=== PATIENT | male | born 1965 | race Caucasian/White ===

== ENCOUNTER → 2016-08-15 | Outpatient (CLI) | payer BC ==
--- NOTE | 2016-08-15 09:18 | NM ---
EXAMINATION TYPE: NM hepatobiliary w EF DATE OF EXAM: 08/15/2016 9:13 AM COMPARISON: NONE HISTORY: Right upper quadrant pain TECHNIQUE: After the intravenous administration of 5.44 mCi Tc 99m Mebrofenin hepatobiliary scintigra phy is performed. Immediate images post injection. FINDINGS: There is satisfactory initial accumulation of tracer by the liver. The gallbladder is visualized wit hin 6 minutes. The small bowel was not visualized until after the ingestion of ensure. At one hour 8 ounces of oral ensure plus is given to mimic CCK and gallbladder ejection fraction is calculated at 45 %, in the normal range. Therefore there is no scintigraphic evidence of cystic or common bile robin t obstruction to suggest acute cholecystitis or gallbladder dyskinesia. IMPRESSION: AMBIGUOUS EXAMINATION. I COULD NOT EXCLUDE A PARTIAL DISTAL COMMON DUCT OBSTRUCTION. ERCP VERSUS MRCP WOULD BE SUGGESTED.
== END | disposition home or self-care (01) ==
LOC: RADNMMAIN 06:58
PROVIDERS: ATTEND Surgery
DX: R10.84 Generalized abdominal pain (principal)
CPT/HCPCS: 78226; A9537

== ENCOUNTER 2018-11-03 01:58 | Emergency (ER) | payer BC ==
[2018-11-03 02:08] VITALS: RESP 18; TEMP 98.3
[2018-11-03] MEDS ORDERED: SODIUM CHLORIDE 0.9% 1,000 ML IV STA (02:21)
[2018-11-03] MEDS ORDERED: ONDANSETRON 4 MG/2 ML VIAL IVP STA (02:21)
[2018-11-03] MEDS ORDERED: DICYCLOMINE 10 MG/ML 2 ML AMP IM STA (02:22)
[2018-11-03] MEDS ORDERED: FAMOTIDINE 20 MG/2 ML VIAL IV STA (02:22)
--- NOTE | 2018-11-03 02:24 | ED ---
Nausea/Vomiting/Diarrhea HPI - General Source: patient Mode of arrival: ambulatory Limitations: no limitations <Radha Palomino - Last Filed: 11/03/18 04:10> <Imelda Clemens - Last Filed: 11/03/18 06:04> - General Chief complaint: Nausea/Vomiting/Diarrhea Stated complaint: Nausea Time Seen by Provider: 11/03/18 02:10 - History of Present Illness Initial comments: 53-year-old male patient presents to the emergency department today for evaluation of vomiting and diarrhea. Patient states symptoms started late last night have been persistent throughout the day today. Patient states he has had an amount of diarrhea and vomiting. Denies any hematemesis, hematochezia, or melena. Patient is concerned he may be some "bad eggs "at work last evening. Patient states he has had low-grade temperature around 100.4 throughout the night. States he is having generalized abdominal cramping. Denies any focal tenderness or pain. Patient does admit to cholecystectomy in the past but denies any other medical history or surgeries. Patient denies any recent rash, shortness breath, chest pain, back pain, numbness, tingling, dizziness, weakness, hematuria, dysuria, urinary urgency, urinary frequency, headache, visual changes, or any other complaints. (Radha Palomino) - Related Data Previous Rx's Medication Instructions Recorded Dicyclomine [Bentyl] 20 mg PO QID #12 tablet 11/03/18 Ondansetron [Zofran ODT] 4 mg PO Q8HR PRN #10 tab 11/03/18 Allergies Allergy/AdvReac Type Severity Reaction Status Date / Time Penicillins Allergy Unknown Verified 11/03/18 02:08 Childhood prednisone Allergy Rash/Hives Verified 11/03/18 02:08 Review of Systems ROS Other: All systems not noted in ROS Statement are negative. <Radha Palomino - Last Filed: 11/03/18 04:10> ROS Other: All systems not noted in ROS Statement are negative. <Imelda Clemens - Last Filed: 11/03/18 06:04> ROS Statement: Those systems with pertinent positive or pertinent negative responses have been documented in the HPI. Past Medical History Additional Past Medical History / Comment(s): GALLSTONES 2 YEARS AGO WHICH MADE HIM VERY SICK - HAD SOME LIVER PROBLEMS A RESULT History of Any Multi-Drug Resistant Organisms: None Reported Past Surgical History: Cholecystectomy Past Psychological History: No Psychological Hx Reported Smoking Status: Former smoker Past Alcohol Use History: None Reported Past Drug Use History: None Reported <Radha Palomino - Last Filed: 11/03/18 04:10> General Exam Limitations: no limitations General appearance: alert, in no apparent distress, other (Physical well-developed, well-nourished adult male patient in no acute distress. Vital signs upon presentation are temperature 98.3F, pulse 114, respirations 18, blood pressure 129/81, pulse ox 94% on room air.) Eye exam: Present: normal appearance, PERRL, EOMI. Absent: scleral icterus, conjunctival injection, periorbital swelling ENT exam: Present: normal exam, normal oropharynx, mucous membranes moist Respiratory exam: Present: normal lung sounds bilaterally. Absent: respiratory distress, wheezes, rales, rhonchi, stridor Cardiovascular Exam: Present: regular rate, normal rhythm, normal heart sounds. Absent: systolic murmur, diastolic murmur, rubs, gallop, clicks GI/Abdominal exam: Present: soft, normal bowel sounds. Absent: distended, tenderness, guarding, rebound, rigid Neurological exam: Present: alert, oriented X3, CN II-XII intact Psychiatric exam: Present: normal affect, normal mood Skin exam: Present: warm, dry, intact, normal color. Absent: rash <Radha Palomino M - Last Filed: 11/03/18 04:10> Course Vital Signs 11/03/18 11/03/18 02:04 03:55 Temperature 98.3 F Pulse Rate 114 H 90 Respiratory 18 18 Rate Blood Pressure 129/81 116/63 O2 Sat by Pulse 94 L 96 Oximetry Medical Decision Making - Lab Data Result diagrams: 11/03/18 02:45 11/03/18 02:45 - Radiology Data Radiology results: report reviewed, image reviewed <Radha Palomino - Last Filed: 11/03/18 04:10> - Lab Data Result diagrams: 11/03/18 02:45 11/03/18 02:45 <Imelda Clemens - Last Filed: 11/03/18 06:04> - Medical Decision Making 53-year-old male patient presents to the emergency department today for evaluation of vomiting and diarrhea. Physical examination reveals soft nontender abdomen. Labs reviewed and did reveal elevated white blood cell count at 11.5. Remainder of labs are unremarkable. I did discuss findings and results with the patient. Patient symptoms and physical exam findings are consistent with gastroenteritis. Patient did have complete improvement of sympt oms with administration of IV medications. Abdomen is soft and nontender at this time. He'll be discharged home with prescription for Zofran and Bentyl. He is instructed to follow-up with his primary care physician for recheck in 1-2 days. Return parameters discussed in detail. He verbalizes understanding and agrees with this plan. (Radha Palomino) I was available for consultation in the emergency department. The history and physical exam were done by the midlevel provider. I was consulted for this patient's care. I reviewed the case with the midlevel provider and based on their presentation of the patient, I agree with the assessment, medical decision making and plan of care as documented. Chart was dictated using [employer] dictation software. Attempts were made to correct any dictation errors however some typographical errors may persist. (Imelda Clemens) - Lab Data Lab Results 11/03/18 11/03/18 11/03/18 Range/Units 02:45 02:45 03:20 WBC 11.5 H (3.8-10.6) k/uL RBC 4.61 (4.30-5.90) m/uL Hgb 14.1 (13.0-17.5) gm/dL Hct 40.7 (39.0-53.0) % MCV 88.3 (80.0-100.0) fL MCH 30.5 (25.0-35.0) pg MCHC 34.6 (31.0-37.0) g/dL RDW 13.9 (11.5-15.5) % Plt Count 187 (150-450) k/uL Neutrophils % 54 % Lymphocytes % 38 % Monocytes % 2 % Eosinophils % 1 % Basophils % 0 % Neutrophils # 6.2 (1.3-7.7) k/uL Lymphocytes # 4.4 (1.0-4.8) k/uL Monocytes # 0.3 (0-1.0) k/uL Eosinophils # 0.1 (0-0.7) k/uL Basophils # 0.0 (0-0.2) k/uL Manual Slide Review Performed Sodium 138 (137-145) mmol/L Potassium 4.7 (3.5-5.1) mmol/L Chloride 104 (98-107) mmol/L Carbon Dioxide 24 (22-30) mmol/L Anion Gap 10 mmol/L BUN 20 (9-20) mg/dL Creatinine 0.95 (0.66-1.25) mg/dL Est GFR (CKD-EPI)AfAm >90 (>60 ml/min/1.73 sqM) Est GFR (CKD-EPI)NonAf >90 (>60 ml/min/1.73 sqM) Glucose 139 H (74-99) mg/dL Calcium 9.2 (8.4-10.2) mg/dL Total Bilirubin 1.0 (0.2-1.3) mg/dL AST 22 (17-59) U/L ALT 33 (21-72) U/L Alkaline Phosphatase 56 (38-126) U/L Total Protein 6.8 (6.3-8.2) g/dL Albumin 4.6 (3.5-5.0) g/dL Amylase 32 (30-110) U/L Lipase 16 L (23-300) U/L Urine Color Yellow Urine Appearance Clear (Clear) Urine pH 6.5 (5.0-8.0) Ur Specific [place] 1.032 (1.001-1.035) Urine Protein 1+ H (Negative) Urine Glucose (UA) Negative (Negative) Urine Ketones Trace H (Negative) Urine Blood Trace H (Negative) Urine Nitrite Negative (Negative) Urine Bilirubin Negative (Negative) Urine Urobilinogen 3.0 (<2.0) mg/dL Ur Leukocyte Esterase Negative (Negative) Urine RBC 4 (0-5) /hpf Urine WBC 1 (0-5) /hpf Urine Mucus Many H (None) /hpf - Radiology Data 2 views of the abdomen are obtained. Report was reviewed in its entirety. Impression by Dr. Edouard shows nonspecific, nonobstructive bowel gas pattern (Radha Palomino) Disposition Is patient prescribed a controlled substance at d/c from ED?: No Time of Disposition: 04:08 <Radha Palomino - Last Filed: 11/03/18 04:10> <Imelda Clemens P - Last Filed: 11/03/18 06:04> Clinical Impression: Gastroenteritis Disposition: HOME SELF-CARE Condition: Good Instructions (If sedation given, give patient instructions): Acute Nausea and Vomiting (ED), Acute Diarrhea (ED) Additional Instructions: Start with clear liquid diet and advance as tolerated. Take medications as directed. Return to the emergency department immediately for any new, worsening, or concerning symptoms. Prescriptions: Dicyclomine [Bentyl] 20 mg PO QID #12 tablet Ondansetron [Zofran ODT] 4 mg PO Q8HR PRN #10 tab PRN Reason: Nausea Referrals: Waqas Espinal DO [Primary Care Provider] - 1-2 days
[2018-11-03 03:21] LABS: Basophils % (A) 0 %; Eosinophils # (A) 0.1 k/uL (0-0.7); Eosinophils % (A) 1 %; HCT 40.7 % (39.0-53.0); HGB 14.1 gm/dL (13.0-17.5); Lymphocytes # (A) 4.4 k/uL (1.0-4.8); Lymphocytes % (A) 38 %; MCH 30.5 pg (25.0-35.0); MCHC 34.6 g/dL (31.0-37.0); MCV 88.3 fL (80.0-100.0); Mean Platelet Volume 7.7; Monocytes # (A) 0.3 k/uL (0-1.0); Monocytes % (A) 2 %; Neutrophils # (A) 6.2 k/uL (1.3-7.7); Neutrophils % (A) 54 %; Platelet Count 187 k/uL (150-450); RBC 4.61 m/uL (4.30-5.90); RDW 13.9 % (11.5-15.5); WBC 11.5 k/uL (3.8-10.6)
[2018-11-03 03:24] LABS: Albumin 4.6 g/dL (3.5-5.0); Amylase 32 U/L (30-110); Anion Gap 10 mmol/L; Blood Urea Nitrogen 20 mg/dL (9-20); Calcium 9.2 mg/dL (8.4-10.2); Carbon Dioxide 24 mmol/L (22-30); Chloride 104 mmol/L (98-107); Glucose 139 mg/dL (74-99); Lipase 16 U/L (23-300); Sodium 138 mmol/L (137-145); Total Protein 6.8 g/dL (6.3-8.2)
[2018-11-03 03:34] LABS: ALT 33 U/L (21-72); AST 22 U/L (17-59); Alkaline Phosphatase 56 U/L (38-126); Potassium 4.7 mmol/L (3.5-5.1)
--- NOTE | 2018-11-03 03:44 | XR ---
INDICATION: Abdominal pain COMPARISON: None FINDINGS: 2 upright AP views of the abdomen are provided. There are cholecystectomy clips in the right upper quadrant. The bowel gas pattern is nonspecific and nonobstructive. There is no evidence of free air. No abnormal abdominal calcifications are noted. Regional skeleton appears intact. Frontal view of the abdomen demonstrates a normal bowel gas pattern. No evidence of organomegaly, abnormal calcifications or obvious soft tissue masses. The osseous structures are intact. IMPRESSION: Nonspecific, nonobstructive bowel gas pattern.
[2018-11-03 03:57] VITALS: BP 116/63; PULSE 90
[2018-11-03 04:04] LABS: Appearance,Urine Clear (Clear); Bilirubin,Urine Negative (Negative); Blood,Urine Trace (Negative); Color,Urine Yellow; Glucose,Urine (UA) Negative (Negative); Ketones,Urine Trace (Negative); Leukocyte Esterase,Urine Negative (Negative); Mucus,Urine Many /hpf; Nitrite,Urine Negative (Negative); PH, Urine 6.5 (5.0-8.0); Protein,Urine 1+ (Negative); RBC,Urine 4 /hpf (0-5); Specific Gravity,Urine 1.032 (1.001-1.035); WBC,Urine 1 /hpf (0-5)
[2018-11-03] MEDS ORDERED: ONDANSETRON 4 MG ODT STARTER PACK 2 TAB BTL PO STA (04:06)
== END 2018-11-03 04:36 | disposition home or self-care (01) ==
LOC: EC 01:58
DX: K52.9 Noninfective gastroenteritis and colitis, unspecified (principal); Z88.0 Allergy status to penicillin; Z88.8 Allergy status to other drugs, medicaments and biological substances; Z90.49 Acquired absence of other specified parts of digestive tract; Z87.891 Personal history of nicotine dependence
CPT/HCPCS: 36415; 80053; 82150; 83690; 85025; 81001; 74018; 99284; 96374; 96375; 96361; 96372; J0500; J2405; S0119

== ENCOUNTER 2019-02-28 14:45 | Emergency (ER) | payer BC ==
[2019-02-28 15:17] VITALS: BP 127/86; PULSE 83; RESP 18; TEMP 98
[2019-02-28] MEDS ORDERED: LIDOCAINE 1% INJ 10MG/ML (20 ML MDV) SQ ONE (15:23)
--- NOTE | 2019-02-28 15:26 | ED ---
Wound/Laceration HPI - General Chief Complaint: Wound/Laceration Stated Complaint: Thumb laceration Time Seen by Provider: 02/28/19 15:20 Source: patient, RN notes reviewed Mode of arrival: ambulatory Limitations: no limitations - History of Present Illness Initial Comments: 53-year-old male presents emergency Department chief complaint of laceration. Patient states that she was cutting watermelon states that he cut his right thumb. He is [id number]. Patient states that there is a large amount of bleeding but has subsided. Patient states he is up-to-date on his tetanus. Denies any paresthesias no decreased range of motion. - Related Data Previous Rx's Medication Instructions Recorded Dicyclomine [Bentyl] 20 mg PO QID #12 tablet 11/03/18 Ondansetron [Zofran ODT] 4 mg PO Q8HR PRN #10 tab 11/03/18 Allergies Allergy/AdvReac Type Severity Reaction Status Date / Time Penicillins Allergy Unknown Verified 02/28/19 15:15 Childhood prednisone Allergy Rash/Hives Verified 02/28/19 15:15 Review of Systems ROS Statement: Those systems with pertinent positive or pertinent negative responses have been documented in the HPI. ROS Other: All systems not noted in ROS Statement are negative. Past Medical History Additional Past Medical History / Comment(s): GALLSTONES 2 YEARS AGO WHICH MADE HIM VERY SICK - HAD SOME LIVER PROBLEMS A RESULT History of Any Multi-Drug Resistant Organisms: None Reported Past Surgical History: Cholecystectomy Past Psychological History: No Psychological Hx Reported Smoking Status: Former smoker Past Alcohol Use History: None Reported Past Drug Use History: None Reported General Exam Limitations: no limitations General appearance: alert, in no apparent distress Respiratory exam: Present: normal lung sounds bilaterally. Absent: respiratory distress, wheezes, rales, rhonchi, stridor Cardiovascular Exam: Present: regular rate, normal rhythm, normal heart sounds. Absent: systolic murmur, diastolic murmur, rubs, gallop, clicks Extremities exam: Present: other (Right thumb there is a 1 cm flap laceration with no active bleeding full range of motion neurovascular intact full strength) Course Vital Signs 02/28/19 15:14 Temperature 98.0 F Pulse Rate 83 Respiratory 18 Rate Blood Pressure 127/86 O2 Sat by Pulse 97 Oximetry Procedures - Laceration Laceration #1 Consent Obtained: verbal consent Site: hand Size (cm): 1 Description: flap Anesthetic Used: lidocaine 1%, without epi Anesthesia Technique: local infiltration Amount (mls): 3 Pre-repair: wound explored, irrigated extensively, deep structures intact Type of Sutures: nylon Size of Sutures: 5-0 Number of Sutures: 4 Technique: simple, interrupted Patient Tolerated Procedure: well, no complications Medical Decision Making - Medical Decision Making 53-year-old male presented for thumb laceration. This was sutured in the emergency room no complaints. Patient was discharged wound care instructions provided. Return parameters provided Disposition Clinical Impression: Laceration of right thumb Disposition: HOME SELF-CARE Condition: Stable Instructions (If sedation given, give patient instructions): Care For Your Stitches (ED), Laceration (ED) Additional Instructions: Please return to the Emergency Department if symptoms worsen or any other concerns. Have sutures removed in 10 days. Is patient prescribed a controlled substance at d/c from ED?: No Referrals: Waqas Espinal DO [Primary Care Provider] - 1-2 days Time of Disposition: 15:26
== END 2019-02-28 16:28 | disposition home or self-care (01) ==
LOC: EC 14:45
DX: S61.011A Laceration without foreign body of right thumb without damage to nail, initial encounter (principal); Z87.891 Personal history of nicotine dependence; Z88.0 Allergy status to penicillin; Z88.8 Allergy status to other drugs, medicaments and biological substances; W26.9XXA Contact with unspecified sharp object(s), initial encounter; Y93.89 Activity, other specified
CPT/HCPCS: 99282; 12001; J2001

== ENCOUNTER → 2019-03-12 | Outpatient (CLI) | payer BC ==
--- NOTE | 2019-03-12 16:41 | US ---
EXAMINATION TYPE: US venous doppler duplex LE RT DATE OF EXAM: 03/12/2019 4:16 PM COMPARISON: NONE CLINICAL HISTORY: R25.2 Cramp and spasm. Right lateral leg pain and calf pain noted x several weeks a fter moving household goods; patient stated initially had swelling with symptoms SIDE PERFORMED: Right TECHNIQUE: The lower extremity deep venous system is examined utilizing real time linear array sonog yoel with graded compression, doppler sonography and color-flow sonography. VESSELS IMAGED: Common Femoral Vein Deep Femoral Vein Greater Saphenous Vein * Femoral Vein Popliteal Vein Small Saphenous Vein * Proximal Calf Veins (* superficial vessels) FINDINGS: Grayscale, color doppler, spectral Doppler imaging performed of the deep veins of the lower extremities. There is normal flow, compressibility, vascular waveforms. IMPRESSION: NEGATIVE FOR DVT, RIGHT LOWER EXTREMITY.
[2019-03-12 17:06] LABS: HCT 22.2 % (39.0-53.0); HGB 7.7 gm/dL (13.0-17.5); MCH 31.6 pg (25.0-35.0); MCHC 34.7 g/dL (31.0-37.0); MCV 91.2 fL (80.0-100.0); Mean Platelet Volume 8.3; Platelet Count 264 k/uL (150-450); RBC 2.43 m/uL (4.30-5.90)
[2019-03-12 17:21] LABS: ALT 25 U/L (21-72); AST 17 U/L (17-59); African American GFR (CKD) >90 (>60 ml/min/1.73 sqM); Alkaline Phosphatase 60 U/L (38-126); Anion Gap 8 mmol/L; Blood Urea Nitrogen 18 mg/dL (9-20); Calcium 9.4 mg/dL (8.4-10.2); Carbon Dioxide 28 mmol/L (22-30); Chloride 102 mmol/L (98-107); Glucose 104 mg/dL (74-99); Potassium 3.8 mmol/L (3.5-5.1); Sodium 138 mmol/L (137-145); Total Bilirubin 0.5 mg/dL (0.2-1.3)
[2019-03-12 17:27] LABS: Lymphocytes # (M) 4.83 k/uL (1.0-4.8); Monocytes # (M) 0.07 k/uL (0-1.0); Neutrophils % (M) 30 %; Nucleated Red Blood Cells 0 /100 WBC (0-0); Ovalocytes Present; Total Cells Counted 100
== END | disposition home or self-care (01) ==
LOC: RADUSWWP 15:44
PROVIDERS: ATTEND Family Medicine
DX: R25.2 Cramp and spasm (principal); R53.83 Other fatigue
CPT/HCPCS: 80053; 82306; 84443; 85025

== ENCOUNTER 2019-03-14 11:16 | Inpatient (IN) | payer BC ==
[2019-03-14] MEDS ORDERED: SODIUM CHLORIDE 0.9% 500 ML 500 ML IV STA (11:59)
[2019-03-14] MEDS ORDERED: NITROGLYCERIN OINT 1 INCH/GM PACKET TOPICAL STA (11:59)
[2019-03-14] MEDS ORDERED: ASPIRIN 81 MG PO STA (11:59)
--- NOTE | 2019-03-14 12:11 | ED ---
General Adult HPI - General Chief complaint: Chest Pain Stated complaint: Chest pain, SOB Time Seen by Provider: 03/14/19 11:20 Source: patient, RN notes reviewed Mode of arrival: ambulatory - History of Present Illness Initial comments: This is a 53-year-old male who presents emergency Department with family history of heart disease. Patient denies any history of diabetes high blood pressure high cholesterol. Patient denies any smoking history. Patient states for about a week he's had this tightness across his chest and right sided arm pain and sometimes right-sided leg pain. Patient states stable to have full range of motion of the arm has normal sensation of the arm and leg. Patient denies any headache. Patient denies any abdominal pain patient denies nausea vomiting diarrhea. Patient denies any recent injury or trauma. Patient denies any injury. Patient states exertion does appear to make the pain worse as well as shortness of breath worse. Patient denies any swelling to the legs or calf tenderness. - Related Data Home Medications Medication Instructions Recorded Confirmed Ibuprofen [Motrin Ib] 400 mg PO Q6H PRN 03/14/19 03/14/19 Allergies Allergy/AdvReac Type Severity Reaction Status Date / Time Penicillins Allergy Unknown Verified 03/14/19 11:34 Childhood prednisone Allergy Rash/Hives Verified 03/14/19 11:34 Review of Systems ROS Statement: Those systems with pertinent positive or pertinent negative responses have been documented in the HPI. ROS Other: All systems not noted in ROS Statement are negative. Past Medical History Additional Past Medical History / Comment(s): GALLSTONES 2 YEARS AGO WHICH MADE HIM VERY SICK - HAD SOME LIVER PROBLEMS A RESULT History of Any Multi-Drug Resistant Organisms: None Reported Past Surgical History: Cholecystectomy Past Psychological History: No Psychological Hx Reported Smoking Status: Former smoker Past Alcohol Use History: None Reported Past Drug Use History: None Reported General Exam - General Exam Comments Initial Comments: GENERAL: Patient is well-developed and well-nourished. Patient is nontoxic and well- hydrated and is in mild distress. ENT: Neck is soft and supple. No significant lymphadenopathy is noted. Oropharynx is clear. Moist mucous membranes. Neck has full range of motion without eliciting any pain. EYES: The sclera were anicteric and conjunctiva were pink and moist. Extraocular movements were intact and pupils were equal round and reactive to light. Eyelids were unremarkable. PULMONARY: Unlabored respirations. Good breath sounds bilaterally. No audible rales rhonchi or wheezing was noted. CARDIOVASCULAR: There is a regular rate and rhythm without any murmurs gallops or rubs. ABDOMEN: Soft and nontender with normal bowel sounds. No palpable organomegaly was noted. There is no palpable pulsatile mass. SKIN: Skin is clear with no lesions or rashes and otherwise unremarkable. NEUROLOGIC: Patient is alert and oriented x3. Cranial nerves II through XII are grossly intact. Motor and sensory are also intact. Normal speech, volume and content. Symmetrical smile. MUSCULOSKELETAL: Normal extremities with adequate strength and full range of motion. No lower extremity swelling or edema. No calf tenderness. LYMPHATICS: No significant lymphadenopathy is noted PSYCHIATRIC: Normal psychiatric evaluation. Course Vital Signs 03/14/19 03/14/19 11:19 12:34 Temperature 98.1 F Pulse Rate 108 H 102 H Respiratory 20 18 Rate Blood Pressure 146/86 105/72 O2 Sat by Pulse 99 98 Oximetry Medical Decision Making - Medical Decision Making EKG shows sinus tachycardia at 104 bpm GA interval 162 QRS is 82 QT interval 344 QTC is 452. Patient's EKG shows no ST segment elevation or depression or T wave abnormalities are noted. Patient's hemoglobin came back 7.1 in October it was 14.1. I did a rectal exam and sent it for occult blood. Patient denies any black or bloody stools. Patient states had a colonoscopy about a year ago. I ordered a type and screen. I spoke with Dr. Perez he agreed to admit the patient admitted the patient and wrote admitting orders. - Lab Data Result diagrams: 03/14/19 12:29 03/14/19 12:29 Lab Results 03/14/19 03/14/19 03/14/19 Range/Units 12:29 12:29 12:29 WBC 8.1 (3.8-10.6) k/uL RBC 2.23 L (4.30-5.90) m/uL Hgb 7.1 L (13.0-17.5) gm/dL Hct 20.1 L (39.0-53.0) % MCV 90.2 (80.0-100.0) fL MCH 31.7 (25.0-35.0) pg MCHC 35.1 (31.0-37.0) g/dL RDW 15.6 H (11.5-15.5) % Plt Count 240 (150-450) k/uL Neutrophils % (Manual) 42 % Lymphocytes % (Manual) 53 % Monocytes % (Manual) 5 % Neutrophils # (Manual) 3.40 (1.3-7.7) k/uL Lymphocytes # (Manual) 4.29 (1.0-4.8) k/uL Monocytes # (Manual) 0.41 (0-1.0) k/uL Nucleated RBCs 0 (0-0) /100 WBC Manual Slide Review Performed RBC Morphology Normal PT 10.5 (9.0-12.0) sec INR 1.0 (<1.2) APTT 23.5 (22.0-30.0) sec D-Dimer 0.26 (<0.60) mg/L FEU Sodium 138 (137-145) mmol/L Potassium 4.2 (3.5-5.1) mmol/L Chloride 105 (98-107) mmol/L Carbon Dioxide 27 (22-30) mmol/L Anion Gap 6 mmol/L BUN 23 H (9-20) mg/dL Creatinine 0.97 (0.66-1.25) mg/dL Est GFR (CKD-EPI)AfAm >90 (>60 ml/min/1.73 sqM) Est GFR (CKD-EPI)NonAf >90 (>60 ml/min/1.73 sqM) Glucose 94 (74-99) mg/dL Calcium 9.2 (8.4-10.2) mg/dL Magnesium 2.1 (1.6-2.3) mg/dL Total Bilirubin 0.5 (0.2-1.3) mg/dL AST 17 (17-59) U/L ALT 28 (21-72) U/L Alkaline Phosphatase 55 (38-126) U/L Troponin I (0.000-0.034) ng/mL Total Protein 5.7 L (6.3-8.2) g/dL Albumin 3.7 (3.5-5.0) g/dL 03/14/19 Range/Units 12:29 WBC (3.8-10.6) k/uL RBC (4.30-5.90) m/uL Hgb (13.0-17.5) gm/dL Hct (39.0-53.0) % MCV (80.0-100.0) fL MCH (25.0-35.0) pg MCHC (31.0-37.0) g/dL RDW (11.5-15.5) % Plt Count (150-450) k/uL Neutrophils % (Manual) % Lymphocytes % (Manual) % Monocytes % (Manual) % Neutrophils # (Manual) (1.3-7.7) k/uL Lymphocytes # (Manual) (1.0-4.8) k/uL Monocytes # (Manual) (0-1.0) k/uL Nucleated RBCs (0-0) /100 WBC Manual Slide Review RBC Morphology PT (9.0-12.0) sec INR (<1.2) APTT (22.0-30.0) sec D-Dimer (<0.60) mg/L FEU Sodium (137-145) mmol/L Potassium (3.5-5.1) mmol/L Chloride (98-107) mmol/L Carbon Dioxide (22-30) mmol/L Anion Gap mmol/L BUN (9-20) mg/dL Creatinine (0.66-1.25) mg/dL Est GFR (CKD-EPI)AfAm (>60 ml/min/1.73 sqM) Est GFR (CKD-EPI)NonAf (>60 ml/min/1.73 sqM) Glucose (74-99) mg/dL Calcium (8.4-10.2) mg/dL Magnesium (1.6-2.3) mg/dL Total Bilirubin (0.2-1.3) mg/dL AST (17-59) U/L ALT (21-72) U/L Alkaline Phosphatase (38-126) U/L Troponin I <0.012 (0.000-0.034) ng/mL Total Protein (6.3-8.2) g/dL Albumin (3.5-5.0) g/dL Critical Care Time Critical Care Time: Yes Total Critical Care Time: 35 Disposition Clinical Impression: Anemia, Dyspnea, Chest pain Disposition: ADMITTED IP TO THIS HOSP Referrals: Waqas Espinal DO [Primary Care Provider] - 1-2 days Time of Disposition: 14:02
[2019-03-14 12:59] LABS: ALT 28 U/L (21-72); AST 17 U/L (17-59); African American GFR (CKD) >90 (>60 ml/min/1.73 sqM); Albumin 3.7 g/dL (3.5-5.0); Alkaline Phosphatase 55 U/L (38-126); Anion Gap 6 mmol/L; Blood Urea Nitrogen 23 mg/dL (9-20); Calcium 9.2 mg/dL (8.4-10.2); Carbon Dioxide 27 mmol/L (22-30); Chloride 105 mmol/L (98-107); Glucose 94 mg/dL (74-99); Magnesium 2.1 mg/dL (1.6-2.3); Potassium 4.2 mmol/L (3.5-5.1); Sodium 138 mmol/L (137-145); Total Bilirubin 0.5 mg/dL (0.2-1.3); Total Protein 5.7 g/dL (6.3-8.2)
[2019-03-14 13:00] LABS: HCT 20.1 % (39.0-53.0); HGB 7.1 gm/dL (13.0-17.5); MCH 31.7 pg (25.0-35.0); MCHC 35.1 g/dL (31.0-37.0); MCV 90.2 fL (80.0-100.0); Platelet Count 240 k/uL (150-450); RBC 2.23 m/uL (4.30-5.90); RDW 15.6 % (11.5-15.5); WBC 8.1 k/uL (3.8-10.6)
--- NOTE | 2019-03-14 13:01 | XR ---
EXAMINATION TYPE: XR chest 2V DATE OF EXAM: 03/14/2019 COMPARISON: Chest x-ray April 25, 2012 HISTORY: Chest pain. TECHNIQUE: Frontal and lateral views of the chest are obtained. FINDINGS: Overlying EKG leads are seen. There is no focal air space opacity, pleural effusion, or pn eumothorax seen. The cardiac silhouette size is within normal limits. The osseous structures are i ntact. IMPRESSION: No acute process. No significant change from prior.
[2019-03-14 13:09] LABS: D-Dimer 0.26 mg/L FEU (<0.60); Partial Thromboplastin Time 23.5 sec (22.0-30.0); Prothrombin Time 10.5 sec (9.0-12.0)
[2019-03-14 13:45] LABS: Lymphocytes # (M) 4.29 k/uL (1.0-4.8); Monocytes # (M) 0.41 k/uL (0-1.0); Neutrophils % (M) 42 %; Nucleated Red Blood Cells 0 /100 WBC (0-0); Total Cells Counted 100
[2019-03-14] MEDS ORDERED: NITROGLYCERIN SL TABS 0.4 MG TAB SUBLINGUAL PRN (14:02)
[2019-03-14] MEDS ORDERED: PANTOPRAZOLE 40 MG/10 ML VIAL IVP STA (14:05)
[2019-03-14 14:46] VITALS: BMI 32.1
[2019-03-14] MEDS ORDERED: ACETAMINOPHEN TAB 500 MG TAB PO PRN (21:43)
--- NOTE | 2019-03-14 21:51 | P.HPIM ---
History of Present Illness H&P Date: 03/14/19 Chief Complaint: Tired History of presenting complaint: This is a pleasant 53-year-old patient of Dr. Espinal. Chronic stable medical conditions include GERD, arthralgias, diverticulosis. Patient for quite a few weeks progressively has been feeling weak and tired more so in the last 2 weeks. Patient is noticed to become dizzy lightheaded. Gets short of breath with exertion and chest tightness. Patient has aches and pains and joint for many years. Takes anywhere from 200-600 mg of Motrin intermittently. Has been using that more frequently recently. Patient just take his stools but denies any black stools. Denies any abdominal pain. Does get reflux symptoms. Presented to the ER. Was found to have a hemoglobin of 7.1. One unit of blood was ordered. at the bedside. Review of systems: GEN.: Weak tired and dizzy EYES: None HEENT: None NECK: None RESPIRATORY: None CARDIOVASCULAR: None GASTROINTESTINAL: None GENITOURINARY: None MUSCULOSKELETAL: Achiness in the joints LYMPHATICS: None HEMATOLOGICAL: None PSYCHIATRY: None NEUROLOGICAL: None Social history: , smoked off and on for about 28 years, stopped in 2010. 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 No alcohol. Family history: Diabetes Physical examination: VITAL SIGNS: 98.1, 108, 20, 146/86, 99% room air GENERAL: BMI 32.1, sitting up, a bit tired. EYES: Pupils equal. Conjunctiva palel. HEENT: External appearance of nose and ears normal, oral cavity grossly normal. NECK: JVD not raised; masses not palpable. HEART: First and second heart sounds are normal; no edema. LUNGS: Respiratory rate normal; clear to auscultation. ABDOMEN: Soft, nontender, liver spleen not palpable, no masses palpable. PSYCH: Alert and oriented x3; mood and affect normal. NEUROLOGICAL: Cranial nerves grossly intact; no facial asymmetry, power and sensation grossly intact. LYMPHATICS: No lymph nodes palpable in the axilla and neck INVESTIGATIONS, reviewed in the clinical context: White count 8.1 hemoglobin 7.1 normal MCV potassium 4.2 creatinine 0.97 Troponin 2 negative EKG tracing personally reviewed by me-normal sinus rhythm Chest x-ray film personally reviewed by me-life is a clear Assessment: -This is a patient progressive over a few weeks feeling progressively weak and tired and dizzy lightheaded. Was rather pale also. Noticed by his and colleagues. Admitting hemoglobin was 7.1. Patient does take NSAIDs intermittently for quite some time. Has been using them more frequently recently. Strongly suspicious for upper GI bleed. The patient denies any dark stools. Patient is also normocytic. If GI workup is negative then need to consider other causes of anemia. That would include hematological consultation. -Obesity BMI 32.1 -GERD -Chronic arthralgias -Colonic diverticulosis -Symptomatic normocytic anemia suspicious from above Plan: Patient was transfused unit of blood. Repeat hemoglobin in the morning. GI is being consulted for an EGD and will be made nothing by mouth after midnight. Patient has been put on PPI. At this point doubt this to be a primary cardiac event but given his chest tightness to get opinion from them. Patient does not really have cardiac risk factors, except for obesity. Care was discussed at length with the patient and questions were answered. Past Medical History Past Medical History: Asthma, GERD/Reflux, Osteoarthritis (OA), Pneumonia Additional Past Medical History / Comment(s): Past gallstones-pt states he was very ill and had liver involvement, diverticular disease, arthritis in multiple joints, chronic pain, occasional headaches. History of Any Multi-Drug Resistant Organisms: None Reported Past Surgical History: Cholecystectomy Additional Past Surgical History / Comment(s): colonoscopy Past Anesthesia/Blood Transfusion Reactions: No Reported Reaction Smoking Status: Former smoker - Past Family History Mother Family Medical History: Diabetes Mellitus Additional Family Medical History / Comment(s): diet controlled diabetic Father Family Medical History: Cancer, CVA/TIA, Myocardial Infarction ([place]) Additional Family Medical History / Comment(s): Multiple types of cancer, CVAs, MIs with first [place] in his late 40s or early 50s. Medications and Allergies Home Medications Medication Instructions Recorded Confirmed Type Ibuprofen [Motrin Ib] 400 mg PO Q6H PRN 03/14/19 03/14/19 History Allergies Allergy/AdvReac Type Severity Reaction Status Date / Time Penicillins Allergy Unknown Verified 03/14/19 11:34 Childhood prednisone Allergy Rash/Hives Verified 03/14/19 11:34 Physical Exam Vitals: Vital Signs Temp Pulse Pulse Resp BP BP Pulse Ox 03/14/19 20:00 18 03/14/19 19:03 96.9 F L 86 18 119/69 03/14/19 18:44 97.7 F 03/14/19 18:33 96.9 F L 84 16 119/69 98 03/14/19 18:23 98.1 F 90 18 117/66 03/14/19 17:57 97.7 F 92 18 129/71 99 03/14/19 15:00 98.8 F 94 18 130/78 99 03/14/19 12:34 102 H 18 105/72 98 03/14/19 11:19 98.1 F 108 H 20 146/86 99 Intake and Output 03/14/19 03/14/19 03/14/19 06:59 14:59 22:59 Intake Total 0 Balance 0 Intake: Blood Product 0 Rc Pheresis 2 As3 Unit 0 [id number] Other: # Voids 1 Weight 104.326 kg Results CBC & Chem 7: 03/14/19 12:29 03/14/19 12:29 Labs: Abnormal Lab Results - Last 24 Hours (Table) 03/14/19 03/14/19 03/14/19 Range/Units 12:29 12:29 14:18 RBC 2.23 L (4.30-5.90) m/uL Hgb 7.1 L (13.0-17.5) gm/dL Hct 20.1 L (39.0-53.0) % RDW 15.6 H (11.5-15.5) % BUN 23 H (9-20) mg/dL Total Protein 5.7 L (6.3-8.2) g/dL Crossmatch See Detail Thrombosis Risk Factor Assmnt - Choose All That Apply Any of the Below Risk Factors Present?: Yes Each Factor Represents 1 point: Age 41-60 years, Obesity (BMI >25) Other Risk Factors: No Other congenital or acquired thrombophilia - If yes, enter type in comment: No Thrombosis Risk Factor Assessment Total Risk Factor Score: 2 Thrombosis Risk Factor Assessment Level: Low Risk
[2019-03-14] MEDS: PANTOPRAZOLE 40 MG TABLET PO SCH (23:29)
[2019-03-15 01:01] LABS: Basophils % (A) 0 %; Eosinophils # (A) 0.1 k/uL (0-0.7); Eosinophils % (A) 1 %; HCT 21.3 % (39.0-53.0); HGB 7.3 gm/dL (13.0-17.5); Lymphocytes # (A) 4.7 k/uL (1.0-4.8); Lymphocytes % (A) 57 %; MCH 31.3 pg (25.0-35.0); MCHC 34.3 g/dL (31.0-37.0); MCV 91.2 fL (80.0-100.0); Mean Platelet Volume 9.5; Monocytes # (A) 0.3 k/uL (0-1.0); Monocytes % (A) 3 %; Neutrophils # (A) 2.8 k/uL (1.3-7.7); Neutrophils % (A) 34 %; Platelet Count 189 k/uL (150-450); RBC 2.33 m/uL (4.30-5.90); RDW 15.4 % (11.5-15.5); WBC 8.2 k/uL (3.8-10.6)
[2019-03-15 06:46] LABS: HCT 21.9 % (39.0-53.0); HGB 7.6 gm/dL (13.0-17.5); MCH 31.3 pg (25.0-35.0); MCHC 34.6 g/dL (31.0-37.0); MCV 90.6 fL (80.0-100.0); Mean Platelet Volume 8.3; Platelet Count 238 k/uL (150-450); RBC 2.42 m/uL (4.30-5.90); RDW 15.4 % (11.5-15.5); WBC 8.3 k/uL (3.8-10.6)
[2019-03-15 06:59] LABS: Cholesterol 87 mg/dL (<200); HDL Cholesterol 30 mg/dL (40-60); LDL Cholesterol,Calculated 45 mg/dL (0-99); Triglycerides 59 mg/dL (<150)
[2019-03-15] MEDS: PANTOPRAZOLE 40 MG TABLET PO SCH ×2 (08:45→16:56)
--- NOTE | 2019-03-15 10:15 | P.PN ---
Subjective This is a pleasant 53 years old male with past medical history of asthma, GERD, osteoarthritis, gallstone disease. Presents because of his low hemoglobin. Patient follow up with Dr. cortez as his primary care doctor, because he could not get hold of his PCP he went to see Dr. Mark at urgent care for her right arm and leg pain for a few days duration. Workup came back showing low hemoglobin at 7+ and received a call to come to emergency room. Patient does not have any more pain in his right leg or arm anymore. However patient was complaining of from chest pain of one-day duration that is central and going across his front of the chest, 5/10 in severity felt like tightness and aching associated with some dyspnea and presyncope which could be related to his low hemoglobin. Currently his chest pain has resolved and is rated as 0/10. No dyspnea. No more dizziness. And he is back to his usual state. Also patient denies abdominal pain, no nausea vomiting, no hematemesis or hemoptysis. No hematuria or blood in stool. No change in his urine or bowel habits. No fever He denies smoking, alcohol or illicit drugs. His father has heart disease in his late 40s home also he had history of lymphoma and leukemia Vitals stable. Labs showing hemoglobin running 7.1-7.6. Baseline hemoglobin is 14.1 on 10/2018. BMP and liver enzymes not elevated and serial troponins were negative. Occult blood in stool is negative. EKG shows sinus tachycardia at 104 with QTC 452, with no significant ST-T changes. Chest x-ray: No acute proce ss. Patient had Negative Doppler of his right lower leg done on 03/12/2019 Patient was started on Protonix twice daily. Review of systems CONSTITUTIONAL: No fever, no malaise, no fatigue. HEENT: No recent visual problems or hearing problems. Denied any sore throat. CARDIOVASCULAR: No orthopnea, PND, no palpitations, no syncope. PULMONARY: No shortness of breath, no cough, no hemoptysis. GASTROINTESTINAL: No diarrhea, no nausea, no vomiting, no abdominal pain. Normoactive bowel sounds. NEUROLOGICAL: No headaches, no weakness, no numbness. HEMATOLOGICAL: Denies any bleeding or petechiae. GENITOURINARY: Denies any burning micturition, frequency, or urgency. MUSCULOSKELETAL/RHEUMATOLOGICAL: Denies any joint pain, swelling, or any muscle pain. ENDOCRINE: Denies any polyuria or polydipsia. Active Medications Generic Name Dose Route Start Last Admin Trade Name Frejasmin PRN Reason Stop Dose Admin Acetaminophen 500 mg 03/14/19 21:43 Tylenol Tab PO Q6HR PRN Fever and/ or Pain Nitroglycerin 0.4 mg 03/14/19 14:02 Nitrostat SUBLINGUAL Q5M PRN Chest Pain Pantoprazole Sodium 40 mg 03/14/19 21:45 03/15/19 08:45 Protonix PO Not Given AC-BID SHAWANDA Objective - Vital Signs Vital signs: Vital Signs Temp 98.1 F 03/15/19 06:40 Pulse 78 03/15/19 06:40 Resp 18 03/15/19 08:00 BP 111/72 03/15/19 06:40 Pulse Ox 98 03/15/19 06:40 Intake & Output 03/14/19 03/15/19 03/15/19 18:59 06:59 18:59 Intake Total 0 310 Balance 0 310 Weight 104.326 kg Intake: Blood Product 0 310 Rc Pheresis 2 As3 Unit 0 310 [id number] Other: # Voids 1 1 - Exam GENERAL: The patient is alert and oriented x3, not in any acute distress. Well developed, well nourished. HEENT: Pupils are round and equally reacting to light. EOMI. No scleral icterus. No conjunctival pallor. Normocephalic, atraumatic. No pharyngeal erythema. No thyromegaly. CARDIOVASCULAR: S1 and S2 present. No murmurs, rubs, or gallops. PULMONARY: Chest is clear to auscultation, no wheezing or crackles. ABDOMEN: Soft, nontender, nondistended, normoactive bowel sounds. No palpable organomegaly. MUSCULOSKELETAL: No joint swelling or deformity. EXTREMITIES: No cyanosis, clubbing, or pedal edema. NEUROLOGICAL: Gross neurological examination did not reveal any focal deficits. SKIN: No rashes. - Labs CBC & Chem 7: 03/15/19 05:27 03/14/19 12:29 Labs: Abnormal Lab Results - Last 24 Hours (Table) 03/14/19 03/14/19 03/14/19 Range/Units 12:29 12:29 14:18 RBC 2.23 L (4.30-5.90) m/uL Hgb 7.1 L (13.0-17.5) gm/dL Hct 20.1 L (39.0-53.0) % RDW 15.6 H (11.5-15.5) % BUN 23 H (9-20) mg/dL Total Protein 5.7 L (6.3-8.2) g/dL HDL Cholesterol (40-60) mg/dL Crossmatch See Detail 03/15/19 03/15/19 03/15/19 Range/Units 00:48 05:27 05:27 RBC 2.33 L 2.42 L (4.30-5.90) m/uL Hgb 7.3 L 7.6 L (13.0-17.5) gm/dL Hct 21.3 L 21.9 L (39.0-53.0) % RDW (11.5-15.5) % BUN (9-20) mg/dL Total Protein (6.3-8.2) g/dL HDL Cholesterol 30 L (40-60) mg/dL Crossmatch Assessment and Plan Assessment: -Acute Severe anemia, rule out GI bleed -Chest pain, rule out cardiac causes. Family history of heart disease -Presyncope, mostly related to his severe anemia -History of asthma, not an active issue -GERD -Osteoarthritis -History of gallstone disease -Diverticular disease Plan: This is a pleasant 53 years old male who presents with GI bleed. GI team evaluation the patient and he is going for endoscopy. Continue with Protonix. Also call cardiology consult in view of his chest pain and family history of heart disease. We'll do anemia workup. We'll order echocardiogram Labs and medication were reviewed.. Continue same treatment. Continue with symptomatic treatment. Resume home medication. Monitor lytes and vitals. DVT and GI prophylaxis. Further recommendations of the clinical course of the patient DVT prophylaxis: No heparin in view of possible GI bleeds and low hemoglobin GI Prophylaxis: Protonix
--- NOTE | 2019-03-15 11:24 | P.CONS ---
History of Present Illness - Reason for Consult Consult date: 03/15/19 anemia Requesting physician: Umer Perez - Chief Complaint fatigue - History of Present Illness 53-year-old male admitted with chest pain rating down his arm fatigue keven rtness of breath. Patient thought he was having a heart attack he has a family history of heart disease as well as leukemia. Admission hemoglobin 7.1. MCV 90. Platelet 240. Previous hemoglobin in October 2018 was 14.1. BUN 23. Creatinine 0.9. FOBT negative. Patient had a colonoscopy 1 year ago reports colonic diverticulosis otherwise a normal exam. Denies epigastric abdominal pain. He has been taking 400 mg of Motrin twice a day at times but not on a daily basis. No alcohol or aspirin therapy. No additional NSAIDs. No history of GI bleed or peptic ulcer disease. No recent EGD. No weight loss gross hematemesis hematochezia or melena. Transfused 1 unit of blood present hgb 7.6. Review of Systems constitutional: Denies fever, chills, sweats, weight gain, or loss. HEENT: Negative for migraines, blurred vision or loss, earaches, drainage, tinnitus, oral mucosal lesions, dysphagia, or odynophagia. Cardiac: Negative for chest pain, arrhythmias, or palpitation. Respiratory: Negative for shortness of breath, hemoptysis, cough, or sputum production. Gastrointestinal: See HPI for pertinent findings. Genitourinary: Negative for hematuria, urgency, frequency, polyuria, dysuria, or penile discharge. Musculoskeletal: Negative for muscle aches, swelling, arthritis, and arthralgias. Neurologic: Negative for stroke or TIA. Endocrine: Negative for thyroid problems. Skin: Negative for rash or itching. Psychiatric: Negative history for depression and anxiety Past Medical History Past Medical History: Asthma, GERD/Reflux, Osteoarthritis (OA), Pneumonia Additional Past Medical History / Comment(s): Past gallstones-pt states he was very ill and had liver involvement, diverticular disease, arthritis in multiple joints, chronic pain, occasional headaches. History of Any Multi-Drug Resistant Organisms: None Reported Past Surgical History: Cholecystectomy Additional Past Surgical History / Comment(s): colonoscopy Past Anesthesia/Blood Transfusion Reactions: No Reported Reaction Smoking Status: Former smoker - Past Family History Mother Family Medical History: Diabetes Mellitus Additional Family Medical History / Comment(s): diet controlled diabetic Father Family Medical History: Cancer, CVA/TIA, Myocardial Infarction ([place]) Additional Family Medical History / Comment(s): Multiple types of cancer, CVAs, MIs with first [place] in his late 40s or early 50s. Medications and Allergies Home Medications Medication Instructions Recorded Confirmed Type Ibuprofen [Motrin Ib] 400 mg PO Q6H PRN 03/14/19 03/14/19 History Allergies Allergy/AdvReac Type Severity Reaction Status Date / Time Penicillins Allergy Unknown Verified 03/14/19 11:34 Childhood prednisone Allergy Rash/Hives Verified 03/14/19 11:34 Physical Exam Vitals: Vital Signs Temp Pulse Pulse Resp BP BP Pulse Ox 03/15/19 08:00 18 03/15/19 06:40 98.1 F 78 18 111/72 98 03/15/19 03:04 98.5 F 81 18 107/67 97 03/15/19 02:24 18 03/14/19 23:38 18 03/14/19 23:23 98.2 F 72 18 99/62 98 03/14/19 23:19 98.2 F 72 18 99/62 98 03/14/19 20:00 18 03/14/19 19:03 96.9 F L 86 18 119/69 03/14/19 18:44 97.7 F 03/14/19 18:33 96.9 F L 84 16 119/69 98 03/14/19 18:23 98.1 F 90 18 117/66 03/14/19 17:57 97.7 F 92 18 129/71 99 03/14/19 15:00 98.8 F 94 18 130/78 99 03/14/19 12:34 102 H 18 105/72 98 03/14/19 11:19 98.1 F 108 H 20 146/86 99 Intake and Output 03/14/19 03/15/19 03/15/19 22:59 06:59 14:59 Intake Total 310 Balance 310 Intake: Blood Product 310 Rc Pheresis 2 As3 Unit 310 [id number] Other: # Voids 1 general appearance: The patient is alert, oriented, in no acute distress. HET: Head is normocephalic and atraumatic. Pupils are equal and reactive. Oropharynx is clear without lesions. Neck: Supple without lymphadenopathy. Trachea midline. Heart: S1 S2. Regular rate and rhythm. Lungs: No crackles or wheezes are heard. Abdomen: Soft, nontender, nondistended with bowel sounds. No peritoneal signs. No palpable organomegaly or masses. Extremities: Normal skin color and turgor. No cyanosis, rash, ulceration, clubbing, or edema. Radial and pedal pulses are 2/4 bilaterally. Neurological: No focal deficits. Strength and sensation are grossly intact. Results CBC & Chem 7: 03/15/19 05:27 03/14/19 12:29 Labs: Abnormal Lab Results - Last 24 Hours (Table) 03/14/19 03/14/19 03/14/19 Range/Units 12:29 12:29 14:18 RBC 2.23 L (4.30-5.90) m/uL Hgb 7.1 L (13.0-17.5) gm/dL Hct 20.1 L (39.0-53.0) % RDW 15.6 H (11.5-15.5) % BUN 23 H (9-20) mg/dL Total Protein 5.7 L (6.3-8.2) g/dL HDL Cholesterol (40-60) mg/dL Crossmatch See Detail 03/15/19 03/15/19 03/15/19 Range/Units 00:48 05:27 05:27 RBC 2.33 L 2.42 L (4.30-5.90) m/uL Hgb 7.3 L 7.6 L (13.0-17.5) gm/dL Hct 21.3 L 21.9 L (39.0-53.0) % RDW (11.5-15.5) % BUN (9-20) mg/dL Total Protein (6.3-8.2) g/dL HDL Cholesterol 30 L (40-60) mg/dL Crossmatch Assessment and Plan (1) Anemia Narrative/Plan: Symptomatic normocytic anemia component of acute blood loss s/p blood transfusion admission hemoglobin 7.1 previously 14.1 in October 2018 without overt bleeding such as hematemesis hematochezia or melena. FOBT negative. Colonoscopy 1 year ago reported as normal with the exception of colonic diverticulosis. Current Visit: Yes Status: Acute Code(s): D64.9 - ANEMIA, UNSPECIFIED SNOMED Code(s): 352590012 Plan: 1. Protonix 40 mg twice daily. N.p.o. except meds. CBC monitoring. EGD. The electronics computer mechanic has discussed the risks, benefits and alternative therapies for the above-mentioned procedure and for both sedation/analgesia as well as necessary blood product administration, if indicated, as they pertain to this patient. The patient has indicated understanding and acceptance of the risks and procedures discussed. Thank you for this kind referral and the opportunity to participate in the care of your patient. This consultation was discussed with Dr. Odom. The impression and plan of care have been directed as dictated.
[2019-03-15 12:11] LABS: Reticulocyte % 0.3 % (0.5-2.0)
--- NOTE | 2019-03-15 12:50 | P.CRDCN ---
History of Present Illness History of present illness: This is a pleasant 53-year-old male past medical history significant for asthma, gastroesophageal reflux disease and former nicotine dependence. His father had premature coronary artery disease starting in his 50s. Patient denies personal history of coronary artery disease, hypertension, dyslipidemia and diabetes mellitus. He does not follow with a client technical specialist for any reason. We have been asked to see him in consultation secondary to chest discomfort. For the previous 3 weeks he has been experiencing exertional chest discomfort described as a band tightening sensation across his chest. This is also associated with shortness of breath and extreme fatigue. He has a fairly active job where he walks a significant amount throughout the day and he states he gets this discomfort and shortness of breath anytime he walks from building to building. He saw his primary care physician and underwent outpatient lab testing. Hemoglobin was noted to be 7.7. The patient presented to the hospital for evaluation of chest discomfort. On admission his hemoglobin was 7.1. He underwent a transfusion of one unit of packed red blood cells last evening replete hemoglobin this morning is 7.6. The patient is scheduled for an EGD this afternoon. He is seen and examined sitting up in bed in no acute distress. He denies active chest discomfort, shortness of breath, dizziness or palpitations. EKG reveals sinus tachycardia with no acute ST or T wave abnormalities noted hea rt rate 104. Chest x-ray is negative for an acute cardiopulmonary process. Laboratory data reviewed, hemoglobin 7.6, platelets 238, d-dimer 0.26, sodium 138, potassium 4.2, creatinine 0.97, troponin negative 3, LDL 45 and HDL 30. He currently takes no daily cardiac medications. At the time of my exam: CONSTITUTIONAL: Denies fever. Denies chills. EYES: Denies blurred vision. Denies vision changes. Denies eye pain. EARS, NOSE, MOUTH & THROAT: Denies headache. Denies sore throat. Denies ear pain. CARDIOVASCULAR: Denies chest pain. Denies shortness of breath. Denies orthopnea. Denies PND. Denies palpitations. RESPIRATORY: Denies cough. GASTROINTESTINAL: Denies abdominal pain. Denies diarrhea. Denies constipation. Denies nausea. Denies vomiting. MUSCULOSKELETAL: Denies myalgias. INTEGUMENTARY: Denies pruitis. Denies rash. NEUROLOGIC: Denies numbness. Denies tingling. Denies weakness. PSYCHIATRIC: Denies anxiety. Denies depression. ENDOCRINE: Denies fatigue. Denies weight change. Denies polydipsia. Denies polyurina. GENITOURINARY: Denies burning, hematuria or urgency with micturation. HEMATOLOGIC: Denies history of anemia. Denies bleeding. Blood pressure 116/77 heart rate 92 afebrile maintaining oxygen saturation on room air GENERAL: This is a 53-year-old male in no apparent distress at the time of my examination. Generalized pallor noted. HEENT: Head is atraumatic, normocephalic. Pupils are equal, round. Sclerae anicteric. Conjunctivae are clear. Mucous membranes of the mouth are moist. Neck is supple. There is no jugular venous distention. No carotid bruit is heard. LUNGS: Clear to auscultation no wheezes, rales or rhonchi. No chest wall tenderness is noted on palpation or with deep breathing. HEART: Regular rate and rhythm without murmurs, rubs or gallops. S1 and S2 heard. ABDOMEN: Soft, nontender. Bowel sounds are heard. No organomegaly noted. EXTREMITIES: No evidence of peripheral edema and no calf tenderness noted. VASCULAR: Radial and dorsalis pedis pulses palpated, no evidence of clubbing. NEUROLOGIC: Patient is awake, alert and oriented x3. ASSESSMENT Exertional chest pain and shortness of breath clearly related to anemia. An acute coronary event has been ruled out. Family history of premature coronary artery disease PLAN Symptoms of exertional chest pain, shortness of breath and generalized fatigue likely related to profound anemia. Patient denies any history of bleeding or prior history of anemia. He is scheduled to undergo an EGD this afternoon. He would benefit from outpatient stress testing given his family history however this can be performed once anemia has resolved. Echocardiogram has been ordered by the primary care team and will be reviewed. Follow up with Dr. Reyes in the office upon discharge. Thank you kindly for this consultation. Nurse Practitioner note has been reviewed, I agree with a documented findings and plan of care. Patient was seen and examined. Past Medical History Past Medical History: Asthma, GERD/Reflux, Osteoarthritis (OA), Pneumonia Additional Past Medical History / Comment(s): Past gallstones-pt states he was very ill and had liver involvement, diverticular disease, arthritis in multiple joints, chronic pain, occasional headaches. History of Any Multi-Drug Resistant Organisms: None Reported Past Surgical History: Cholecystectomy Additional Past Surgical History / Comment(s): colonoscopy Past Anesthesia/Blood Transfusion Reactions: No Reported Reaction Smoking Status: Former smoker - Past Family History Mother Family Medical History: Diabetes Mellitus Additional Family Medical History / Comment(s): diet controlled diabetic Father Family Medical History: Cancer, CVA/TIA, Myocardial Infarction (LA) Additional Family Medical History / Comment(s): Multiple types of cancer, CVAs, MIs with first LA in his late 40s or early 50s. Medications and Allergies Home Medications Medication Instructions Recorded Confirmed Type Ibuprofen [Motrin Ib] 400 mg PO Q6H PRN 03/14/19 03/14/19 History Allergies Allergy/AdvReac Type Severity Reaction Status Date / Time Penicillins Allergy Unknown Verified 03/14/19 11:34 Childhood prednisone Allergy Rash/Hives Verified 03/14/19 11:34 Physical Exam Vitals: Vital Signs Temp Pulse Pulse Resp BP BP Pulse Ox 03/15/19 11:24 97.4 F L 92 18 116/77 98 03/15/19 08:00 18 03/15/19 06:40 98.1 F 78 18 111/72 98 03/15/19 03:04 98.5 F 81 18 107/67 97 03/15/19 02:24 18 03/14/19 23:38 18 03/14/19 23:23 98.2 F 72 18 99/62 98 03/14/19 23:19 98.2 F 72 18 99/62 98 03/14/19 20:00 18 03/14/19 19:03 96.9 F L 86 18 119/69 03/14/19 18:44 97.7 F 03/14/19 18:33 96.9 F L 84 16 119/69 98 03/14/19 18:23 98.1 F 90 18 117/66 03/14/19 17:57 97.7 F 92 18 129/71 99 03/14/19 15:00 98.8 F 94 18 130/78 99 03/14/19 12:34 102 H 18 105/72 98 Intake and Output 03/14/19 03/15/19 03/15/19 22:59 06:59 14:59 Intake Total 310 Balance 310 Intake: Blood Product 310 Rc Pheresis 2 As3 Unit 310 [id number] Other: # Voids 1 Results 03/15/19 05:27 03/14/19 12:29 Cardiac Enzymes 03/14/19 03/14/19 03/14/19 Range/Units 12:29 12:29 18:05 AST 17 (17-59) U/L Troponin I <0.012 <0.012 (0.000-0.034) ng/mL 03/15/19 Range/Units 00:48 AST (17-59) U/L Troponin I <0.012 (0.000-0.034) ng/mL Coagulation 03/14/19 Range/Units 12: PT 10.5 (9.0-12.0) sec APTT 23.5 (22.0-30.0) sec Lipids 03/15/19 Range/Units 05:27 Triglycerides 59 (<150) mg/dL Cholesterol 87 (<200) mg/dL HDL Cholesterol 30 L (40-60) mg/dL CBC 03/14/19 03/15/19 03/15/19 Range/Units 12: 00:48 05:27 WBC 8.1 8.2 8.3 (3.8-10.6) k/uL RBC 2.23 L 2.33 L 2.42 L (4.30-5.90) m/uL Hgb 7.1 L 7.3 L 7.6 L (13.0-17.5) gm/dL Hct 20.1 L 21.3 L 21.9 L (39.0-53.0) % Plt Count 240 189 238 (150-450) k/uL Comprehensive Metabolic Panel 03/14/19 Range/Units 12:29 Sodium 138 (137-145) mmol/L Potassium 4.2 (3.5-5.1) mmol/L Chloride 105 (98-107) mmol/L Carbon Dioxide 27 (22-30) mmol/L BUN 23 H (9-20) mg/dL Creatinine 0.97 (0.66-1.25) mg/dL Glucose 94 (74-99) mg/dL Calcium 9.2 (8.4-10.2) mg/dL AST 17 (17-59) U/L ALT 28 (21-72) U/L Alkaline Phosphatase 55 (38-126) U/L Total Protein 5.7 L (6.3-8.2) g/dL Albumin 3.7 (3.5-5.0) g/dL Current Medications Generic Name Dose Route Start Last Admin Trade Name Freq PRN Reason Stop Dose Admin Acetaminophen 500 mg 03/14/19 21:43 Tylenol Tab PO Q6HR PRN Fever and/ or Pain Nitroglycerin 0.4 mg 03/14/19 14:02 Nitrostat SUBLINGUAL Q5M PRN Chest Pain Pantoprazole Sodium 40 mg 03/14/19 21:45 03/15/19 08:45 Protonix PO Not Given AC-BID SHAWANDA Intake and Output 03/14/19 03/15/19 03/15/19 22:59 06:59 14:59 Intake Total 310 Balance 310 Intake: Blood Product 310 Rc Pheresis 2 As3 Unit 310 [id number] Other: # Voids 1 03/15/19 05:27 03/14/19 12:29
--- NOTE | 2019-03-15 12:51 | ECHOF ---
Referral Reason:Rule out heart disease MEASUREMENTS -------- HEIGHT: 180.3 cm WEIGHT: 104.3 kg BP: 111/72 RVIDd: 3.2 cm (< 3.3) IVSd: 1.3 cm (0.6 - 1.1) LVIDd: 4.3 cm (3.9 - 5.3) LVPWd: 1.3 cm (0.6 - 1.1) IVSs: 1.8 cm LVIDs: 3.6 cm LVPWs: 1.8 cm LA Diam: 3.5 cm (2.7 - 3.8) LAESV Index (A-L): 25.59 ml/m Ao Diam: 3.2 cm (2.0 - 3.7) AV Cusp: 1.7 cm (1.5 - 2.6) EPSS: 0.5 cm MV E Irwin: 1.00 m/s MV DecT: 167 ms MV A Irwin: 1.00 m/s MV E/A Ratio: 1.00 RAP: 5.00 mmHg RVSP: 40.62 mmHg MV EF SLOPE: 188.63 mm/s (70 - 150) MV EXCURSION: 2.08 cm (> 18.000) FINDINGS -------- Sinus rhythm. The left ventricular size is normal. There is mild concentric left ventricular hypertrophy. Overa ll left ventricular systolic function is normal with, an EF between 60 - 65 %. The right ventricle is normal in size. Left atrium is normal size by volume. The right atrium is normal in size and function. Interatrial and interventricular septum intact. The aortic valve is trileaflet and appears structurally normal. Mild mitral regurgitation is present. Mild tricuspid regurgitation present. There is mild pulmonary hypertension. The right ventricular systolic pressure, as measured by Doppler, is 40.62mmHg. Trace/mild (physiologic) pulmonic regurgitation. The aortic root size is normal. The inferior vena cava was not well visualized. The pericardium is normal. CONCLUSIONS -------- 1. Sinus rhythm. 2. The left ventricular size is normal. 3. There is mild concentric left ventricular hypertrophy. 4. Overall left ventricular systolic function is normal with, an EF between 60 - 65 %. 5. The right ventricle is normal in size. 6. Left atrium is normal size by volume. 7. The right atrium is normal in size and function. 8. Interatrial and interventricular septum intact. 9. The aortic valve is trileaflet and appears structurally normal. 10. Mild mitral regurgitation is present. 11. Mild tricuspid regurgitation present. 12. There is mild pulmonary hypertension. 13. The right ventricular systolic pressure, as measured by Doppler, is 40.62mmHg. 14. Trace/mild (physiologic) pulmonic regurgitation. 15. The aortic root size is normal. 16. The inferior vena cava was not well visualized. 17. The pericardium is normal. HOSPITALITY HOUSEKEEPER: CANDI Stanton
[2019-03-15] MEDS ORDERED: LIDOCAINE 1% INJ 10MG/ML (20 ML MDV) ONE ×2 (14:35)
[2019-03-15] MEDS ORDERED: PROPOFOL 10 MG/ML 20 ML VIAL IV ONE ×2 (14:35)
[2019-03-15] MEDS ORDERED: LACTATED RINGERS 1,000 ML IV ONE (14:35)
--- NOTE | 2019-03-15 14:48 | P.PCN ---
Date of Procedure: 03/15/19 Procedure(s) Performed: BRIEF HISTORY: Patient is a 53-year-old, pleasant, male, admitted hospital with severe symptomatic anemia and hemoglobin of 7.1 g/dL requiring 1 unit of blood transfusion. He denies any GI bleed. The posterior abdominal pain, nausea vomiting. Had a colonoscopy a year ago by Dr. Connolly and according to the patient revealed diverticulosis. Because of the severe symptomatic anemia he scheduled for an upper endoscopy to evaluate further.. PROCEDURE PERFORMED: Esophagogastroduodenoscopy with biopsy PREOPERATIVE DIAGNOSIS: Symptomatic anemia. IV sedation per anesthesia. PROCEDURE: After informed consent was obtained, the patient was brought into the endoscopy unit. IV sedation was administered by Anesthesia under continuous monitoring. Initially the Olympus GIF-140 video endoscope was inserted into the mouth. Esophagus intubated without any difficulty. It was gradually advanced into the stomach and duodenum and carefully examined. The bulb and the second part of the duodenum appeared normal. The scope at this time was withdrawn to the stomach, adequately insufflated with air, and upon careful examination, mucosa of the antrum had scattered erosions and a small 5 mm superficial antral ulcer with no active bleeding. Biopsies were done from this area. The body, cardia and the fundus appeared normal. The scope was then withdrawn into the esophagus. The GE junction was located at 39 cm from the incisors. The esophagus appeared normal. There were no erosions or ulcerations seen and the patient tolerated the procedure well. IMPRESSION: 1. 5 mm superficial antral ulcer in the prepyloric area status post biopsy. 2. Antral Erosive gastritis. RECOMMENDATIONS: The findings of this examination were discussed with the patient as well as his family. He was advised to follow with the biopsy results. He will continue with Protonix 40 mg daily. Diet will be advanced as tolerated. He was advised to avoid NSAIDs..
[2019-03-15 17:31] LABS: Iron Saturation 67.34 (15.00-50.00)
[2019-03-15 17:41] LABS: Folate, Serum 6.6 ng/mL
[2019-03-15] MEDS: CYANOCOBALAMIN 500 MCG TAB PO SCH (19:49)
[2019-03-16 06:58] LABS: HCT 22.8 % (39.0-53.0); MCH 31.9 pg (25.0-35.0); MCHC 35.3 g/dL (31.0-37.0); MCV 90.3 fL (80.0-100.0); Mean Platelet Volume 8.2; Platelet Count 256 k/uL (150-450); RBC 2.53 m/uL (4.30-5.90); RDW 15.3 % (11.5-15.5); WBC 8.2 k/uL (3.8-10.6)
[2019-03-16 07:21] LABS: Eosinophils # (M) 0.16 k/uL (0-0.7); Lymphocytes # (M) 4.18 k/uL (1.0-4.8); Monocytes # (M) 0.33 k/uL (0-1.0); Neutrophils % (M) 43 %; Nucleated Red Blood Cells 0 /100 WBC (0-0); Total Cells Counted 100
[2019-03-16] MEDS: PANTOPRAZOLE 40 MG TABLET PO SCH (08:20)
[2019-03-16] MEDS: CYANOCOBALAMIN 500 MCG TAB PO SCH (08:22)
--- NOTE | 2019-03-16 11:25 | PN ---
PROGRESS NOTE DATE OF SERVICE: 03/16/2019 Patient is a 53-year-old pleasant white male admitted to hospital with severe symptomatic anemia and hemoglobin of 7.3 g/dL requiring a unit of blood transfusion. His hemoglobin today is 8 g/dL. He had an upper endoscopy done yesterday that showed a small antral ulcer and antral erosive gastritis. The patient on Protonix 40 mg daily. He denies any symptoms. No abdominal pain. No nausea, vomiting. PHYSICAL EXAMINATION: On physical examination, he appears comfortable, no apparent distress. Vital signs are stable. Blood pressure 112/82, pulse rate 101, temperature 98.1. HEENT EXAMINATION: Unremarkable. Conjunctivae pink. Sclerae anicteric. Oral cavity, no lesions. NECK: No JVD or lymph node enlargement. CHEST: Clear to auscultation. HEART: Regular rate and rhythm. ABDOMEN: Soft. Bowel sounds are positive. No organomegaly. EXTREMITIES: No pedal edema. SKIN: No rashes. NEUROLOGIC: Alert and oriented x3. No focal deficits. LABS: Labs from today: Hemoglobin 8. IMPRESSION: Severe symptomatic anemia with no active gastrointestinal bleed. Colonoscopy a year ago by Dr. Connolly was negative. Upper endoscopy done by [facility] yesterday showed a small antral ulcer and antral erosive gastritis, which most likely is a source of occult gastrointestinal blood loss, status post 1 unit of blood transfusion. Hemoglobin is 8 g/dL. Patient is doing well. RECOMMENDATIONS: 1. Continue Protonix 40 mg daily. 2. Start iron supplements 1 tab twice daily. 3. CBC every month. 4. Follow up in office in 2 to 3 weeks. 5. Avoid NSAIDs. Thank you for this consultation. MMODL / IJN: [id number] /
[2019-03-16 12:08] VITALS: BP 113/78; PULSE 90; RESP 16; TEMP 97.9
--- NOTE | 2019-03-16 12:57 | P.DS ---
Providers Date of admission: 03/15/19 10:04 Attending physician: Umer Perez Consults: 03/14/19 14:04 Consult Physician Urgent Consulting Provider: Yanni Odom Consult Reason/Comments: Anemia Do you want consulting provider notified?: Yes 03/15/19 10:11 Consult Physician Urgent Consulting Provider: Rishabh Reyes Consult Reason/Comments: chest pain with h/o heart disease of his father Do you want consulting provider notified?: Yes Primary care physician: Waqas Espinal [facility] Course: Diagnoses: -Stomach ulcer. Status post EGD: 5 mm superficial antral ulcer in the prepyloric area status post biopsy -GI bleed secondary to above -Acute blood loss anemia secondary to above -Chest pain, acute coronary syndrome has been ruled out. Template Storage Clerk recommended outpatient stress test -Presyncope, mostly related to his severe anemia. Resolved -Borderline low normal B12, replaced -History of asthma, not an active issue -GERD -Osteoarthritis -History of gallstone disease -Diverticular disease Hospital course: This is a pleasant 53 years old male with past medical history of asthma, GERD, osteoarthritis, gallstone disease. Presents because of his low hemoglobin. Patient follow up with Dr. espinal as his primary care doctor, because he could not get hold of his PCP he went to see Dr. Mark at urgent care for pain in right arm and leg which is resolved now. Workup came back showing low hemoglobin at 7+ and received a call to come to emergency room. Patient does not have any more pain in his right leg or arm anymore. However patient was complaining of from chest pain of one-day duration that is felt like tightness and aching associated with some dyspnea and presyncope which could be related to his low hemoglobin. Currently his chest pain has resolved and is rated as 0/10. No dyspnea. No more dizziness. And he is back to his usual state. Also patient denies abdominal pain, no nausea vomiting, no hematemesis or hemoptysis. No hematuria or blood in stool. No change in his urine or bowel habits. No fever He denies smoking, alcohol or illicit drugs. His father has heart disease in his late 40s home also he had history of lymphoma and leukemia. A shunt has been evaluated by GI and cardiology team. Patient underwent EGD showing 5 mm superficial antral ulcer in the prepyloric area status post biopsy. He is status post one unit of blood transfusion. His hemoglobin is improved up to 8.0. Patient was cleared by stripper printed circuit boards team for discharge. Patient will be discharged on Protonix and iron pills and to avoid NSAIDs and recommended to follow-up with GI team and for biopsy results. Risk of cancer is explained for the patient and he verbalized understanding and acceptance. Template Storage Clerk evaluated the patient as well and recommended sutures status as an outpatient due to his family history Patient was cleared for discharge by both GI and cardiology team Problems and management plan were discussed with the patient and he verbalized understanding and acceptance Patient was found stable and can be discharged home however he needs follow-up as an outpatient. Patient agrees with the appointments and the timing made for him with GI and cartilage team and he states that he will follow-up. Patient also was instructed to follow up with his PCP in one week and he agrees. Sleeve is a provided for the patient upon discharge upon his request. Gen: patient is a AAOx3, no distress CVS: S1-S2, RRR, no murmur Lungs: B/L CTA, no wheezing Abdomen: soft, no distention, no tenderness, positive bowel sounds Extremity: no leg edema or induration Time spent more than 35 minutes Plan - Discharge Summary Discharge Rx Participant: No New Discharge Prescriptions: No Action Ibuprofen [Motrin Ib] 400 mg PO Q6H PRN PRN Reason: Pain Discharge Medication List Ibuprofen [Motrin Ib] 400 mg PO Q6H PRN 03/14/19 [History] Follow up Appointment(s)/Referral(s): Waqas Espinal DO [Primary Care Provider] - 1-2 days (Appointment made for Monday @ 8:20am. ) Rishabh Reyes MD [STAFF PHYSICIAN] - 03/26/19 8:45 am (Appointment made for Monday @ 8:45am.) Yanni Odom MD [STAFF PHYSICIAN] - 04/03/19 9:45 am (Appointment made for Apr.03 @9:45am with Sariah Ceron.)
== END 2019-03-16 13:11 | disposition home or self-care (01) | DRG 378 ==
LOC: EC 11:16 → 1SOBS 14:02 → OBSVTOIN 03-15 10:04
PROVIDERS: ADMIT Hospitalist; ATTEND Hospitalist
PROC: 30233N1 Transfusion of Nonautologous Red Blood Cells into Peripheral Vein, Percutaneous Approach (ICD-10-PCS; 2019-03-14)
PROC: 0DB78ZX Excision of Stomach, Pylorus, Via Natural or Artificial Opening Endoscopic, Diagnostic (ICD-10-PCS; principal; 2019-03-15 07:50)
PROC: 0DB98ZX Excision of Duodenum, Via Natural or Artificial Opening Endoscopic, Diagnostic (ICD-10-PCS; principal; 2019-03-15 07:50)
DX: K29.01 Acute gastritis with bleeding (principal); D62 Acute posthemorrhagic anemia; K57.30 Diverticulosis of large intestine without perforation or abscess without bleeding; K21.9 Gastro-esophageal reflux disease without esophagitis; K29.60 Other gastritis without bleeding; E66.9 Obesity, unspecified; J45.909 Unspecified asthma, uncomplicated; M19.90 Unspecified osteoarthritis, unspecified site; Z68.32 Body mass index [BMI] 32.0-32.9, adult; Z90.49 Acquired absence of other specified parts of digestive tract; Z82.49 Family history of ischemic heart disease and other diseases of the circulatory system; Z87.891 Personal history of nicotine dependence; Z83.3 Family history of diabetes mellitus; Z80.6 Family history of leukemia; Z82.3 Family history of stroke; Z79.899 Other long term (current) drug therapy; Z85.6 Personal history of leukemia; Z85.72 Personal history of non-Hodgkin lymphomas
CPT/HCPCS: 36415; 43239; 71046; 80053; 80061; 82272; 82607; 82728; 82746; 83540; 83550; 83735; 84484; 85025; 85027; 85045; 85379; 85610; 85730; 86850; 86900; 86901; 86920; 87040; 88305; 93005; 93306; 96360; 96361; 99291

== ENCOUNTER 2019-03-27 14:28 | Inpatient (IN) | payer BC ==
[2019-03-27] MEDS ORDERED: SODIUM CHLORIDE 0.9% 1,000 ML IV STA (14:48)
[2019-03-27] MEDS ORDERED: PANTOPRAZOLE 40 MG/10 ML VIAL IVP STA (14:48)
--- NOTE | 2019-03-27 14:55 | ED ---
Recheck HPI - General Chief Complaint: Recheck/Abnormal Lab/Rx Stated Complaint: Low HGB Time Seen by Provider: 03/27/19 14:33 Source: patient, RN notes reviewed, old records reviewed Mode of arrival: wheelchair Limitations: no limitations - History of Present Illness Initial Comments: This is a 53-year-old male the ER for evaluation patient resents today for evaluation of persistent weakness shortness of breath persistent for a few weeks now for him he was admitted to the hospital recently on able hemoglobin was needed to be transfused. At that time the bleeding denies GI system history of colonoscopy showing diverticulosis. He is been treated for ulcers with antacids. Patient denies any other drugs or alcohol. No blood thinners. Denies any change in stools no blood in the stools he is taking iron pills currently. Just feels weak tired fatigued feeling his heart racing MD Complaint: abnormal lab (low hemoglobin) -: unknown Returns Today for: Called Because of Abnormal Lab/Test (Low hemoglobin) Symptoms Since Prior Visit: no new symptoms (Increasing weakness) Context: called for abnormal lab result Associated Symptoms: shortness of breath, malaise - Related Data Home Medications Medication Instructions Recorded Confirmed Acetaminophen Tab [Tylenol Tab] 1,000 mg PO Q6HR PRN 03/27/19 03/27/19 Ferrous Sulfate [Feosol] 325 mg PO HS 03/27/19 03/27/19 Pantoprazole [Protonix] 40 mg PO DAILY 03/27/19 03/27/19 Allergies Allergy/AdvReac Type Severity Reaction Status Date / Time Penicillins Allergy Unknown Verified 03/27/19 14:41 Childhood prednisone Allergy Rash/Hives Verified 03/27/19 14:41 Review of Systems ROS Statement: Those systems with pertinent positive or pertinent negative responses have been documented in the HPI. ROS Other: All systems not noted in ROS Statement are negative. Past Medical History Past Medical History: Asthma, GERD/Reflux, Osteoarthritis (OA), Pneumonia Additional Past Medical History / Comment(s): Past gallstones-pt states he was very ill and had liver involvement, diverticular disease, arthritis in multiple joints, chronic pain, occasional headaches. History of Any Multi-Drug Resistant Organisms: None Reported Past Surgical History: Cholecystectomy Additional Past Surgical History / Comment(s): colonoscopy Past Anesthesia/Blood Transfusion Reactions: No Reported Reaction Past Psychological History: No Psychological Hx Reported Smoking Status: Former smoker Past Alcohol Use History: None Reported Past Drug Use History: None Reported - Past Family History Mother Family Medical History: Diabetes Mellitus Additional Family Medical History / Comment(s): diet controlled diabetic Father Family Medical History: Cancer, CVA/TIA, Myocardial Infarction ([place]) Additional Family Medical History / Comment(s): Multiple types of cancer, CVAs, MIs with first [place] in his late 40s or early 50s. General Exam - General Exam Comments Initial Comments: Pale Limitations: no limitations General appearance: alert, in no apparent distress Head exam: Present: atraumatic, normocephalic, normal inspection Eye exam: Present: normal appearance, PERRL, EOMI. Absent: scleral icterus, conjunctival injection, periorbital swelling ENT exam: Present: normal exam, mucous membranes moist Neck exam: Present: normal inspection. Absent: tenderness, meningismus, lymphadenopathy Respiratory exam: Present: normal lung sounds bilaterally. Absent: respiratory distress, wheezes, rales, rhonchi, stridor Cardiovascular Exam: Present: regular rate, normal rhythm, normal heart sounds. Absent: systolic murmur, diastolic murmur, rubs, gallop, clicks GI/Abdominal exam: Present: soft, normal bowel sounds. Absent: distended, tenderness, guarding, rebound, rigid Extremities exam: Present: normal inspection, full ROM, normal capillary refill. Absent: tenderness, pedal edema, joint swelling, calf tenderness Back exam: Present: normal inspection Neurological exam: Present: alert, oriented X3, CN II-XII intact Psychiatric exam: Present: normal affect, normal mood Skin exam: Present: warm, dry, intact, normal color. Absent: rash Course Vital Signs 03/27/19 14:38 Temperature 98.4 F Pulse Rate 104 H Respiratory 22 Rate Blood Pressure 156/83 O2 Sat by Pulse 99 Oximetry - Reevaluation(s) Reevaluation #1: 03/27/19 14:54 Medical records reviewed including prior ER visit and evaluations Reevaluation #2: 03/27/19 16:21 Patient had prior fecal occult blood testing negative Medical Decision Making - Medical Decision Making 53 male the ER for evaluation significant anemia possibly related to prior history of GI bleed. Patient has been feeling weak and short of breath is awake, will admit for transfusion and further evaluation of anemia - Lab Data Result diagrams: 03/27/19 14:55 03/27/19 14:55 Lab Results 03/27/19 03/27/19 03/27/19 Range/Units 14:55 14:55 14:55 WBC 9.2 (3.8-10.6) k/uL RBC 1.95 L (4.30-5.90) m/uL Hgb 6.2 L* D (13.0-17.5) gm/dL Hct 17.2 L* (39.0-53.0) % MCV 88.4 (80.0-100.0) fL MCH 31.6 (25.0-35.0) pg MCHC 35.7 (31.0-37.0) g/dL RDW 14.9 (11.5-15.5) % Plt Count 301 (150-450) k/uL Neutrophils % (Manual) 31 % Lymphocytes % (Manual) 63 % Monocytes % (Manual) 5 % Eosinophils % (Manual) 1 % Metamyelocytes % 2 % Neutrophils # (Manual) 2.85 (1.3-7.7) k/uL Lymphocytes # (Manual) 5.80 H (1.0-4.8) k/uL Monocytes # (Manual) 0.46 (0-1.0) k/uL Eosinophils # (Manual) 0.09 (0-0.7) k/uL Metamyelocytes # (Man) 0.18 H (0) k/uL Nucleated RBCs 0 (0-0) /100 WBC Polychromasia Present Ovalocytes Present PT 10.6 (9.0-12.0) sec INR 1.0 (<1.2) APTT 24.2 (22.0-30.0) sec Sodium 139 (137-145) mmol/L Potassium 3.8 (3.5-5.1) mmol/L Chloride 106 (98-107) mmol/L Carbon Dioxide 25 (22-30) mmol/L Anion Gap 8 mmol/L BUN 19 (9-20) mg/dL Creatinine 0.91 (0.66-1.25) mg/dL Est GFR (CKD-EPI)AfAm >90 (>60 ml/min/1.73 sqM) Est GFR (CKD-EPI)NonAf >90 (>60 ml/min/1.73 sqM) Glucose 108 H (74-99) mg/dL Calcium 9.1 (8.4-10.2) mg/dL Magnesium 2.0 (1.6-2.3) mg/dL Total Bilirubin 0.3 (0.2-1.3) mg/dL AST 13 L (17-59) U/L ALT 22 (21-72) U/L Alkaline Phosphatase 65 (38-126) U/L Creatine Kinase 40 L (55-170) U/L Troponin I (0.000-0.034) ng/mL Total Protein 5.8 L (6.3-8.2) g/dL Albumin 3.8 (3.5-5.0) g/dL Lipase 35 (23-300) U/L Blood Type Blood Type Recheck Bld Type Recheck Status Antibody Screen Spec Expiration Date 03/27/19 03/27/19 Range/Units 14:55 14:55 WBC (3.8-10.6) k/uL RBC (4.30-5.90) m/uL Hgb (13.0-17.5) gm/dL Hct (39.0-53.0) % MCV (80.0-100.0) fL MCH (25.0-35.0) pg MCHC (31.0-37.0) g/dL RDW (11.5-15.5) % Plt Count (150-450) k/uL Neutrophils % (Manual) % Lymphocytes % (Manual) % Monocytes % (Manual) % Eosinophils % (Manual) % Metamyelocytes % % Neutrophils # (Manual) (1.3-7.7) k/uL Lymphocytes # (Manual) (1.0-4.8) k/uL Monocytes # (Manual) (0-1.0) k/uL Eosinophils # (Manual) (0-0.7) k/uL Metamyelocytes # (Man) (0) k/uL Nucleated RBCs (0-0) /100 WBC Polychromasia Ovalocytes PT (9.0-12.0) sec INR (<1.2) APTT (22.0-30.0) sec Sodium (137-145) mmol/L Potassium (3.5-5.1) mmol/L Chloride (98-107) mmol/L Carbon Dioxide (22-30) mmol/L Anion Gap mmol/L BUN (9-20) mg/dL Creatinine (0.66-1.25) mg/dL Est GFR (CKD-EPI)AfAm (>60 ml/min/1.73 sqM) Est GFR (CKD-EPI)NonAf (>60 ml/min/1.73 sqM) Glucose (74-99) mg/dL Calcium (8.4-10.2) mg/dL Magnesium (1.6-2.3) mg/dL Total Bilirubin (0.2-1.3) mg/dL AST (17-59) U/L ALT (21-72) U/L Alkaline Phosphatase (38-126) U/L Creatine Kinase (55-170) U/L Troponin I <0.012 (0.000-0.034) ng/mL Total Protein (6.3-8.2) g/dL Albumin (3.5-5.0) g/dL Lipase (23-300) U/L Blood Type O Positive Blood Type Recheck O Pos Bld Type Recheck Status No Antibody Screen NEGATIVE Spec Expiration Date 03/30/2019 - 235 Disposition Clinical Impression: Anemia, Weakness Disposition: ADMITTED IP TO THIS [facility] Condition: Fair Is patient prescribed a controlled substance at d/c from ED?: No Referrals: Waqas Espinal DO [Primary Care Provider] - 1-2 days
[2019-03-27 15:18] LABS: Partial Thromboplastin Time 24.2 sec (22.0-30.0); Prothrombin Time 10.6 sec (9.0-12.0)
[2019-03-27 15:21] LABS: MCH 31.6 pg (25.0-35.0); MCHC 35.7 g/dL (31.0-37.0); MCV 88.4 fL (80.0-100.0); Mean Platelet Volume 8.6; Platelet Count 301 k/uL (150-450); RBC 1.95 m/uL (4.30-5.90); RDW 14.9 % (11.5-15.5); WBC 9.2 k/uL (3.8-10.6)
[2019-03-27 15:24] LABS: HCT 17.2 % (39.0-53.0); HGB 6.2 gm/dL (13.0-17.5)
[2019-03-27 15:25] LABS: ALT 22 U/L (21-72); AST 13 U/L (17-59); African American GFR (CKD) >90 (>60 ml/min/1.73 sqM); Albumin 3.8 g/dL (3.5-5.0); Alkaline Phosphatase 65 U/L (38-126); Anion Gap 8 mmol/L; Blood Urea Nitrogen 19 mg/dL (9-20); Calcium 9.1 mg/dL (8.4-10.2); Carbon Dioxide 25 mmol/L (22-30); Chloride 106 mmol/L (98-107); Creatine Kinase 40 U/L (55-170); Glucose 108 mg/dL (74-99); Potassium 3.8 mmol/L (3.5-5.1); Sodium 139 mmol/L (137-145); Total Bilirubin 0.3 mg/dL (0.2-1.3); Total Protein 5.8 g/dL (6.3-8.2)
[2019-03-27 16:10] LABS: Eosinophils # (M) 0.09 k/uL (0-0.7); Metamyelocytes # (M) 0.18 k/uL (0); Metamyelocytes % 2 %; Monocytes # (M) 0.46 k/uL (0-1.0); Neutrophils % (M) 31 %; Nucleated Red Blood Cells 0 /100 WBC (0-0); Total Cells Counted 200
[2019-03-27 16:13] LABS: Ovalocytes Present; Polychromasia Present
[2019-03-27] MEDS ORDERED: ACETAMINOPHEN TAB 500 MG TAB PO PRN (19:40)
[2019-03-27] MEDS ORDERED: FERROUS SULFATE 325 MG TAB PO SCH (21:00)
[2019-03-28 06:57] LABS: HCT 20.4 % (39.0-53.0); HGB 7.2 gm/dL (13.0-17.5); MCH 31.2 pg (25.0-35.0); MCHC 35.3 g/dL (31.0-37.0); MCV 88.5 fL (80.0-100.0); Platelet Count 216 k/uL (150-450); RBC 2.31 m/uL (4.30-5.90); RDW 15.3 % (11.5-15.5); WBC 7.8 k/uL (3.8-10.6)
[2019-03-28 07:16] VITALS: RESP 18
[2019-03-28] MEDS ORDERED: PANTOPRAZOLE 40 MG TABLET PO SCH (07:30)
[2019-03-28 08:19] LABS: Basophils # (M) 0.08 k/uL (0-0.2); Eosinophils # (M) 0.08 k/uL (0-0.7); Lymphocytes # (M) 3.43 k/uL (1.0-4.8); Monocytes # (M) 0.23 k/uL (0-1.0); Neutrophils % (M) 51 %; Nucleated Red Blood Cells 0 /100 WBC (0-0); Total Cells Counted 100
[2019-03-28 08:20] LABS: Poikilocytosis (M) Present
[2019-03-28 13:43] LABS: HCT 21.9 % (39.0-53.0); HGB 7.6 gm/dL (13.0-17.5); MCH 30.8 pg (25.0-35.0); Mean Platelet Volume 7.5; Platelet Count 281 k/uL (150-450); RBC 2.48 m/uL (4.30-5.90); RDW 13.8 % (11.5-15.5); WBC 9.1 k/uL (3.8-10.6)
[2019-03-28 14:44] LABS: Eosinophils # (M) 0.09 k/uL (0-0.7); Lymphocytes # (M) 5.19 k/uL (1.0-4.8); Monocytes # (M) 0.46 k/uL (0-1.0); Neutrophils % (M) 37 %; Nucleated Red Blood Cells 0 /100 WBC (0-0); Total Cells Counted 100
[2019-03-28 14:45] LABS: Poikilocytosis (M) Present
[2019-03-28 15:09] VITALS: BP 117/73; PULSE 92; TEMP 98.9
--- NOTE | 2019-03-28 16:09 | P.HPIM ---
History of Present Illness H&P Date: 03/28/19 Chief Complaint: Low hemoglobin History of presenting complaint: This is a pleasant 53-year-old patient of Dr. Espinal. Chronic stable medical conditions include GERD, arthralgias, diverticulosis. Patient is urine in the hospital from March 14 through March 16. He then presented feeling weak and tired. Hemoglobin was 7.1. He received a unit of blood. Hemoglobin before discharge was 8. Did undergo EGD by Dr. Cristhian Odom. Found to have 5 mm superficial antral ulcer in the prepyloric area and antral erosive gastritis. Patient having taking NSAIDs. Which she discontinued. Was discharged on PPIs. Patient was sent in when his PCP to the blood work and follow hemoglobin to be 6.2. Patient is given 2 units of blood. Does feel tired with activity. No di zziness no lightheadedness. Has been having intermittent dark stools. Admitted for the same. No Abdominal pain. Review of systems: GEN.: Tired with activity EYES: None HEENT: None NECK: None RESPIRATORY: None CARDIOVASCULAR: None GASTROINTESTINAL: None GENITOURINARY: None MUSCULOSKELETAL: Achiness in the joints LYMPHATICS: None HEMATOLOGICAL: None PSYCHIATRY: None NEUROLOGICAL: None Social history: , smoked off and on for about 28 years, stopped in 2010. 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 No alcohol. Family history: Diabetes Physical examination: VITAL SIGNS: 98.4, 104, 22, 11 2/64, 99% room air GENERAL: BMI 30.7, sitting up in bed, comfortable. EYES: Pupils equal. Conjunctiva pale. HEENT: External appearance of nose and ears normal, oral cavity grossly normal. NECK: JVD not raised; masses not palpable. HEART: First and second heart sounds are normal; no edema. LUNGS: Respiratory rate normal; clear to auscultation. ABDOMEN: Soft, nontender, liver spleen not palpable, no masses palpable. PSYCH: Alert and oriented x3; mood and affect normal. NEUROLOGICAL: Cranial nerves grossly intact; no facial asymmetry, power and sensation grossly intact. LYMPHATICS: No lymph nodes palpable in the axilla and neck INVESTIGATIONS, reviewed in the clinical context: Hemoglobin 6.2 on admission. This morning 7.6. It was 8 when he was discharged 2 weeks ago. Assessment: -This is a patient who presented recently with acute GI bleed taking NSAIDs EGD and found antral ulcer and patient has received unit of blood on that admission. Now again presents with symptomatic anemia, receiving 2 units of blood. -Obesity BMI 30.7 -GERD -Chronic arthralgias -Colonic diverticulosis -Gastric ulcer and antral erosive gastritis from recent EGD Plan: Patient has received 2 units of blood. Feels better. GI was consulted. Care was discussed with the patient. Encouraged to be out of bed. Patient may need a small bowel capsule study. Past Medical History Past Medical History: Asthma, GERD/Reflux, Osteoarthritis (OA), Pneumonia Additional Past Medical History / Comment(s): Past gallstones-pt states he was very ill and had liver involvement, diverticular disease, arthritis in multiple joints, chronic pain, occasional headaches. 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 He is independent. Smoking Status: Never smoker Past Alcohol Use History: None Reported Additional Past Alcohol Use History / Comment(s): Pt started smoking as a teen and quit in 2010 Past Drug Use History: None Reported - Past Family History Mother Family Medical History: Diabetes Mellitus Additional Family Medical History / Comment(s): diet controlled diabetic Father Family Medical History: Cancer, CVA/TIA, Myocardial Infarction ([place]) Additional Family Medical History / Comment(s): Multiple types of cancer, CVAs, MIs with first [place] in his late 40s or early 50s. Medications and Allergies Home Medications Medication Instructions Recorded Confirmed Type Acetaminophen Tab [Tylenol Tab] 1,000 mg PO Q6HR PRN 03/27/19 03/27/19 History Ferrous Sulfate [Feosol] 325 mg PO HS 03/27/19 03/27/19 History Pantoprazole [Protonix] 40 mg PO DAILY 03/27/19 03/27/19 History Allergies Allergy/AdvReac Type Severity Reaction Status Date / Time ibuprofen Allergy Unknown Verified 03/28/19 02:46 Penicillins Allergy Unknown Verified 03/27/19 14:41 Childhood prednisone Allergy Rash/Hives Verified 03/27/19 14:41 shellfish derived [Shellfish] Allergy Unknown Verified 03/28/19 02:46 Physical Exam Vitals: Vital Signs Temp Pulse Pulse Resp BP BP Pulse Ox 03/28/19 06:44 98.6 F 77 18 135/73 98 03/28/19 04:00 14 03/28/19 01:16 98.6 F 78 14 111/70 98 03/28/19 00:06 98.5 F 80 17 112/70 98 03/27/19 23:58 98.5 F 80 17 112/72 97 03/27/19 21:24 98.0 F 84 16 102/64 98 03/27/19 20:54 98.3 F 85 16 107/66 99 03/27/19 20:44 98.3 F 93 17 112/70 98 03/27/19 20:19 98.1 F 90 17 128/76 97 03/27/19 19:17 16 03/27/19 18:43 98.7 F 87 18 117/73 100 03/27/19 17:53 98.3 F 94 18 113/63 03/27/19 17:43 98.3 F 94 18 119/73 03/27/19 17:40 98.3 F 102 H 18 116/71 03/27/19 16:57 98.5 F 96 16 112/64 99 03/27/19 14:38 98.4 F 104 H 22 156/83 99 Intake and Output 03/27/19 03/28/19 03/28/19 22:59 06:59 14:59 Intake Total 310 2130 358 Balance 310 2130 358 Intake: Intake, IV Titration 1200 Amount Sodium Chloride 0.9% 1, 1200 000 ml @ 100 mls/hr IV . Q10H STA Rx#:[id number] Oral 358 Blood Product 310 930 Rc As-1 Unit 310 [id number] Rc As-1 Unit 0 310 [id number] Other: Voiding Method Toilet Toilet # Voids 1 Results CBC & Chem 7: 03/28/19 13:05 03/27/19 14:55 Labs: Abnormal Lab Results - Last 24 Hours (Table) 03/27/19 03/27/19 03/27/19 Range/Units 14:55 14:55 14:55 RBC 1.95 L (4.30-5.90) m/uL Hgb 6.2 L* D (13.0-17.5) gm/dL Hct 17.2 L* (39.0-53.0) % Lymphocytes # (Manual) 5.80 H (1.0-4.8) k/uL Metamyelocytes # (Man) 0.18 H (0) k/uL Glucose 108 H (74-99) mg/dL AST 13 L (17-59) U/L Creatine Kinase 40 L (55-170) U/L Total Protein 5.8 L (6.3-8.2) g/dL Crossmatch See Detail 03/28/19 Range/Units 06:42 RBC 2.31 L (4.30-5.90) m/uL Hgb 7.2 L (13.0-17.5) gm/dL Hct 20.4 L (39.0-53.0) % Lymphocytes # (Manual) (1.0-4.8) k/uL Metamyelocytes # (Man) (0) k/uL Glucose (74-99) mg/dL AST (17-59) U/L Creatine Kinase (55-170) U/L Total Protein (6.3-8.2) g/dL Crossmatch Thrombosis Risk Factor Assmnt - Choose All That Apply Each Factor Represents 1 point: Age 41-60 years Thrombosis Risk Factor Assessment Total Risk Factor Score: 1 Thrombosis Risk Factor Assessment Level: Low Risk
--- NOTE | 2019-03-28 21:58 | P.DS ---
Providers Date of admission: 03/27/19 16:20 Expected date of discharge: 03/28/19 Attending physician: Umer Perez Consults: 03/27/19 16:19 Consult Physician Routine Consulting Provider: Stu Rosas Consult Reason/Comments: anemia Do you want consulting provider notified?: Yes [facility] Course: Chief Complaint: Low hemoglobin Hospital course: This is a pleasant 53-year-old patient of Dr. Espinal. Chronic stable medical conditions include GERD, arthralgias, diverticulosis. Patient is urine in the hospital from March 14 through March 16. He then presented feeling weak and tired. Hemoglobin was 7.1. He received a unit of blood. Hemoglobin before discharge was 8. Did undergo EGD by Dr. Cristhian Odom. Found to have 5 mm superficial antral ulcer in the prepyloric area and antral erosive gastritis. Patient having taking NSAIDs. Which she discontinued. Was discharged on PPIs. Patient was sent in when his PCP to the blood work and follow hemoglobin to be 6.2. Patient is given 2 units of blood. Does feel tired with activity. No dizziness no lightheadedness. Has been having intermittent dark stools. Admitted for the same. No Abdominal pain. Patient did receive 2 units of blood. Seen by Dr. Ortiz from GI earlier today. Patient okay to be discharged. No further workup needed. Hemoglobin was 7.6 today Consultation: Dr. Ortiz from GI Physical examination: VITAL SIGNS: 98.9, 92, 18, 1 07/09/1970, 99% room air GENERAL: BMI 30.7, tingling bed, comfortable. EYES: Pupils equal. Conjunctiva pale. HEENT: External appearance of nose and ears normal, oral cavity grossly normal. NECK: JVD not raised; masses not palpable. HEART: First and second heart sounds are normal; no edema. LUNGS: Respiratory rate normal; clear to auscultation. ABDOMEN: Soft, nontender, liver spleen not palpable, no masses palpable. PSYCH: Alert and oriented x3; mood and affect normal. NEUROLOGICAL: Cranial nerves grossly intact; no facial asymmetry, power and sensation grossly intact. LYMPHATICS: No lymph nodes palpable in the axilla and neck INVESTIGATIONS, reviewed in the clinical context: Hemoglobin 6.2 on admission. This morning 7.6. It was 8 when he was discharged 2 weeks ago. Discharge diagnosis: -This is a patient who presented recently with acute GI bleed taking NSAIDs EGD and found antral ulcer and patient has received unit of blood on that admission. Now again presents with symptomatic anemia, hemoglobin 6.2, felt to be from his peptic ulcer. receiving 2 units of blood. -Obesity BMI 30.7 -GERD -Chronic arthralgias -Colonic diverticulosis -Gastric ulcer and antral erosive gastritis from recent EGD Disposition: Home Patient Condition at Discharge: Stable Plan - Discharge Summary Discharge Rx Participant: Yes New Discharge Prescriptions: Continue Pantoprazole [Protonix] 40 mg PO DAILY Ferrous Sulfate [Iron (65 MG Elemental)] 325 mg PO HS Acetaminophen Tab [Tylenol] 1,000 mg PO Q6HR PRN PRN Reason: Pain Discharge Medication List Acetaminophen Tab [Tylenol] 1,000 mg PO Q6HR PRN 03/27/19 [History] Ferrous Sulfate [Iron (65 MG Elemental)] 325 mg PO HS 03/27/19 [History] Pantoprazole [Protonix] 40 mg PO DAILY 03/27/19 [History] Follow up Appointment(s)/Referral(s): Waqas Espinal DO [Primary Care Provider] - 1-2 days Stu Rosas MD [STAFF PHYSICIAN] - 10 Days Activity/Diet/Wound Care/Special Instructions: cbc-5 days Discharge Disposition: HOME SELF-CARE
--- NOTE | 2019-03-29 11:22 | CDI ---
Documentation Clarification Form Date: 03/29/19 From: Ashley Mosher Phone: If questions call Lola Murillo @ [phone], Hours-8:30 am & 5 pm M- F Admit Date: 03/27/2019 4:20:00 PM Patient Name: Waqas Torres Visit Number: [id number] Discharge Date: 03/28/2019 6:14:00 PM ATTENTION: The Clinical Documentation Specialists (CDI) and [facility] Coding Staff appreciate your assistance in clarifying documentation. Please respond to the clarification below the line at the bottom and electronically sign. The CDI & [facility] Coding staff will review the response and follow-up if needed. Please note: Queries are made part of the Legal Health Record. If you have any questions, please contact the author of this message via ITS. Dr. Umer Perez A diagnosis of anemia lacks specificity to accurately reflect your patients severity of condition and clarification is needed. History/Risk Factors: recently identified superficial antral ulcer and antral erosive gastritis possiblly due to NSAID's Clinical indicators: Hemoglobin: 6.2 Hematocrit: 17.2 Treatment: 2 units of PRBCs transfused, iron, monitoring labs, IV Protonix In order to capture the severity of condition, please clarify the type of anemia and etiology if known: Acute blood loss anemia Acute on chronic blood loss anemia Chronic blood loss anemia Unable to determine Other, please specify Acute blood loss anemia secondary to peptic ulcer disease MTDD
== END 2019-03-28 18:14 | disposition home or self-care (01) | DRG 812 ==
LOC: EC 14:28 → 4SSUR 16:20
PROVIDERS: ADMIT Hospitalist; ATTEND Hospitalist
PROC: 30233N1 Transfusion of Nonautologous Red Blood Cells into Peripheral Vein, Percutaneous Approach (ICD-10-PCS; principal; 2019-03-27)
DX: D62 Acute posthemorrhagic anemia (principal); K25.9 Gastric ulcer, unspecified as acute or chronic, without hemorrhage or perforation; K29.60 Other gastritis without bleeding; K21.9 Gastro-esophageal reflux disease without esophagitis; K57.30 Diverticulosis of large intestine without perforation or abscess without bleeding; J45.909 Unspecified asthma, uncomplicated; M19.90 Unspecified osteoarthritis, unspecified site; G89.29 Other chronic pain; E66.9 Obesity, unspecified; Z68.30 Body mass index [BMI] 30.0-30.9, adult; Z87.891 Personal history of nicotine dependence; Z90.49 Acquired absence of other specified parts of digestive tract; Z83.3 Family history of diabetes mellitus; Z82.49 Family history of ischemic heart disease and other diseases of the circulatory system; Z82.3 Family history of stroke; Z80.9 Family history of malignant neoplasm, unspecified; Z79.899 Other long term (current) drug therapy; Z87.01 Personal history of pneumonia (recurrent); Z88.6 Allergy status to analgesic agent; Z88.0 Allergy status to penicillin; Z91.013 Allergy to seafood; Z88.8 Allergy status to other drugs, medicaments and biological substances
CPT/HCPCS: 36415; 80053; 82272; 82550; 83690; 83735; 84484; 85025; 85610; 85730; 86850; 86900; 86901; 86920; 96361; 96374; 99285

== ENCOUNTER → 2019-04-03 | Outpatient (CLI) | payer BC ==
[2019-04-03 12:05] LABS: HCT 21.5 % (39.0-53.0); MCH 29.9 pg (25.0-35.0); MCHC 32.7 g/dL (31.0-37.0); MCV 91.3 fL (80.0-100.0); Mean Platelet Volume 8.3; Platelet Count 295 k/uL (150-450); RBC 2.35 m/uL (4.30-5.90); RDW 13.4 % (11.5-15.5)
[2019-04-03 13:01] LABS: Neutrophils % (M) 43 %; Nucleated Red Blood Cells 0 /100 WBC (0-0); Total Cells Counted 100
[2019-04-03 18:36] LABS: Iron Saturation 88.79 (15.00-50.00)
[2019-04-03 21:25] LABS: Ferritin 428.3 ng/mL (22.0-322.0)
== END | disposition home or self-care (01) ==
LOC: LABWHC1 10:50
PROVIDERS: ATTEND Nurse Practitioner
DX: D64.9 Anemia, unspecified (principal)
CPT/HCPCS: 36415; 82728; 83540; 83550; 85025

== ENCOUNTER 2019-04-05 10:18 | Inpatient (IN) | payer BC ==
--- NOTE | 2019-04-05 11:06 | ED ---
General Adult HPI - General Chief complaint: Recheck/Abnormal Lab/Rx Stated complaint: Abnormal Labs Time Seen by Provider: 04/05/19 10:31 Source: patient, RN notes reviewed Mode of arrival: ambulatory Limitations: no limitations - History of Present Illness Initial comments: This a 53-year-old male presents emergency Department sent in by GI physician with chief complaint of anemia. Patient's had this recurrent anemic issue with no acute findings. Patient states that he initially was told this was from a small ulcer in his stomach though that there is no active bleeding at this time and his stool has been negative for blood. Patient states that his hemoglobin has trended down he's had 2 prior transfusions. Patient states symptoms 106.6. He does admit that he having some symptoms including dizziness, shortness of breath. Patient is currently taking iron tablets. He denies chest pain, palpitations, melena, hematochezia, hematemesis, hematuria - Related Data Home Medications Medication Instructions Recorded Confirmed Acetaminophen Tab [Tylenol] 1,000 mg PO Q6HR PRN 03/27/19 03/27/19 Ferrous Sulfate [Iron (65 MG 325 mg PO HS 03/27/19 03/27/19 Elemental)] Pantoprazole [Protonix] 40 mg PO DAILY 03/27/19 03/27/19 Allergies Allergy/AdvReac Type Severity Reaction Status Date / Time ibuprofen Allergy Unknown Verified 04/05/19 10:24 Penicillins Allergy Unknown Verified 04/05/19 10:24 Childhood prednisone Allergy Rash/Hives Verified 04/05/19 10:24 shellfish derived [Shellfish] Allergy Unknown Verified 04/05/19 10:24 Review of Systems ROS Statement: Those systems with pertinent positive or pertinent negative responses have been documented in the HPI. ROS Other: All systems not noted in ROS Statement are negative. Past Medical History Past Medical History: Asthma, GERD/Reflux, Osteoarthritis (OA), Pneumonia Additional Past Medical History / Comment(s): Past gallstones-pt states he was very ill and had liver involvement, diverticular disease, arthritis in multiple joints, chronic pain, occasional headaches. anemia History of Any Multi-Drug Resistant Organisms: None Reported Past Surgical History: Cholecystectomy Additional Past Surgical History / Comment(s): colonoscopy Past Anesthesia/Blood Transfusion Reactions: No Reported Reaction Past Psychological History: No Psychological Hx Reported Smoking Status: Never smoker Past Alcohol Use History: None Reported Past Drug Use History: None Reported - Past Family History Mother Family Medical History: Diabetes Mellitus Additional Family Medical History / Comment(s): diet controlled diabetic Father Family Medical History: Cancer, CVA/TIA, Myocardial Infarction ([place]) Additional Family Medical History / Comment(s): Multiple types of cancer, CVAs, MIs with first [place] in his late 40s or early 50s. General Exam Limitations: no limitations General appearance: alert, in no apparent distress Head exam: Present: atraumatic, normocephalic, normal inspection Eye exam: Present: normal appearance, PERRL, EOMI. Absent: scleral icterus, conjunctival injection, periorbital swelling ENT exam: Present: normal exam, normal oropharynx, mucous membranes moist Neck exam: Present: normal inspection, full ROM. Absent: tenderness, meningismus, lymphadenopathy Respiratory exam: Present: normal lung sounds bilaterally. Absent: respiratory distress, wheezes, rales, rhonchi, stridor Cardiovascular Exam: Present: regular rate, normal rhythm, normal heart sounds. Absent: systolic murmur, diastolic murmur, rubs, gallop, clicks GI/Abdominal exam: Present: soft, normal bowel sounds. Absent: distended, tenderness, guarding, rebound, rigid Course Vital Signs 04/05/19 10:24 Temperature 98 F Pulse Rate 82 Respiratory 16 Rate Blood Pressure 114/66 O2 Sat by Pulse 100 Oximetry Medical Decision Making - Medical Decision Making 53-year-old male presented for anemia sent over by GI physician. Patient will be admitted for blood transfusion, hematology/oncology consult. - Lab Data Result diagrams: 04/05/19 10:40 04/05/19 10:40 Lab Results 04/05/19 04/05/19 04/05/19 Range/Units 10:40 10:40 10:40 WBC 8.6 (3.8-10.6) k/uL RBC 2.19 L (4.30-5.90) m/uL Hgb 6.5 L* (13.0-17.5) gm/dL Hct 20.0 L (39.0-53.0) % MCV 91.2 (80.0-100.0) fL MCH 29.7 (25.0-35.0) pg MCHC 32.6 (31.0-37.0) g/dL RDW 13.2 (11.5-15.5) % Plt Count 302 (150-450) k/uL PT (9.0-12.0) sec INR (<1.2) APTT (22.0-30.0) sec Sodium 138 (137-145) mmol/L Potassium 4.4 (3.5-5.1) mmol/L Chloride 103 (98-107) mmol/L Carbon Dioxide 26 (22-30) mmol/L Anion Gap 9 mmol/L BUN 15 (9-20) mg/dL Creatinine 0.89 (0.66-1.25) mg/dL Est GFR (CKD-EPI)AfAm >90 (>60 ml/min/1.73 sqM) Est GFR (CKD-EPI)NonAf >90 (>60 ml/min/1.73 sqM) Glucose 123 H (74-99) mg/dL Calcium 9.1 (8.4-10.2) mg/dL Blood Type O Positive Blood Type Recheck O Pos Bld Type Recheck Status No Antibody Screen NEGATIVE Spec Expiration Date 04/08/2019 - 233904/05/19 Range/Units 10:40 WBC (3.8-10.6) k/uL RBC (4.30-5.90) m/uL Hgb (13.0-17.5) gm/dL Hct (39.0-53.0) % MCV (80.0-100.0) fL MCH (25.0-35.0) pg MCHC (31.0-37.0) g/dL RDW (11.5-15.5) % Plt Count (150-450) k/uL PT 10.4 (9.0-12.0) sec INR 1.0 (<1.2) APTT 24.6 (22.0-30.0) sec Sodium (137-145) mmol/L Potassium (3.5-5.1) mmol/L Chloride (98-107) mmol/L Carbon Dioxide (22-30) mmol/L Anion Gap mmol/L BUN (9-20) mg/dL Creatinine (0.66-1.25) mg/dL Est GFR (CKD-EPI)AfAm (>60 ml/min/1.73 sqM) Est GFR (CKD-EPI)NonAf (>60 ml/min/1.73 sqM) Glucose (74-99) mg/dL Calcium (8.4-10.2) mg/dL Blood Type Blood Type Recheck Bld Type Recheck Status Antibody Screen Spec Expiration Date Disposition Clinical Impression: Symptomatic anemia Disposition: ADMITTED IP TO THIS HOSP Condition: Fair Referrals: Waqas Espinal DO [Primary Care Provider] - 1-2 days
[2019-04-05 11:10] LABS: MCH 29.7 pg (25.0-35.0); MCHC 32.6 g/dL (31.0-37.0); MCV 91.2 fL (80.0-100.0); Mean Platelet Volume 8.3; Platelet Count 302 k/uL (150-450); RBC 2.19 m/uL (4.30-5.90); RDW 13.2 % (11.5-15.5); WBC 8.6 k/uL (3.8-10.6)
[2019-04-05 11:12] LABS: HGB 6.5 gm/dL (13.0-17.5)
[2019-04-05 11:13] LABS: African American GFR (CKD) >90 (>60 ml/min/1.73 sqM); Anion Gap 9 mmol/L; Blood Urea Nitrogen 15 mg/dL (9-20); Calcium 9.1 mg/dL (8.4-10.2); Carbon Dioxide 26 mmol/L (22-30); Chloride 103 mmol/L (98-107); Glucose 123 mg/dL (74-99); Potassium 4.4 mmol/L (3.5-5.1); Sodium 138 mmol/L (137-145)
[2019-04-05 11:15] LABS: Partial Thromboplastin Time 24.6 sec (22.0-30.0); Prothrombin Time 10.4 sec (9.0-12.0)
[2019-04-05] MEDS ORDERED: ACETAMINOPHEN TAB 325 MG TAB PO PRN (11:45)
[2019-04-05] MEDS ORDERED: NALOXONE 0.4 MG/ML 1 ML VIAL IV PRN (11:45)
[2019-04-05] MEDS ORDERED: ONDANSETRON 4 MG/2 ML VIAL IVP PRN (11:45)
[2019-04-05 11:54] LABS: Eosinophils # (M) 0.52 k/uL (0-0.7); Lymphocytes # (M) 4.82 k/uL (1.0-4.8); Monocytes # (M) 0.26 k/uL (0-1.0); Neutrophils % (M) 35 %; Nucleated Red Blood Cells 0 /100 WBC (0-0); Total Cells Counted 100
[2019-04-05] MEDS: PANTOPRAZOLE 40 MG/10 ML VIAL IV SCH (20:17)
[2019-04-06] MEDS: PANTOPRAZOLE 40 MG/10 ML VIAL IV SCH ×2 (09:06→21:36)
[2019-04-06 09:32] LABS: HCT 22.7 % (39.0-53.0); HGB 7.1 gm/dL (13.0-17.5); MCH 28.9 pg (25.0-35.0); MCHC 31.2 g/dL (31.0-37.0); MCV 92.6 fL (80.0-100.0); Mean Platelet Volume 9.8; Platelet Count 236 k/uL (150-450); RBC 2.45 m/uL (4.30-5.90); RDW 13.5 % (11.5-15.5); WBC 8.1 k/uL (3.8-10.6)
[2019-04-06 09:42] LABS: ALT 23 U/L (21-72); AST 13 U/L (17-59); African American GFR (CKD) >90 (>60 ml/min/1.73 sqM); Albumin 3.7 g/dL (3.5-5.0); Alkaline Phosphatase 50 U/L (38-126); Anion Gap 6 mmol/L; Blood Urea Nitrogen 17 mg/dL (9-20); Calcium 9.1 mg/dL (8.4-10.2); Carbon Dioxide 27 mmol/L (22-30); Chloride 108 mmol/L (98-107); Glucose 96 mg/dL (74-99); Potassium 4.8 mmol/L (3.5-5.1); Sodium 141 mmol/L (137-145); Total Bilirubin 0.6 mg/dL (0.2-1.3); Total Protein 5.8 g/dL (6.3-8.2)
[2019-04-06 10:49] LABS: Eosinophils # (M) 0.41 k/uL (0-0.7); Lymphocytes # (M) 4.29 k/uL (1.0-4.8); Monocytes # (M) 0.65 k/uL (0-1.0); Myelocytes # (M) 0.08 k/uL (0); Myelocytes % 1 %; Neutrophils % (M) 34 %; Nucleated Red Blood Cells 0 /100 WBC (0-0); Total Cells Counted 200
[2019-04-06 10:50] LABS: Poikilocytosis (M) Present
--- NOTE | 2019-04-06 11:37 | P.CONS ---
History of Present Illness - Reason for Consult Consult date: 04/05/19 Anemia Requesting physician: Umer Perez - Chief Complaint Anemia - History of Present Illness 53-year-old male with recent admission in early March for anemia, and other medical problems including osteoarthritis, GERD, diverticular disease who presented to the hospital for evaluation of anemia. The patient previously underwent colonoscopy approximately 1 year ago with reports from the patient. Findings of diverticulosis and was seen for EGD on 03/15/2019 when he was found to have gastritis and antral ulcer. The patient has remained symptomatic despite of PPI therapy and iron supplementation. He reports frequent shortness of breath. Outpatient laboratory draw was significant for persistent anemia. He denies any change in bowel habits, blood per rectum, although bowel movements have been darker since starting iron supplementation. No NSAID use reported since findings of ulcer in March. Review of Systems REVIEW OF SYSTEMS: CONSTITUTIONAL: Denies any fevers, chills, weight change or fatigue. CARDIOVASCULAR: Denies any chest pain, palpitations high or low blood pressures RESPIRATORY: Denies any hemoptysis or cough but does report shortness of breath worse with exertion. GENITOURINARY: No dysuria or hematuria. MUSCULOSKELETAL: No weakness reported. SKIN: Denies any new rashes or lesions, jaundice or pallor. PSYCHIATRIC: Denies any depression or anxiety. NEUROLOGY: Denies headache, denies any new focal deficits. EARS/NOSE/THROAT: No recent hearing change, congestion, nasal discharge or sore throat. EYES: No pain in eyes, discharge or change in vision. GASTROINTESTINAL: As per HPI. Past Medical History Past Medical History: Asthma, GERD/Reflux, Osteoarthritis (OA), Pneumonia Additional Past Medical History / Comment(s): Recurrent anemia, small stomach ulcer, negative stool for OBs, past gallstones-pt states he was very ill and had liver involvement, diverticular disease, arthritis in multiple joints, chronic pain, occasional headaches. History of Any Multi-Drug Resistant Organisms: None Reported Past Surgical History: Cholecystectomy Additional Past Surgical History / Comment(s): EGD, colonoscopy Past Anesthesia/Blood Transfusion Reactions: No Reported Reaction Smoking Status: Former smoker - Past Family History Mother Family Medical History: Diabetes Mellitus Additional Family Medical History / Comment(s): diet controlled diabetic Father Family Medical History: Cancer, CVA/TIA, Myocardial Infarction ([place]) Additional Family Medical History / Comment(s): Multiple types of cancer, CVAs, MIs with first [place] in his late 40s or early 50s. Medications and Allergies Home Medications Medication Instructions Recorded Confirmed Type Acetaminophen Tab [Tylenol] 1,000 mg PO Q6HR PRN 03/27/19 04/05/19 History Ferrous Sulfate [Iron (65 MG 325 mg PO HS 03/27/19 04/05/19 History Elemental)] Pantoprazole [Protonix] 40 mg PO DAILY 03/27/19 04/05/19 History Allergies Allergy/AdvReac Type Severity Reaction Status Date / Time ibuprofen Allergy Unknown Verified 04/05/19 11:52 Penicillins Allergy Unknown Verified 04/05/19 11:52 Childhood prednisone Allergy Rash/Hives Verified 04/05/19 11:52 shellfish derived [Shellfish] Allergy Unknown Verified 04/05/19 11:52 Physical Exam Vitals: Vital Signs Temp Pulse Pulse Resp BP BP Pulse Ox 04/06/19 05:00 97.7 F 85 18 102/67 100 04/05/19 21:00 98.1 F 78 18 103/58 97 04/05/19 16:38 97.8 F 79 14 120/56 98 04/05/19 15:15 98.3 F 79 14 117/70 100 04/05/19 14:45 97.6 F 77 14 105/67 100 04/05/19 14:35 97.8 F 72 12 115/78 100 04/05/19 13:39 97.5 F L 75 14 114/72 99 04/05/19 12:34 89 18 119/65 98 Intake and Output 04/05/19 04/06/19 04/06/19 22:59 06:59 14:59 Intake Total 310 Balance 310 Intake: Blood Product 310 Rc Irr As1 Unit 310 [id number] Other: # Voids 2 1 On physical examination, patient appears comfortable in no apparent distress. HEAD: Normocephalic, atraumatic. EYES: No scleral icterus. No conjunctival injection. MOUTH: No lesions, tongue midline. NECK: Trachea midline, no gross abnormalities. CHEST: Clear to auscultation with no wheezing or rhonchi appreciated. HEART: Regular rate and rhythm. ABDOMEN: Soft, obese. Bowel sounds are positive. No organomegaly. No guarding or rigidity. EXTREMITIES: No pedal edema. SKIN: No rashes, no jaundice. NEUROLOGIC: Alert and oriented x3. No focal deficits. Results CBC & Chem 7: 04/06/19 09:22 04/06/19 09:24 Labs: Abnormal Lab Results - Last 24 Hours (Table) 04/05/19 04/05/19 04/06/19 Range/Units 10:40 10:40 09:22 RBC 2.45 L (4.30-5.90) m/uL Hgb 7.1 L (13.0-17.5) gm/dL Hct 22.7 L (39.0-53.0) % Lymphocytes # (Manual) 4.82 H (1.0-4.8) k/uL Myelocytes # (Manual) 0.08 H (0) k/uL Chloride (98-107) mmol/L AST (17-59) U/L Total Protein (6.3-8.2) g/dL Crossmatch See Detail 04/06/19 Range/Units 09:24 RBC (4.30-5.90) m/uL Hgb (13.0-17.5) gm/dL Hct (39.0-53.0) % Lymphocytes # (Manual) (1.0-4.8) k/uL Myelocytes # (Manual) (0) k/uL Chloride 108 H (98-107) mmol/L AST 13 L (17-59) U/L Total Protein 5.8 L (6.3-8.2) g/dL Crossmatch Assessment and Plan (1) Symptomatic anemia Narrative/Plan: 53-year-old male presenting with complaints of symptomatic anemia. Previously the patient had EGD with findings of antral ulcer and gastritis in March, since that time he has been on iron supplementation, avoiding NSAID use and on PPI therapy. He has remained anemic. Last colonoscopy approximately 1 year ago in significant for diverticular disease. He denies any abdominal pain, change in bowel habits, signs or symptoms of GI bleeding. Current Visit: Yes Status: Acute Code(s): D64.9 - ANEMIA, UNSPECIFIED SNOMED Code(s): 301198658 (2) Gastric ulcer Current Visit: Yes Status: Acute Code(s): K25.9 - GASTRIC ULCER, UNSP ACUTE OR CHRONIC, W/O HEMOR OR PERF SNOMED Code(s): 650584601 (3) Weakness Current Visit: No Status: Acute Code(s): R53.1 - WEAKNESS SNOMED Code(s): 58020002 Plan: Supportive care Monitor hemoglobin and hematocrit and transfuse as needed Continue Protonix therapy Plan on endoscopic evaluation with EGD and colonoscopy and possible small bowel video capsule endoscopy pending findings of EGD and colonoscopy, with timing to be determined Okay for clear liquid diet Further recommendations to follow Thank you for allowing us to dissipate in the care of this patient we will continue to follow
--- NOTE | 2019-04-06 15:35 | P.HPIM ---
History of Present Illness H&P Date: 04/06/19 Chief Complaint: Symptomatic anemia History of presenting complaint: This is a pleasant 53-year-old patient of Dr. Espinal. Chronic stable medical conditions include GERD, arthralgias, diverticulosis. Patient is urine in the hospital from March 14 through March 16. He then presented feeling weak and tired. Hemoglobin was 7.1. He received a unit of blood. Hemoglobin before discharge was 8. Did undergo EGD by Dr. Cristhian Odom. Found to have 5 mm superficial antral ulcer in the prepyloric area and antral erosive gastritis. Patient having taking NSAIDs. Which she discontinued. Was discharged on PPIs. Patient was readmitted on March 27 and then discharged on March 28. Since hemoglobin have dropped again did receive 2 units of blood. Hemoglobin wa s 7.6. Patient presents again feeling dizzy lightheaded tired. Rundown. Denies any ductal's. Hemoglobin was down to 6.5. Unit of blood was ordered. GI was consulted. Review of systems: GEN.: Tired with activity EYES: None HEENT: None NECK: None RESPIRATORY: None CARDIOVASCULAR: None GASTROINTESTINAL: None GENITOURINARY: None MUSCULOSKELETAL: Achiness in the joints LYMPHATICS: None HEMATOLOGICAL: None PSYCHIATRY: None NEUROLOGICAL: None Social history: , smoked off and on for about 28 years, stopped in 2010. 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 No alcohol. Family history: Diabetes Physical examination: VITAL SIGNS: 98, 82, 16, 11 4/66, 100% room air GENERAL: BMI 32.1, sitting up in a chair awake EYES: Pupils equal. Conjunctiva pale. HEENT: External appearance of nose and ears normal, oral cavity grossly normal. NECK: JVD not raised; masses not palpable. HEART: First and second heart sounds are normal; no edema. LUNGS: Respiratory rate normal; clear to auscultation. ABDOMEN: Soft, nontender, liver spleen not palpable, no masses palpable. PSYCH: Alert and oriented x3; mood and affect normal. NEUROLOGICAL: Cranial nerves grossly intact; no facial asymmetry, power and sensation grossly intact. LYMPHATICS: No lymph nodes palpable in the axilla and neck INVESTIGATIONS, reviewed in the clinical context: Hemoglobin 6.5 platelets 302 potassium 4.4 creatinine 0.89 Assessment: -This is a patient who presented recently with acute GI bleed taking NSAIDs EGD and found antral ulcer and patient has received unit of blood on that admission. Patient was recently readmitted given 2 units of blood. Discharge hemoglobin 7.6. Now again presents with decrease in hemoglobin symptomatic. -Obesity BMI 30.7 -GERD -Chronic arthralgias -Colonic diverticulosis -Gastric ulcer and antral erosive gastritis from recent EGD Plan: Patient is seen by GI. Plan whether was repeat EGD colonoscope into a possible small bowel Endoscopy. Patient Has Received a Unit of Blood. Care Was Discussed with the Patient and . Past Medical History Past Medical History: Asthma, GERD/Reflux, Osteoarthritis (OA), Pneumonia Additional Past Medical History / Comment(s): Recurrent anemia, small stomach ulcer, negative stool for OBs, past gallstones-pt states he was very ill and had liver involvement, diverticular disease, arthritis in multiple joints, chronic pain, occasional headaches. History of Any Multi-Drug Resistant Organisms: None Reported Past Surgical History: Cholecystectomy Additional Past Surgical History / Comment(s): EGD, colonoscopy Past Anesthesia/Blood Transfusion Reactions: No Reported Reaction Smoking Status: Former smoker - Past Family History Mother Family Medical History: Diabetes Mellitus Additional Family Medical History / Comment(s): diet controlled diabetic Father Family Medical History: Cancer, CVA/TIA, Myocardial Infarction ([place]) Additional Family Medical History / Comment(s): Multiple types of cancer, CVAs, MIs with first [place] in his late 40s or early 50s. Medications and Allergies Home Medications Medication Instructions Recorded Confirmed Type Acetaminophen Tab [Tylenol] 1,000 mg PO Q6HR PRN 03/27/19 04/05/19 History Ferrous Sulfate [Iron (65 MG 325 mg PO HS 03/27/19 04/05/19 History Elemental)] Pantoprazole [Protonix] 40 mg PO DAILY 03/27/19 04/05/19 History Allergies Allergy/AdvReac Type Severity Reaction Status Date / Time ibuprofen Allergy Unknown Verified 04/05/19 11:52 Penicillins Allergy Unknown Verified 04/05/19 11:52 Childhood prednisone Allergy Rash/Hives Verified 04/05/19 11:52 shellfish derived [Shellfish] Allergy Unknown Verified 04/05/19 11:52 Physical Exam Vitals: Vital Signs Temp Pulse Pulse Resp BP BP Pulse Ox 04/06/19 05:00 97.7 F 85 18 102/67 100 04/05/19 21:00 98.1 F 78 18 103/58 97 04/05/19 16:38 97.8 F 79 14 120/56 98 04/05/19 15:15 98.3 F 79 14 117/70 100 04/05/19 14:45 97.6 F 77 14 105/67 100 04/05/19 14:35 97.8 F 72 12 115/78 100 04/05/19 13:39 97.5 F L 75 14 114/72 99 04/05/19 12:34 89 18 119/65 98 04/05/19 10:24 98 F 82 16 114/66 100 Intake and Output 04/05/19 04/06/19 04/06/19 22:59 06:59 14:59 Intake Total 310 Balance 310 Intake: Blood Product 310 Rc Irr As1 Unit 310 [id number] Other: # Voids 2 1 Results CBC & Chem 7: 04/06/19 09:22 04/06/19 09:24 Labs: Abnormal Lab Results - Last 24 Hours (Table) 04/05/19 04/05/19 04/05/19 Range/Units 10:40 10:40 10:40 RBC 2.19 L (4.30-5.90) m/uL Hgb 6.5 L* (13.0-17.5) gm/dL Hct 20.0 L (39.0-53.0) % Lymphocytes # (Manual) 4.82 H (1.0-4.8) k/uL Chloride (98-107) mmol/L Glucose 123 H (74-99) mg/dL AST (17-59) U/L Total Protein (6.3-8.2) g/dL Crossmatch See Detail 04/06/19 04/06/19 Range/Units 09:22 09:24 RBC 2.45 L (4.30-5.90) m/uL Hgb 7.1 L (13.0-17.5) gm/dL Hct 22.7 L (39.0-53.0) % Lymphocytes # (Manual) (1.0-4.8) k/uL Chloride 108 H (98-107) mmol/L Glucose (74-99) mg/dL AST 13 L (17-59) U/L Total Protein 5.8 L (6.3-8.2) g/dL Crossmatch Thrombosis Risk Factor Assmnt - Choose All That Apply Any of the Below Risk Factors Present?: Yes Each Factor Represents 1 point: Age 41-60 years, Obesity (BMI >25) Other Risk Factors: No Other congenital or acquired thrombophilia - If yes, enter type in comment: No Thrombosis Risk Factor Assessment Total Risk Factor Score: 2 Thrombosis Risk Factor Assessment Level: Low Risk
[2019-04-06] MEDS ORDERED: PEG 3350-NA SULF,BICARB,CL/KCL 4,000 ML BOTTLE PO ONE (17:00)
[2019-04-06] MEDS ORDERED: BISACODYL 5 MG TABLET.DR PO ONE (17:00)
--- NOTE | 2019-04-06 19:12 | P.CONS ---
History of Present Illness - Reason for Consult Consult date: 04/06/19 Symptomatic anemia - Chief Complaint Symptomatic anemia - History of Present Illness 53-year-old gentleman with a past medical history of GERD, arthralgias, diverticulosis, with a history of anemia ongoing for the last 1 month for which he has been evaluated as outpatient, as well as the patient had a colonoscopy a year ago and did undergo endoscopy recently and was found to have 5 mm superficial antral ulcer and prepyloric area in the gastrohepatic. Patient does have a history of taking anti-inflammatory drugs, currently the patient has been admitted with significant lightheadedness feeling fatigued and tired and run down all the time. At the time of admission the hemoglobin is 6.5 and received PRBC. GI has been consulted and are planning likely due to endoscopy colonoscopy and possibly Capsule endoscopy. Hematology we consulted for further evaluation of anemia. Past medical history of asthma, GERD, osteoarthritis, pneumonia, gastritis, anemia. Past surgical history significant for cholecystectomy EGD colonoscopy. Family history significant for diabetes in mother, history of malignancy in father history of CVA TIA and myocardial infarction and father as well. Review of systems negative except as mentioned above. Social history: History of smoking in the past. Review of Systems Patient is weak and fatigued and dizzy the rest of the review of systems negative Past Medical History Past Medical History: Asthma, GERD/Reflux, Osteoarthritis (OA), Pneumonia Additional Past Medical History / Comment(s): Recurrent anemia, small stomach ulcer, negative stool for OBs, past gallstones-pt states he was very ill and had liver involvement, diverticular disease, arthritis in multiple joints, chronic pain, occasional headaches. History of Any Multi-Drug Resistant Organisms: None Reported Past Surgical History: Cholecystectomy Additional Past Surgical History / Comment(s): EGD, colonoscopy Past Anesthesia/Blood Transfusion Reactions: No Reported Reaction Smoking Status: Former smoker - Past Family History Mother Family Medical History: Diabetes Mellitus Additional Family Medical History / Comment(s): diet controlled diabetic Father Family Medical History: Cancer, CVA/TIA, Myocardial Infarction ([place]) Additional Family Medical History / Comment(s): Multiple types of cancer, CVAs, MIs with first [place] in his late 40s or early 50s. Medications and Allergies Home Medications Medication Instructions Recorded Confirmed Type Acetaminophen Tab [Tylenol] 1,000 mg PO Q6HR PRN 03/27/19 04/05/19 History Ferrous Sulfate [Iron (65 MG 325 mg PO HS 03/27/19 04/05/19 History Elemental)] Pantoprazole [Protonix] 40 mg PO DAILY 03/27/19 04/05/19 History Allergies Allergy/AdvReac Type Severity Reaction Status Date / Time ibuprofen Allergy Unknown Verified 04/05/19 11:52 Penicillins Allergy Unknown Verified 04/05/19 11:52 Childhood prednisone Allergy Rash/Hives Verified 04/05/19 11:52 shellfish derived [Shellfish] Allergy Unknown Verified 04/05/19 11:52 Physical Exam Vitals: Vital Signs Temp Pulse Resp BP Pulse Ox 04/06/19 12:07 98.1 F 82 16 115/74 98 04/06/19 05:00 97.7 F 85 18 102/67 100 04/05/19 21:00 98.1 F 78 18 103/58 97 Intake and Output 04/06/19 04/06/19 04/06/19 06:59 14:59 22:59 Intake Total 600 Balance 600 Intake: Oral 600 Other: # Voids 1 2 The patient appeared well nourished and normally developed. Vital signs as documented. Head exam is unremarkable. No scleral icterus or corneal arcus noted. Neck is without jugular venous distension, thyromegaly, or carotid bruits. Carotid upstrokes are brisk bilaterally. Lungs are clear to auscultation and percussion. Cardiac exam reveals the PMI to be normally sized and situated. Rhythm is regular. First and second heart sounds normal. No murmurs, rubs or gallops. Abdominal exam reveals normal bowel sounds, no masses, no organomegaly and no aortic enlargement. Extremities are nonedematous and both femoral and pedal pulses are normal. Results CBC & Chem 7: 04/06/19 09:22 04/06/19 09:24 Labs: Abnormal Lab Results - Last 24 Hours (Table) 04/06/19 04/06/19 Range/Units 09:22 09:24 RBC 2.45 L (4.30-5.90) m/uL Hgb 7.1 L (13.0-17.5) gm/dL Hct 22.7 L (39.0-53.0) % Myelocytes # (Manual) 0.08 H (0) k/uL Chloride 108 H (98-107) mmol/L AST 13 L (17-59) U/L Total Protein 5.8 L (6.3-8.2) g/dL Assessment and Plan Plan: Impression and plan: 1. Symptomatic anemia: Normocytic: - Previous history of GI bleeding with history of taking NSAIDs, previously had endoscopy that showed antral ulcer and gastritis. Patient was discharged recently in March and now readmitted with hemoglobin under 7. - Transfuse to keep hemoglobin above 7. - Planned to evaluate for iron deficiency, check B12 folate levels, serum protein electrophoresis, LDH haptoglobin to rule out hemolysis, LDH and haptoglobin globulin rule out hemolysis. - Soluble transferrin receptor, - GI evaluation for EGD colonoscopy and Capsule endoscopy - Start IV iron supplementation. 2. History of GERD 3. History of arthralgias, diverticulosis, obesity. Thank you very much for the consult. We will continue to follow. Labs have been ordered. Ayden Temple
[2019-04-06 19:51] LABS: HCT 23.3 % (39.0-53.0); HGB 7.8 gm/dL (13.0-17.5); MCH 31.2 pg (25.0-35.0); MCHC 33.5 g/dL (31.0-37.0); MCV 92.9 fL (80.0-100.0); Mean Platelet Volume 8.7; Platelet Count 300 k/uL (150-450); RBC 2.51 m/uL (4.30-5.90); RDW 13.4 % (11.5-15.5); WBC 12.3 k/uL (3.8-10.6)
[2019-04-06] MEDS ORDERED: SODIUM FERRIC GLUCONAT-SUCROSE 125 MG in SODIUM CHLORIDE 0.9% 100 ML IVPB ONE (20:00)
[2019-04-06 20:07] LABS: Reticulocyte % 0.1 % (0.5-2.0)
--- NOTE | 2019-04-06 21:57 | P.PN ---
Subjective Progress Note Date: 04/06/19 Principal diagnosis: Anemia Patient is seen lying in bed. Tolerated his diet yesterday. No GI bleeding reported. Objective - Vital Signs Vital signs: Vital Signs Temp 98.1 F 04/06/19 12:07 Pulse 82 04/06/19 12:07 Resp 16 04/06/19 12:07 BP 115/74 04/06/19 12:07 Pulse Ox 98 04/06/19 12:07 Intake & Output 04/05/19 04/06/19 04/06/19 18:59 06:59 18:59 Intake Total 310 Balance 310 Weight 104.326 kg Intake: Blood Product 310 Rc Irr As1 Unit 310 [id number] Other: # Voids 1 - Exam On physical examination, patient appears comfortable in no apparent distress. HEAD: Normocephalic, atraumatic. EYES: No scleral icterus. No conjunctival injection. MOUTH: No lesions, tongue midline. NECK: Trachea midline, no gross abnormalities. CHEST: Clear to auscultation with no wheezing or rhonchi appreciated. HEART: Regular rate and rhythm. ABDOMEN: Soft, obese. Bowel sounds are positive. No organomegaly. No guarding or rigidity. EXTREMITIES: No pedal edema. SKIN: No rashes, no jaundice. NEUROLOGIC: Alert and oriented x3. No focal deficits. - Labs CBC & Chem 7: 04/06/19 19:29 04/06/19 09:24 Labs: Abnormal Lab Results - Last 24 Hours (Table) 04/05/19 04/06/19 04/06/19 Range/Units 10:40 09:22 09:24 RBC 2.45 L (4.30-5.90) m/uL Hgb 7.1 L (13.0-17.5) gm/dL Hct 22.7 L (39.0-53.0) % Myelocytes # (Manual) 0.08 H (0) k/uL Chloride 108 H (98-107) mmol/L AST 13 L (17-59) U/L Total Protein 5.8 L (6.3-8.2) g/dL Crossmatch See Detail Assessment and Plan (1) Symptomatic anemia Narrative/Plan: 53-year-old male presenting with complaints of symptomatic anemia. Previously the patient had EGD with findings of antral ulcer and gastritis in March 2019, since that time he has been on iron supplementation, avoiding NSAID use and on PPI therapy. He has remained anemic. Last colonoscopy approximately 1 year ago in significant for diverticular disease. He denies any abdominal pain, change in bowel habits, signs or symptoms of GI bleeding. Current Visit: Yes Status: Acute Code(s): D64.9 - ANEMIA, UNSPECIFIED SNOMED Code(s): 122101526 (2) Gastric ulcer Current Visit: Yes Status: Acute Code(s): K25.9 - GASTRIC ULCER, UNSP ACUTE OR CHRONIC, W/O HEMOR OR PERF SNOMED Code(s): 472535012 (3) Weakness Current Visit: No Status: Acute Code(s): R53.1 - WEAKNESS SNOMED Code(s): 10807731 Plan: Supportive care Monitor hemoglobin and hematocrit and transfuse as needed Continue Protonix therapy Plan on endoscopic evaluation with EGD and colonoscopy and possible small bowel video capsule endoscopy pending findings of EGD and colonoscopy, with timing to be determined Okay for clear liquid diet Further recommendations to follow Thank you for allowing us to participate in the care of the patient we will continue to follow
[2019-04-06 22:01] LABS: Eosinophils # (M) 0.37 k/uL (0-0.7); Lymphocytes # (M) 6.77 k/uL (1.0-4.8); Monocytes # (M) 0.37 k/uL (0-1.0); Neutrophils % (M) 39 %; Nucleated Red Blood Cells 0 /100 WBC (0-0); Total Cells Counted 100
[2019-04-06 22:56] LABS: Protein, Total 5.8 g/dL (6.2-8.2)
[2019-04-06 23:05] LABS: Iron Saturation 89.91 (15.00-50.00)
[2019-04-06 23:15] LABS: Ferritin 474.7 ng/mL (22.0-322.0)
[2019-04-07] MEDS: PANTOPRAZOLE 40 MG/10 ML VIAL IV SCH ×2 (07:52→21:19)
[2019-04-07] MEDS ORDERED: IRON DEXTRAN 100 MG/2 ML VIAL IV ONE (09:00)
[2019-04-07] MEDS ORDERED: LACTATED RINGERS 500 ML IV ONE (09:50)
[2019-04-07] MEDS ORDERED: PROPOFOL 10 MG/ML 20 ML VIAL IV ONE (09:53)
[2019-04-07] MEDS ORDERED: SIMETHICONE 40 MG/0.6 ML DROPS 2,000 MG/30 ML BOTTLE PO ONE (11:07)
--- NOTE | 2019-04-07 15:51 | P.PN ---
Progress Note - Text Progress Note Date: 04/07/19 Chief Complaint: Symptomatic anemia Interval history: This is a pleasant 53-year-old patient of Dr. Espinal. Chronic stable medical conditions include GERD, arthralgias, diverticulosis. Patient is urine in the hospital from March 14 through March 16. He then presented feeling weak and tired. Hemoglobin was 7.1. He received a unit of blood. Hemoglobin before discharge was 8. Did undergo EGD by Dr. Cristhian Odom. Found to have 5 mm superficial antral ulcer in the prepyloric area and antral erosive gastritis. Patient having taking NSAIDs. Which she discontinued. Was discharged on PPIs. Patient was readmitted on March 27 and then discharged on March 28. Since hemoglobin have dropped again did receive 2 units of blood. Hemoglobin was 7.6. Patient presents again feeling dizzy lightheaded tired. Rundown. Denies any ductal's. Hemoglobin was down to 6.5. Unit of blood was ordered. GI was consulted. Today- Patient underwent EGD and colonoscopic today. Apparently results unremarkable. Small bowel capsule camera study is started. Also hematological workup in place. Otherwise patient stable. Review of systems: Was done for constitutional, cardiovascular, GI, pulmonary. relevant finding as above Active Medications Acetaminophen (Tylenol Tab) 650 mg PO Q6HR PRN PRN Reason: Mild Pain or Fever > 100.5 Naloxone HCl (Narcan) 0.2 mg IV Q2M PRN PRN Reason: Opioid Reversal Ondansetron HCl (Zofran) 4 mg IVP Q8HR PRN PRN Reason: Nausea And Vomiting Pantoprazole Sodium (Protonix) 40 mg IV BID SHAWANDA Last Admin: 04/07/19 07:52 Dose: 40 mg Documented by: Physical examination: VITAL SIGNS: 98.3, 84, 16, 101/61, 97% room air GENERAL: Sitting at the edge of bed, EYES: Pupils equal. Conjunctiva pale. HEENT: External appearance of nose and ears normal, oral cavity grossly normal. NECK: JVD not raised; masses not palpable. HEART: First and second heart sounds are normal; no edema. LUNGS: Respiratory rate normal; clear to auscultation. ABDOMEN: Soft, nontender, liver spleen not palpable, no masses palpable. PSYCH: Alert and oriented x3; mood and affect normal. NEUROLOGICAL: Cranial nerves grossly intact; no facial asymmetry, power and sensation grossly intact. LYMPHATICS: No lymph nodes palpable in the axilla and neck INVESTIGATIONS, reviewed in the clinical context: Hemoglobin 7.8 Assessment: -This is a patient who presented recently with acute GI bleed taking NSAIDs EGD and found antral ulcer and patient has received unit of blood on that admission. Patient was recently readmitted given 2 units of blood. Discharge hemoglobin 7.6. Now again presents with decrease in hemoglobin symptomatic. -Obesity BMI 30.7 -GERD -Chronic arthralgias -Colonic diverticulosis -Gastric ulcer and antral erosive gastritis from recent EGD Plan: Care discussed with the patient and . Small bowel capsule study in progress.
[2019-04-07 16:49] LABS: Glucose,Whole Blood 143 mg/dL (75-99)
[2019-04-08] MEDS: PANTOPRAZOLE 40 MG/10 ML VIAL IV SCH (07:21)
[2019-04-08 08:08] LABS: MCH 31.3 pg (25.0-35.0); MCV 91.8 fL (80.0-100.0); Mean Platelet Volume 7.4; Platelet Count 241 k/uL (150-450); RBC 2.17 m/uL (4.30-5.90); WBC 8.1 k/uL (3.8-10.6)
[2019-04-08 08:14] LABS: HGB 6.8 gm/dL (13.0-17.5)
--- NOTE | 2019-04-08 15:14 | P.PCN ---
Date of Procedure: 04/07/19 Description of Procedure: Brief history: 53-year-old male with recent admission in early March for anemia, and other medical problems including osteoarthritis, GERD, diverticular disease who presented to the hospital for evaluation of anemia. The patient previously underwent colonoscopy approximately 1 year ago with reports from the patient. Findings of diverticulosis and was seen for EGD on 03/15/2019 when he was found to have gastritis and antral ulcer. The patient has remained symptomatic despite of PPI therapy and iron supplementation. He reports frequent shortness of breath. Outpatient laboratory draw was significant for persistent anemia. He denies any change in bowel habits, blood per rectum, although bowel movements have been darker since starting iron supplementation. No NSAID use reported since findings of ulcer in March. Procedure performed: Esophagogastroduodenoscopy with biopsy Colonoscopy with polypectomy and biopsy Estimated blood loss: Minimal. Preoperative diagnosis: Iron deficiency anemia. Anesthesia: MAC Procedure: After informed consent was obtained from the patient was brought into the endoscopy unit and IV sedation was administered by anesthesia under continuous monitoring. Initially upper endoscopy was done. The Olympus GF 190 video endoscope was inserted inserted into the mouth and esophagus intubated without any difficulty and was gradually advanced into the stomach and duodenum and carefully examined. The bulb and second part of the duodenum appeared normal, with biopsies taken. The scope was then withdrawn into the stomach adequately insufflated with air and upon careful examination the antrum and body, cardia and fundus appeared normal, with previously noted antral ulcers healing well with biopsies of the antrum taken. The scope was then withdrawn into the esophagus. The GE junction was located at 40 cm to the incisors. It appeared regular with no erythema erosions or ulcerations. Rest of the esophagus appeared normal. Patient tolerated the procedure well. At this time the patient continued to remain sedation. Initial digital rectal examination was normal. Olympus CF 190 video colonoscope was then inserted into the rectum and gradually advanced to the cecum without any difficulty. Careful examination was performed as the scope was gradually being withdrawn. The prep was excellent. The cecum, ascending colon, transverse colon, descending colon, sigmoid colon and rectum appeared normal, and the terminal ileum which was also intubated appeared normal, with random biopsies of the terminal ileum, right colon and left colon. A diminutive 2 mm descending colon polyp was removed with cold forcep polypectomy. Retroflexion was performed in the rectum and no lesions were noted. Patient tolerated the procedure well. Impression: 1. Previously noted antral ulcers healing well with biopsies of the antrum and body and duodenum. 2. Normal-appearing colon from rectum to cecum and terminal ileum. Random biopsies of the right colon, left colon and terminal ileum. Diminutive travis cending colon polyp removed with cold forceps. Recommendations: Findings of this examination were discussed with the patient as well as his mother and . Continue hematology workup. Video capsule endoscopy ordered. Okay for diet after 4 hours post capsule administration.
[2019-04-08] MEDS: PANTOPRAZOLE 40 MG TABLET PO SCH (18:22)
--- NOTE | 2019-04-08 18:26 | P.PN ---
Subjective Progress Note Date: 04/08/19 Principal diagnosis: anemia Pt seen with mother at bedside. No c/o other then SOB on exertion and weakness with minor activity, denies any bleeding Objective - Vital Signs Vital signs: Vital Signs Temp 98.4 F 04/08/19 16:49 Pulse 88 04/08/19 16:49 Resp 16 04/08/19 16:49 BP 149/70 04/08/19 16:49 Pulse Ox 97 04/08/19 16:49 Intake & Output 04/07/19 04/08/19 04/08/19 18:59 06:59 18:59 Intake Total 200 590 310 Balance 200 590 310 Intake: IV 200 Oral 590 Blood Product 310 Rc Pheresis 2 As3 Unit 310 [id number] Other: # Voids 1 2 - Constitutional General appearance: Present: average body habitus, cooperative - EENT Eyes: Present: anicteric sclerae, EOMI - Respiratory Details: respirations even and unlabored - Cardiovascular Rhythm: regular Heart sounds: normal: S1, S2 - Neurologic Neurologic: Present: CNII-XII intact - Musculoskeletal Musculoskeletal: Present: generalized weakness, strength equal bilaterally - Psychiatric Psychiatric: Present: A&O x's 3, appropriate affect, intact judgment & insight - Labs CBC & Chem 7: 04/08/19 07:11 04/06/19 09:24 Labs: Abnormal Lab Results - Last 24 Hours (Table) 04/05/19 04/06/19 04/06/19 Range/Units 10:40 19:29 19:29 RBC (4.30-5.90) m/uL Hgb (13.0-17.5) gm/dL Hct (39.0-53.0) % Pathologist Review See comment A Haptoglobin 220.0 H (31.2-198.0) mg/dL Transferrin 160.0 L (204.0-354.0) mg/dL Crossmatch See Detail 04/08/19 Range/Units 07:11 RBC 2.17 L (4.30-5.90) m/uL Hgb 6.8 L* (13.0-17.5) gm/dL Hct 20.0 L (39.0-53.0) % Pathologist Review Haptoglobin (31.2-198.0) mg/dL Transferrin (204.0-354.0) mg/dL Crossmatch Assessment and Plan (1) Symptomatic anemia Current Visit: Yes Status: Acute Priority: High Code(s): D64.9 - ANEMIA, UNSPECIFIED SNOMED Code(s): 522092404 (2) Anemia Current Visit: Yes Status: Acute Priority: High Code(s): D64.9 - ANEMIA, UNSPECIFIED SNOMED Code(s): 304674073 Plan: EGD/colon/capsule biopsy/report pending. No evidence of hemolysis 1 unit PRBCs for Hgb<7 today Reivewed work up completed, in-progress and how we will cont to proceed with work up if no answers. Pt and mother verbalized understanding. Pt won't be discharged until stable Hgb
--- NOTE | 2019-04-08 19:24 | P.PN ---
Progress Note - Text Progress Note Date: 04/08/19 Chief Complaint: Symptomatic anemia Interval history: This is a pleasant 53-year-old patient of Dr. Espinal. Chronic stable medical conditions include GERD, arthralgias, diverticulosis. Patient is urine in the hospital from March 14 through March 16. He then presented feeling weak and tired. Hemoglobin was 7.1. He received a unit of blood. Hemoglobin before discharge was 8. Did undergo EGD by Dr. Cristhian Odom. Found to have 5 mm superficial antral ulcer in the prepyloric area and antral erosive gastritis. Patient having taking NSAIDs. Which she discontinued. Was discharged on PPIs. Patient was readmitted on March 27 and then discharged on March 28. Since hemoglobin have dropped again did receive 2 units of blood. Hemoglobin was 7.6. Patient presents again feeling dizzy lightheaded tired. Rundown. Denies any ductal's. Hemoglobin was down to 6.5. Unit of blood was ordered. GI was consulted. Patient underwent EGD and colonoscopic. Antral ulcer healing well. No other cause for bleeding found.. Apparently results unremarkable. Had small bowel capsule camera study done. Today-this morning, hemoglobin dropped to 6.8. Unit of blood ordered. Hemolysis workup has been negative to now. Awaiting capsule camera study results. Review of systems: Was done for constitutional, cardiovascular, GI, pulmonary. relevant finding as above Active Medications Acetaminophen (Tylenol Tab) 650 mg PO Q6HR PRN PRN Reason: Mild Pain or Fever > 100.5 Last Admin: 04/07/19 16:59 Dose: 650 mg Documented by: Naloxone HCl (Narcan) 0.2 mg IV Q2M PRN PRN Reason: Opioid Reversal Ondansetron HCl (Zofran) 4 mg IVP Q8HR PRN PRN Reason: Nausea And Vomiting Pantoprazole Sodium (Protonix) 40 mg PO AC-BID SHAWANDA Last Admin: 04/08/19 18:22 Dose: 40 mg Documented by: Physical examination: VITAL SIGNS: 98.3, 88, 16, 135/31, 87% GENERAL: Sitting up, comfortable EYES: Pupils equal. Conjunctiva pale. HEENT: External appearance of nose and ears normal, oral cavity grossly normal. NECK: JVD not raised; masses not palpable. HEART: First and second heart sounds are normal; no edema. LUNGS: Respiratory rate normal; clear to auscultation. ABDOMEN: Soft, nontender, liver spleen not palpable, no masses palpable. PSYCH: Alert and oriented x3; mood and affect normal. NEUROLOGICAL: Cranial nerves grossly intact; no facial asymmetry, power and sensation grossly intact. LYMPHATICS: No lymph nodes palpable in the axilla and neck INVESTIGATIONS, reviewed in the clinical context: Hemoglobin 6.8 Assessment: -This is a patient who presented recently with acute GI bleed taking NSAIDs EGD and found antral ulcer and patient has received unit of blood on that admission. Patient was recently readmitted given 2 units of blood. Discharge hemoglobin 7.6. Now again presents with decrease in hemoglobin symptomatic. Hemolysis workup was negative. EGD colonoscopy unremarkable. -Obesity BMI 30.7 -GERD -Chronic arthralgias -Colonic diverticulosis -Gastric ulcer and antral erosive gastritis from recent EGD Plan: Small bowel capsule study results pending. Hemoglobin 6.8 this morning. 1 will unit of blood ordered. Follow with GI
[2019-04-08] MEDS ORDERED: MAGNESIUM CITRATE 296 ML BOTTLE PO ONE (21:17)
--- NOTE | 2019-04-08 21:44 | P.PN ---
Subjective Progress Note Date: 04/08/19 Principal diagnosis: Anemia Patient is seen lying in bed. No abdominal pain and the patient is denying any signs or symptoms of GI bleeding. Objective - Vital Signs Vital signs: Vital Signs Temp 98.4 F 04/08/19 16:49 Pulse 88 04/08/19 16:49 Resp 16 04/08/19 16:49 BP 149/70 04/08/19 16:49 Pulse Ox 97 04/08/19 16:49 Intake & Output 04/08/19 04/08/19 04/09/19 06:59 18:59 06:59 Intake Total 590 510 Balance 590 510 Intake: Oral 590 200 Blood Product 310 Rc Pheresis 2 As3 Unit 310 [id number] Other: # Voids 2 2 - Exam On physical examination, patient appears comfortable in no apparent distress. HEAD: Normocephalic, atraumatic. EYES: No scleral icterus. No conjunctival injection. MOUTH: No lesions, tongue midline. NECK: Trachea midline, no gross abnormalities. CHEST: Clear to auscultation with no wheezing or rhonchi appreciated. HEART: Regular rate and rhythm. ABDOMEN: Soft, obese. Bowel sounds are positive. No organomegaly. No guarding or rigidity. EXTREMITIES: No pedal edema. SKIN: No rashes, no jaundice. NEUROLOGIC: Alert and oriented x3. No focal deficits. - Labs CBC & Chem 7: 04/08/19 07:11 04/06/19 09:24 Labs: Abnormal Lab Results - Last 24 Hours (Table) 04/05/19 04/06/19 04/06/19 Range/Units 10:40 19:29 19:29 RBC (4.30-5.90) m/uL Hgb (13.0-17.5) gm/dL Hct (39.0-53.0) % Pathologist Review See comment A Haptoglobin 220.0 H (31.2-198.0) mg/dL Transferrin 160.0 L (204.0-354.0) mg/dL Crossmatch See Detail 04/08/19 Range/Units 07:11 RBC 2.17 L (4.30-5.90) m/uL Hgb 6.8 L* (13.0-17.5) gm/dL Hct 20.0 L (39.0-53.0) % Pathologist Review Haptoglobin (31.2-198.0) mg/dL Transferrin (204.0-354.0) mg/dL Crossmatch Assessment and Plan (1) Symptomatic anemia Narrative/Plan: 53-year-old male presenting with complaints of symptomatic anemia. Previously the patient had EGD with findings of antral ulcer and gastritis in March 2019, since that time he has been on iron supplementation, avoiding NSAID use and on PPI therapy. He has remained anemic. Last colonoscopy approximately 1 year ago in significant for diverticular disease. Patient underwent repeat EGD and colonoscopy with findings of healing antral ulcer, and no evidence of old blood or active bleeding or pathology to explain anemia on colonoscopy. Patient underwent video capsule endoscopy which again was negative for any pathology. The video capsule was incomplete as it did not traverse the entire small bowel however no pathology to explain anemia was found. Patient also has an inappropriately low reticulocyte count and suspicion is for hematologic process as the cause of his anemia. Current Visit: Yes Status: Acute Priority: High Code(s): D64.9 - ANEMIA, UNSPECIFIED SNOMED Code(s): 846581426 (2) Gastric ulcer Current Visit: Yes Status: Acute Code(s): K25.9 - GASTRIC ULCER, UNSP ACUTE OR CHRONIC, W/O HEMOR OR PERF SNOMED Code(s): 661387651 (3) Weakness Current Visit: No Status: Acute Code(s): R53.1 - WEAKNESS SNOMED Code(s): 74995423 Plan: Supportive care Monitor hemoglobin and hematocrit and transfuse as needed Continue Protonix therapy No source of bleeding found on EGD, colonoscopy or video capsule endoscopy, however capsule endoscopy did not traverse the entire small bowel and will repeat with EGD placement of capsule in the duodenum tomorrow Of note reticulocyte count was abnormally low at 0.1 and patient will need continued hematologic workup Thank you for allowing us to participate in the care of the patient we will continue to follow
[2019-04-09] MEDS: PANTOPRAZOLE 40 MG TABLET PO SCH ×2 (08:04→20:19)
[2019-04-09 09:12] LABS: HCT 22.5 % (39.0-53.0); HGB 7.7 gm/dL (13.0-17.5); MCH 31.3 pg (25.0-35.0); MCHC 34.4 g/dL (31.0-37.0); MCV 90.9 fL (80.0-100.0); Mean Platelet Volume 7.9; Platelet Count 243 k/uL (150-450); RBC 2.47 m/uL (4.30-5.90); RDW 13.2 % (11.5-15.5); WBC 7.4 k/uL (3.8-10.6)
[2019-04-09 11:22] LABS: Eosinophils # (M) 0.67 k/uL (0-0.7); Lymphocytes # (M) 3.33 k/uL (1.0-4.8); Monocytes # (M) 0.22 k/uL (0-1.0); Neutrophils % (M) 43 %; Nucleated Red Blood Cells 0 /100 WBC (0-0); Total Cells Counted 100
[2019-04-09] MEDS ORDERED: PROPOFOL 10 MG/ML 20 ML VIAL IV ONE (14:50)
[2019-04-09] MEDS ORDERED: LIDOCAINE 1% INJ 10MG/ML (20 ML MDV) ONE (14:50)
[2019-04-09] MEDS ORDERED: SODIUM CHLORIDE 0.9% 500 ML 500 ML IV ONE (15:00)
--- NOTE | 2019-04-09 15:27 | P.PCN ---
Date of Procedure: 04/09/19 Description of Procedure: Brief history: 53-year-old male with recent admission in early March for anemia, and other medical problems including osteoarthritis, GERD, diverticular disease who presented to the hospital for evaluation of anemia. The patient previously underwent colonoscopy approximately 1 year ago with reports from the patient. Findings of diverticulosis and was seen for EGD on 03/15/2019 when he was found to have gastritis and antral ulcer. The patient has remained symptomatic despite of PPI therapy and iron supplementation. He reports frequent shortness of breath. Outpatient laboratory draw was significant for persistent anemia. He denies any change in bowel habits, blood per rectum, although bowel movements have been darker since starting iron supplementation. No NSAID use reported since findings of ulcer in March. The patient underwent EGD with findings of a well healing antral ulcer with biopsies of antrum and body as well as a colonoscopy with a normal appearing colon and random biopsies taken as well as polypectomy. Video capsule endoscopy was incomplete as did not traverse the whole small bowel and so EGD is planned to the repeated with placement of the capsule in the small bowel. Procedure performed: Esophagogastroduodenoscopy with placement of video capsule/PillCam in the small bowel Estimated blood loss: Minimal. Preoperative diagnosis: Iron deficiency anemia. Anesthesia: MAC Procedure: After informed consent was obtained from the patient was brought into the endoscopy unit and IV sedation was administered by anesthesia under continuous monitoring. Initially upper endoscopy was done. The Olympus GF 190 video endoscope was inserted inserted into the mouth and esophagus intubated without any difficulty and was gradually advanced into the stomach and duodenum and carefully examined. The bulb and second part of the duodenum appeared normal, with video capsule/PillCam placed in the small bowel. The scope was then withdrawn into the stomach adequately insufflated with air and upon careful examination the antrum and body, cardia and fundus appeared normal, with previously noted antral ulcers healing well. The scope was then withdrawn into the esophagus. The GE junction was located at 40 cm to the incisors. It appeared regular with no erythema erosions or ulcerations. Rest of the esophagus appeared normal. Patient tolerated the procedure well. Impression: 1. Previously noted antral ulcers healing well with placement of a video capsule/PillCam in the small bowel. Recommendations: Findings of this examination were discussed with the patient as well as his mother and . Continue hematology workup. Video capsule endoscopy to be read upon completion. Okay for liquids after 2 hours of capsule placement and regular diet after 4 hours.
--- NOTE | 2019-04-09 16:18 | P.PN ---
Subjective Progress Note Date: 04/09/19 Principal diagnosis: anemia Pt seen with mother and at bedside. No new c/o, no bleeding, "bad tooth" on the right is causing some neck pain. Objective - Vital Signs Vital signs: Vital Signs Temp 98.4 F 04/09/19 05:00 Pulse 81 04/09/19 05:00 Resp 18 04/09/19 05:00 BP 131/73 04/09/19 05:00 Pulse Ox 98 04/09/19 05:00 Intake & Output 04/08/19 04/09/19 04/09/19 18:59 06:59 18:59 Intake Total 510 240 200 Balance 510 240 200 Intake: IV 200 Oral 200 240 0 Blood Product 310 Rc Pheresis 2 As3 Unit 310 [id number] Other: Voiding Method Toilet # Voids 2 1 - Constitutional General appearance: Present: average body habitus, cooperative, no acute distress - EENT EENT Comment(s): right neck fullness and tenderness, pt has severe tooth decay on right upper molar area. Eyes: Present: anicteric sclerae, EOMI - Respiratory Details: respirations even and unlabored - Cardiovascular Details: skin warm and dry, radial pulse 2+ RRR - Integumentary Integumentary: Present: pale - Neurologic Neurologic: Present: CNII-XII intact - Musculoskeletal Musculoskeletal: Present: generalized weakness, strength equal bilaterally - Psychiatric Psychiatric: Present: A&O x's 3, appropriate affect, intact judgment & insight - Labs CBC & Chem 7: 04/09/19 08:02 04/06/19 09:24 Labs: Abnormal Lab Results - Last 24 Hours (Table) 04/05/19 04/06/19 04/09/19 Range/Units 10:40 19:29 08:02 RBC 2.47 L (4.30-5.90) m/uL Hgb 7.7 L (13.0-17.5) gm/dL Hct 22.5 L (39.0-53.0) % Pathologist Review See comment A Crossmatch See Detail Assessment and Plan (1) Symptomatic anemia Narrative/Plan: Work up still in progress. LAbs pending. Attending ordering another capsule. Overall Hgb is actually stable. Hematology work up can be completed outpatient (ie bone marrow if necessary) along with CBC monitoring and transfusions PRN Pt states a history of "iron over efficient"-? She is going to bring me the labs to review this. Current Visit: Yes Status: Acute Priority: High Code(s): D64.9 - ANEMIA, UNSPECIFIED SNOMED Code(s): 260246765 (2) Anemia Current Visit: Yes Status: Acute Priority: High Code(s): D64.9 - ANEMIA, UNSPECIFIED SNOMED Code(s): 038301760 Plan: EGD/colon/capsule complete Biopsy pending. No evidence of hemolysis Transfuse for Hgb<7 Case briefly discussed with Attending
[2019-04-09 19:21] VITALS: RESP 16
--- NOTE | 2019-04-09 20:18 | P.PN ---
Progress Note - Text Progress Note Date: 04/09/19 Interval history: This is a pleasant 53-year-old patient of Dr. Espinal. Chronic stable medical conditions include GERD, arthralgias, diverticulosis. Patient is urine in the hospital from March 14 through March 16. He then presented feeling weak and tired. Hemoglobin was 7.1. He received a unit of blood. Hemoglobin before discharge was 8. Did undergo EGD by Dr. Cristhian Odom. Found to have 5 mm superficial antral ulcer in the prepyloric area and antral erosive gastritis. Patient having taking NSAIDs. Which she discontinued. Was discharged on PPIs. Patient was readmitted on March 27 and then discharged on March 28. Since hemoglobin have dropped again did receive 2 units of blood. Hemoglobin was 7.6. Patient presents again feeling dizzy lightheaded tired. Rundown. Denies any ductal's. Hemoglobin was down to 6.5. Unit of blood was ordered. GI was consulted. Patient underwent EGD and colonoscopic. Antral ulcer healing well. No other cause for bleeding found.. Apparently results unremarkable. Had small bowel capsule camera study done. Unremarkable but incomplete. Today-sided the patient this morning. No new issues. Awaiting a repeat capsule study. and mother the bedside. Review of systems: Was done for constitutional, cardiovascular, GI, pulmonary. relevant finding as above Active Medications Acetaminophen (Tylenol Tab) 650 mg PO Q6HR PRN PRN Reason: Mild Pain or Fever > 100.5 Last Admin: 04/07/19 16:59 Dose: 650 mg Documented by: Naloxone HCl (Narcan) 0.2 mg IV Q2M PRN PRN Reason: Opioid Reversal Ondansetron HCl (Zofran) 4 mg IVP Q8HR PRN PRN Reason: Nausea And Vomiting Pantoprazole Sodium (Protonix) 40 mg PO AC-BID SHAWANDA Last Admin: 04/09/19 08:04 Dose: 40 mg Documented by: Physical examination: VITAL SIGNS: 98.2, 90, 14, 130/81, 98% GENERAL: Sitting up, comfortable EYES: Pupils equal. Conjunctiva pale. HEENT: External appearance of nose and ears normal, oral cavity grossly normal. NECK: JVD not raised; masses not palpable. HEART: First and second heart sounds are normal; no edema. LUNGS: Respiratory rate normal; clear to auscultation. ABDOMEN: Soft, nontender, liver spleen not palpable, no masses palpable. PSYCH: Alert and oriented x3; mood and affect normal. NEUROLOGICAL: Cranial nerves grossly intact; no facial asymmetry, power and sensation grossly intact. LYMPHATICS: No lymph nodes palpable in the axilla and neck INVESTIGATIONS, reviewed in the clinical context: Hemoglobin 10.4 Assessment: -This is a patient who presented recently with acute GI bleed taking NSAIDs EGD and found antral ulcer and patient has received unit of blood on that admission. Patient was recently readmitted given 2 units of blood. Discharge hemoglobin 7.6. Now again presents with decrease in hemoglobin symptomatic. Hemolysis workup was negative. EGD colonoscopy unremarkable. -Obesity BMI 30.7 -GERD -Chronic arthralgias -Colonic diverticulosis -Gastric ulcer and antral erosive gastritis from recent EGD Plan: Patient is awaiting a repeat capsule and no skull. This afternoon. Care was discussed length with the patient his and his mother. If all the workup was negative and is a drop of hemoglobin again patient may have to be moved to [facility], depending on the clinical picture.
[2019-04-10 07:37] LABS: HCT 23.4 % (39.0-53.0); HGB 7.6 gm/dL (13.0-17.5); MCH 30.7 pg (25.0-35.0); MCHC 32.7 g/dL (31.0-37.0); MCV 93.8 fL (80.0-100.0); Mean Platelet Volume 8.8; Platelet Count 257 k/uL (150-450); RBC 2.49 m/uL (4.30-5.90); RDW 13.3 % (11.5-15.5); WBC 7.6 k/uL (3.8-10.6)
[2019-04-10] MEDS: PANTOPRAZOLE 40 MG TABLET PO SCH (09:08)
[2019-04-10 09:28] LABS: Band Neutrophils % 1 %; Eosinophils # (M) 0.23 k/uL (0-0.7); Lymphocytes # (M) 3.57 k/uL (1.0-4.8); Monocytes # (M) 0.53 k/uL (0-1.0); Neutrophils % (M) 43 %; Nucleated Red Blood Cells 0 /100 WBC (0-0); Total Cells Counted 200
[2019-04-10 09:31] LABS: Anisocytosis (M) Present; Poikilocytosis (M) Present
[2019-04-10 12:46] VITALS: BP 122/68; PULSE 77; TEMP 98.5
--- NOTE | 2019-04-10 16:24 | P.PN ---
Subjective Progress Note Date: 04/10/19 Principal diagnosis: anemia Pt seen with mother at bedside. No new c/o today. Feeling better about the work up process. Objective - Vital Signs Vital signs: Vital Signs Temp 98.5 F 04/10/19 11:19 Pulse 77 04/10/19 11:19 Resp 16 04/10/19 11:19 BP 122/68 04/10/19 11:19 Pulse Ox 98 04/10/19 11:19 Intake & Output 04/09/19 04/10/19 04/10/19 18:59 06:59 18:59 Intake Total 560 1010 1200 Balance 560 1010 1200 Intake: IV 200 Oral 360 1010 1200 Other: Voiding Method Toilet Toilet # Voids 2 2 3 - Exam WDWN, NAD, A&Ox4, resp even and unlabored, fully ambulatory - Labs CBC & Chem 7: 04/10/19 06:37 04/06/19 09:24 Labs: Abnormal Lab Results - Last 24 Hours (Table) 04/10/19 Range/Units 06:37 RBC 2.49 L (4.30-5.90) m/uL Hgb 7.6 L (13.0-17.5) gm/dL Hct 23.4 L (39.0-53.0) % Assessment and Plan (1) Symptomatic anemia Narrative/Plan: Overall Hgb is stable. Hematology work up will be completed outpatient along with CBC monitoring and transfusions PRN. F/U appt in chart, further work up out patient. Status: Acute Priority: High Code(s): D64.9 - ANEMIA, UNSPECIFIED SNOMED Code(s): 722299918 (2) Anemia Narrative/Plan: No transfusion today Status: Acute Priority: High Code(s): D64.9 - ANEMIA, UNSPECIFIED SNOMED Code(s): 838853506 Plan: EGD/colon/capsule complete Biopsy no malignancy No evidence of hemolysis Transfuse for Hgb<7 Doctor attests: I performed a history and physical examination of this patient, developed impression and plan of care, discussed with dictator. I agree with dictators note, documented as a scribe.
--- NOTE | 2019-04-10 21:45 | P.DS ---
Providers Date of admission: 04/05/19 12:00 Expected date of discharge: 04/10/19 Attending physician: Umer Perez Consults: 04/05/19 11:46 Consult Physician Urgent Consulting Provider: Umer Kendall Consult Reason/Comments: Anemia unknown cause Do you want consulting provider notified?: Yes Primary care physician: [facility] Course: Hospital course: This is a pleasant 53-year-old patient of Dr. Espinal. Chronic stable medical conditions include GERD, arthralgias, diverticulosis. Patient is urine in the hospital from March 14 through March 16. He then presented feeling weak and tired. Hemoglobin was 7.1. He received a unit of blood. Hemoglobin before discharge was 8. Did undergo EGD by Dr. Cristhian Odom. Found to have 5 mm superficial antral ulcer in the prepyloric area and antral erosive gastritis. Patient having taking NSAIDs. Which she discontinued. Was discharged on PPIs. Patient was readmitted on March 27 and then discharged on March 28. Since hemoglobin have dropped again did receive 2 units of blood. Hemoglobin was 7.6. Patient presents again feeling dizzy lightheaded tired. Rundown. Denies any ductal's. Hemoglobin was down to 6.5. Unit of blood was ordered. GI was consulted. Patient underwent EGD and colonoscopic. Antral ulcer healing well. No other cause for bleeding found.. Apparently results unremarkable. Had small bowel capsule camera study done. Unremarkable but incomplete. Repeat small bowel capsule endoscopy was done. Today-results pending. Patient doing well. Stable. Discussed with the patient and his mother in detail. Will follow with Dr. Ortiz. A further drop in hemoglobin referral to a tertiary center will be done. By Dr. Ortiz. Hemolysis workup was negative by Dr. Kendall. He will follow up at the office. Discussion and discharge planning more than 35 minutes Consultation: Dr. Ortiz from GI Dr. Kendall from hematology Physical examination: VITAL SIGNS: 98.5, 77, 16, 122.68, 98% room air GENERAL: Sitting up, comfortable EYES: Pupils equal. Conjunctiva pale. HEENT: External appearance of nose and ears normal, oral cavity grossly normal. NECK: JVD not raised; masses not palpable. HEART: First and second heart sounds are normal; no edema. LUNGS: Respiratory rate normal; clear to auscultation. ABDOMEN: Soft, nontender, liver spleen not palpable, no masses palpable. PSYCH: Alert and oriented x3; mood and affect normal. INVESTIGATIONS, reviewed in the clinical context: Hemoglobin 7.6 Iron study show iron overload Reticulocyte count is low. Haptoglobin is high. Pathologist review did not show any evidence of schistocytes. Discharge diagnosis: -This is a patient who presented recently with acute GI bleed taking NSAIDs EGD and found antral ulcer and patient has received unit of blood on that admission. Patient was recently readmitted given 2 units of blood. Discharge hemoglobin 7.6. Now again presents with decrease in hemoglobin symptomatic. Hemolysis workup was negative. EGD colonoscopy unremarkable. Initial capsule study unremarkable. Second one was done as the first was not entirely complete. -Obesity BMI 30.7 -GERD -Chronic arthralgias -Colonic diverticulosis -Gastric ulcer and antral erosive gastritis from recent EGD Disposition: Home Patient Condition at Discharge: Stable Plan - Discharge Summary Discharge Rx Participant: No New Discharge Prescriptions: Continue Acetaminophen Tab [Tylenol] 1,000 mg PO Q6HR PRN PRN Reason: Pain Changed Pantoprazole [Protonix] 40 mg PO BID #60 tab Discontinued Ferrous Sulfate [Iron (65 MG Elemental)] 325 mg PO HS Discharge Medication List Acetaminophen Tab [Tylenol] 1,000 mg PO Q6HR PRN 03/27/19 [History] Pantoprazole [Protonix] 40 mg PO BID #60 tab 04/10/19 [Rx] Follow up Appointment(s)/Referral(s): Umer Kendall MD [STAFF PHYSICIAN] - 04/29/19 11:00 am Waqas Espinal DO [Primary Care Provider] - 04/30/19 2:00 pm Stu Rosas MD [STAFF PHYSICIAN] - 05/02/19 4:15 pm Activity/Diet/Wound Care/Special Instructions: cbc on monday Discharge Disposition: HOME SELF-CARE
[2019-04-11 14:19] LABS: Albumin 3.75 g/dL (3.80-4.90); Gamma Globulin 0.48 g/dL (0.70-1.50)
== END 2019-04-10 14:50 | disposition home or self-care (01) | DRG 379 ==
LOC: EC 10:18 → 3NMEDONC 12:00
PROVIDERS: ADMIT Hospitalist; ATTEND Hospitalist
PROC: 0DBF8ZX Excision of Right Large Intestine, Via Natural or Artificial Opening Endoscopic, Diagnostic (ICD-10-PCS; 2019-04-07 09:30)
PROC: 0DBG8ZX Excision of Left Large Intestine, Via Natural or Artificial Opening Endoscopic, Diagnostic (ICD-10-PCS; 2019-04-07 09:30)
PROC: 0DBB8ZX Excision of Ileum, Via Natural or Artificial Opening Endoscopic, Diagnostic (ICD-10-PCS; 2019-04-07 09:30)
PROC: 0DB78ZX Excision of Stomach, Pylorus, Via Natural or Artificial Opening Endoscopic, Diagnostic (ICD-10-PCS; 2019-04-07 09:30)
PROC: 0DB98ZX Excision of Duodenum, Via Natural or Artificial Opening Endoscopic, Diagnostic (ICD-10-PCS; 2019-04-07 09:30)
PROC: 0DBK8ZZ Excision of Ascending Colon, Via Natural or Artificial Opening Endoscopic (ICD-10-PCS; 2019-04-07 09:30)
PROC: 30233N1 Transfusion of Nonautologous Red Blood Cells into Peripheral Vein, Percutaneous Approach (ICD-10-PCS; principal; 2019-04-08)
PROC: 0DJ07ZZ Inspection of Upper Intestinal Tract, Via Natural or Artificial Opening (ICD-10-PCS; 2019-04-09)
DX: K25.4 Chronic or unspecified gastric ulcer with hemorrhage (principal); D50.9 Iron deficiency anemia, unspecified; E66.9 Obesity, unspecified; J45.909 Unspecified asthma, uncomplicated; K21.9 Gastro-esophageal reflux disease without esophagitis; K29.60 Other gastritis without bleeding; K57.30 Diverticulosis of large intestine without perforation or abscess without bleeding; K63.5 Polyp of colon; Z68.30 Body mass index [BMI] 30.0-30.9, adult; Z79.899 Other long term (current) drug therapy; Z80.9 Family history of malignant neoplasm, unspecified; Z82.3 Family history of stroke; Z82.49 Family history of ischemic heart disease and other diseases of the circulatory system; Z83.3 Family history of diabetes mellitus; Z87.11 Personal history of peptic ulcer disease; Z87.891 Personal history of nicotine dependence
CPT/HCPCS: 36415; 43235; 43239; 45380; 45385; 80048; 80053; 82607; 82728; 82746; 83010; 83540; 83550; 83615; 84165; 84466; 85025; 85027; 85045; 85610; 85730; 86850; 86900; 86901; 86920; 88305; 91110; 99284

== ENCOUNTER → 2019-04-05 | Outpatient (CLI) | payer BC ==
[2019-04-05 09:32] LABS: HCT 20.3 % (39.0-53.0); MCH 29.9 pg (25.0-35.0); MCHC 32.5 g/dL (31.0-37.0); MCV 91.9 fL (80.0-100.0); Mean Platelet Volume 8.4; Platelet Count 284 k/uL (150-450); RBC 2.21 m/uL (4.30-5.90); RDW 13.4 % (11.5-15.5)
[2019-04-05 09:38] LABS: HGB 6.6 gm/dL (13.0-17.5)
[2019-04-05 11:14] LABS: Eosinophils # (M) 0.18 k/uL (0-0.7); Monocytes # (M) 0.27 k/uL (0-1.0); Neutrophils % (M) 35 %; Nucleated Red Blood Cells 0 /100 WBC (0-0); Total Cells Counted 100
[2019-04-05 18:20] LABS: Ferritin 408.5 ng/mL (22.0-322.0); Iron Saturation 90.26 (15.00-50.00)
== END | disposition home or self-care (01) ==
LOC: LABWHC1 08:48
PROVIDERS: ATTEND Nurse Practitioner
DX: D64.9 Anemia, unspecified (principal)
CPT/HCPCS: 36415; 82728; 83540; 83550; 85025

== ENCOUNTER 2019-04-24 16:54 | Inpatient (IN) | payer BC ==
[2019-04-24] MEDS ORDERED: PANTOPRAZOLE 40 MG/10 ML VIAL IVP ONE (17:18)
[2019-04-24 17:39] LABS: African American GFR (CKD) >90 (>60 ml/min/1.73 sqM); Anion Gap 8 mmol/L; Blood Urea Nitrogen 20 mg/dL (9-20); Calcium 9.4 mg/dL (8.4-10.2); Carbon Dioxide 24 mmol/L (22-30); Chloride 106 mmol/L (98-107); Glucose 127 mg/dL (74-99); Non-African American GFR(CKD) >90 (>60 ml/min/1.73 sqM); Sodium 138 mmol/L (137-145)
[2019-04-24 17:41] LABS: Glucose,Whole Blood 126 mg/dL (75-99)
[2019-04-24 17:46] LABS: Partial Thromboplastin Time 22.8 sec (22.0-30.0); Prothrombin Time 10.5 sec (9.0-12.0)
--- NOTE | 2019-04-24 17:49 | ED ---
General Adult HPI - General Chief complaint: Recheck/Abnormal Lab/Rx Stated complaint: Abn labs Time Seen by Provider: 04/24/19 17:07 Source: patient Mode of arrival: ambulatory Limitations: no limitations - History of Present Illness Initial comments: Dictation was produced using [employer] dictation software. please excuse any grammatical, word or spelling errors. Chief Complaint: 53-year-old male sent in by lifts and cranes inspector for anemia. History of Present Illness: [id number] male he was diagnosed with anemia several weeks ago. Patient has been in another emergency Department multiple occasions for anemia. Patient states he had extensive workup for finding cause of his anemia. He had been evaluated by gastroenterology had upper and lower endoscopy. Patient states he also had Endoscopy without Any Clear Evidence for Why He Is Anemic. Patient States He's Been Feeling Slightly Lethargic over the Last Several Days. He Went to Go See His Rn Orthopaedics Today. Labs Drawn on Be Anemic with a Hemoglobin of 5.5. Patient has no other complaints at this time. No abdominal pain. No black stools. No nausea vomiting. The ROS documented in this emergency department record has been reviewed and confirmed by me. Those systems with pertinent positive or negative responses have been documented in the HPI. All other systems are other negative and/or noncontributory. PHYSICAL EXAM: General Impression: Alert and oriented x3, not in acute distress HEENT: Normocephalic atraumatic, extra-ocular movements intact, pupils equal and reactive to light bilaterally, mucous membranes moist, pale, subconjunctival paler Cardiovascular: Heart regular rate and rhythm, S1&S2 audible, no murmurs, rubs or gallops Chest: Lungs clear to auscultation bilaterally, no rhonchi, no wheeze, no rales Abdomen: Bowel sounds present, abdomen soft, non-tender, non-distended, no organomegaly Musculoskeletal: Pulses present and equal in all extremities, no peripheral edema Motor: no focal deficits noted Neurological: CN II-XII grossly intact, no focal motor or sensory deficits noted Skin: Intact with no visualized rashes Psych: Normal affect and mood ED course: 53-year-old male presents with outpatient hemoglobin of 5.5. He was sent in by lifts and cranes inspector presumably for blood transfusion. Signs upon arrival shows heart rate of 120, rest of vital signs within acceptable limits. Laboratory evaluation obtained. Hemoglobin 6.1. Rest of CBC is unremarkable. Coag panel, metabolic panel is negative. Patient ordered for transfusion of blood. Patient will be admitted to Dr. Perez with hematology consult. EKG interpretation: Ventricular rate 106, sinus tachycardia, IA interval 162, care is 82, QTC 470. No IA prolongation, no QTC prolongation, no ST or T-wave changes noted. . Overall, this EKG is unremarkable - Related Data Home Medications Medication Instructions Recorded Confirmed Acetaminophen Tab [Tylenol] 500 mg PO Q6HR PRN 03/27/19 04/24/19 Ferrous Sulfate [Feosol] 325 mg PO HS 04/24/19 04/24/19 Multivitamins, Thera [Multivitamin 1 tab PO DAILY 04/24/19 04/24/19 (formulary)] Pantoprazole [Protonix] 40 mg PO DAILY 04/24/19 04/24/19 Allergies Allergy/AdvReac Type Severity Reaction Status Date / Time Penicillins Allergy Unknown Verified 04/24/19 18:03 Childhood prednisone Allergy Rash/Hives Verified 04/24/19 18:03 ibuprofen AdvReac Unknown Verified 04/24/19 18:03 shellfish derived [Shellfish] AdvReac "BPDY FELT Verified 04/24/19 18:03 LIKE IT FELL ASLEEP" Review of Systems ROS Statement: Those systems with pertinent positive or pertinent negative responses have been documented in the HPI. ROS Other: All systems not noted in ROS Statement are negative. Past Medical History Past Medical History: Asthma, GERD/Reflux, Osteoarthritis (OA), Pneumonia Additional Past Medical History / Comment(s): Recurrent anemia, small stomach ulcer, negative stool for OBs, past gallstones-pt states he was very ill and had liver involvement, diverticular disease, arthritis in multiple joints, chronic pain, occasional headaches. History of Any Multi-Drug Resistant Organisms: None Reported Past Surgical History: Cholecystectomy Additional Past Surgical History / Comment(s): EGD, colonoscopy Past Anesthesia/Blood Transfusion Reactions: No Reported Reaction Past Psychological History: No Psychological Hx Reported Smoking Status: Former smoker Past Alcohol Use History: None Reported Past Drug Use History: None Reported - Past Family History Mother Family Medical History: Diabetes Mellitus Additional Family Medical History / Comment(s): diet controlled diabetic Father Family Medical History: Cancer, CVA/TIA, Myocardial Infarction (MT) Additional Family Medical History / Comment(s): Multiple types of cancer, CVAs, MIs with first MT in his late 40s or early 50s. General Exam Limitations: no limitations Course Vital Signs 04/24/19 04/24/19 04/24/19 17:02 17:37 18:56 Temperature 98.6 F Pulse Rate 128 H 106 H 101 H Respiratory 22 18 18 Rate Blood Pressure 121/71 123/72 O2 Sat by Pulse 100 99 Oximetry Medical Decision Making - Lab Data Result diagrams: 04/24/19 17:15 04/24/19 17:15 Lab Results 04/24/19 04/24/19 04/24/19 Range/Units 17:15 17:15 17:15 WBC 10.3 (3.8-10.6) k/uL RBC 1.96 L (4.30-5.90) m/uL Hgb 6.1 L* D (13.0-17.5) gm/dL Hct 17.4 L* (39.0-53.0) % MCV 88.8 D (80.0-100.0) fL MCH 31.0 (25.0-35.0) pg MCHC 34.9 (31.0-37.0) g/dL RDW 12.9 (11.5-15.5) % Plt Count 366 (150-450) k/uL Neutrophils % (Manual) 28 % Lymphocytes % (Manual) 63 % Monocytes % (Manual) 4 % Eosinophils % (Manual) 5 % Neutrophils # (Manual) 2.88 (1.3-7.7) k/uL Lymphocytes # (Manual) 6.49 H (1.0-4.8) k/uL Monocytes # (Manual) 0.41 (0-1.0) k/uL Eosinophils # (Manual) 0.52 (0-0.7) k/uL Nucleated RBCs 0 (0-0) /100 WBC Manual Slide Review Performed Poikilocytosis (manual Present Ovalocytes Present PT 10.5 (9.0-12.0) sec INR 1.0 (<1.2) APTT 22.8 (22.0-30.0) sec Sodium 138 (137-145) mmol/L Potassium 4.0 (3.5-5.1) mmol/L Chloride 106 (98-107) mmol/L Carbon Dioxide 24 (22-30) mmol/L Anion Gap 8 mmol/L BUN 20 (9-20) mg/dL Creatinine 0.86 (0.66-1.25) mg/dL Est GFR (CKD-EPI)AfAm >90 (>60 ml/min/1.73 sqM) Est GFR (CKD-EPI)NonAf >90 (>60 ml/min/1.73 sqM) Glucose 127 H (74-99) mg/dL POC Glucose (mg/dL) (75-99) mg/dL POC Glu Nail Feeder ID Calcium 9.4 (8.4-10.2) mg/dL 04/24/19 Range/Units 17:39 WBC (3.8-10.6) k/uL RBC (4.30-5.90) m/uL Hgb (13.0-17.5) gm/dL Hct (39.0-53.0) % MCV (80.0-100.0) fL MCH (25.0-35.0) pg MCHC (31.0-37.0) g/dL RDW (11.5-15.5) % Plt Count (150-450) k/uL Neutrophils % (Manual) % Lymphocytes % (Manual) % Monocytes % (Manual) % Eosinophils % (Manual) % Neutrophils # (Manual) (1.3-7.7) k/uL Lymphocytes # (Manual) (1.0-4.8) k/uL Monocytes # (Manual) (0-1.0) k/uL Eosinophils # (Manual) (0-0.7) k/uL Nucleated RBCs (0-0) /100 WBC Manual Slide Review Poikilocytosis (manual Ovalocytes PT (9.0-12.0) sec INR (<1.2) APTT (22.0-30.0) sec Sodium (137-145) mmol/L Potassium (3.5-5.1) mmol/L Chloride (98-107) mmol/L Carbon Dioxide (22-30) mmol/L Anion Gap mmol/L BUN (9-20) mg/dL Creatinine (0.66-1.25) mg/dL Est GFR (CKD-EPI)AfAm (>60 ml/min/1.73 sqM) Est GFR (CKD-EPI)NonAf (>60 ml/min/1.73 sqM) Glucose (74-99) mg/dL POC Glucose (mg/dL) 126 H (75-99) mg/dL POC Glu Nail Feeder ID Rosaura Evans Calcium (8.4-10.2) mg/dL Disposition Clinical Impression: Anemia Disposition: ADMITTED IP TO THIS HOSP Condition: Fair Referrals: Waqas Espinal DO [Primary Care Provider] - 1-2 days Decision Time: 19:07
[2019-04-24 18:06] LABS: MCHC 34.9 g/dL (31.0-37.0); MCV 88.8 fL (80.0-100.0); Mean Platelet Volume 7.8; Platelet Count 366 k/uL (150-450); RBC 1.96 m/uL (4.30-5.90); RDW 12.9 % (11.5-15.5); WBC 10.3 k/uL (3.8-10.6)
[2019-04-24 18:10] LABS: HCT 17.4 % (39.0-53.0); HGB 6.1 gm/dL (13.0-17.5)
[2019-04-24 18:46] LABS: Eosinophils # (M) 0.52 k/uL (0-0.7); Lymphocytes # (M) 6.49 k/uL (1.0-4.8); Monocytes # (M) 0.41 k/uL (0-1.0); Neutrophils # (M) 2.88 k/uL (1.3-7.7); Neutrophils % (M) 28 %; Nucleated Red Blood Cells 0 /100 WBC (0-0); Total Cells Counted 100
[2019-04-24 18:47] LABS: Ovalocytes Present; Poikilocytosis (M) Present
[2019-04-24] MEDS ORDERED: NALOXONE 0.4 MG/ML 1 ML VIAL IV PRN (19:00)
[2019-04-24] MEDS ORDERED: SODIUM CHLORIDE 0.9% 1,000 ML IV SCH (19:00)
[2019-04-24] MEDS ORDERED: ACETAMINOPHEN TAB 500 MG TAB PO PRN (19:04)
[2019-04-24] MEDS ORDERED: FERROUS SULFATE 325 MG TAB PO SCH (21:00)
[2019-04-25] MEDS ORDERED: PANTOPRAZOLE 40 MG TABLET PO SCH (09:00)
[2019-04-25] MEDS ORDERED: MULTIVITAMINS, THERA 1 EACH TAB PO SCH (09:00)
[2019-04-25 10:10] LABS: MCH 30.1 pg (25.0-35.0); MCHC 33.5 g/dL (31.0-37.0); Mean Platelet Volume 9.6; Platelet Count 265 k/uL (150-450); RBC 2.06 m/uL (4.30-5.90); RDW 13.2 % (11.5-15.5); WBC 8.1 k/uL (3.8-10.6)
[2019-04-25 10:16] LABS: HCT 18.6 % (39.0-53.0); HGB 6.2 gm/dL (13.0-17.5)
[2019-04-25 10:29] LABS: Eosinophils # (M) 0.41 k/uL (0-0.7); Lymphocytes # (M) 4.46 k/uL (1.0-4.8); Monocytes # (M) 0.41 k/uL (0-1.0); Neutrophils # (M) 2.84 k/uL (1.3-7.7); Neutrophils % (M) 35 %; Nucleated Red Blood Cells 0 /100 WBC (0-0); Total Cells Counted 100
[2019-04-25 10:30] LABS: Poikilocytosis (M) Present
[2019-04-25 15:09] VITALS: RESP 16
[2019-04-25 16:50] VITALS: BP 115/78; PULSE 89; TEMP 97.8
--- NOTE | 2019-04-25 17:47 | P.CONS ---
History of Present Illness - Reason for Consult Consult date: 04/25/19 Anemia - History of Present Illness 53-year-old gentleman, Initially seen in consult on 04/06/19, with a past medical history of GERD, arthralgias, diverticulosis, with a history of anemia ongoing for the last 1 month for which he has been evaluated as outpatient, as well as the patient had a colonoscopy a year ago and did undergo endoscopy recently and was found to have 5 mm superficial antral ulcer and prep yloric area in the gastrohepatic. Patient does have a history of taking anti- inflammatory drugs. The patient was admitted with significant lightheadedness feeling fatigued and tired and run down all the time. At the time of admission the hemoglobin was 6.5 . He received PRBC. GI was consulted and endoscopy colonoscopy and possibly Capsule endoscopy has been completed. 04.06.19-04.09.19. During Hospitalization EGD and COlonoscopy revealed old healing antrum ulcers, no new or old blood seen. Hematology we consulted for further evaluation of anemia. No visual s/s bleeding. Symptomatic increased SOB. Hgb in October = 14. Given the rapid drop in hemoglobin, as well as endoscopy findings, it is felt th at blood loss was a likely etiology for his anemia. His iron studies were all elevated, but were difficult to interpret as they were performed after blood transfusion. Interestingly, the patient also gave a family history of hemochromatosis.. He had never been tested for the same. It was therefore felt further that blood loss cannot be ruled out, as the patient's baseline iron indices may have been much higher than those noted in the hospital. It was therefore decided to follow him as an outpatient. He did have workup for other causes of anemia which were negative. The patient's hemoglobin continued to be low, and was actually 5.5 in the office on 04/24/19. He was therefore sent in for transfusion. In the ER hemoglobin of 6.1. As this was after hours the patient was admitted for transfusion. He did receive 1 unit. Consult was placed for further evaluation and recommendations The patient didn't complain of feeling somewhat more fatigued prior to this admission as well as palpitations on exertion. He stated that he felt much better after the transfusion, and IV hydration Review of Systems Constitutional: Reports fatigue Eyes: denies blurred vision, denies pain Ears: deny: decreased hearing, ear discharge, earache, tinnitus Ears, nose, mouth and throat: Denies headache, Denies sore throat Cardiovascular: Reports decreased exercise tolerance, Reports palpitations Respiratory: Denies cough Gastrointestinal: Denies abdominal pain, Denies diarrhea, Denies nausea, Denies vomiting Genitourinary: Reports as per HPI Musculoskeletal: Denies myalgias Integumentary: Denies pruritus, Denies rash Neurological: Reports weakness Psychiatric: Denies anxiety, Denies depression Endocrine: Reports fatigue, Denies weight change Hematologic/Lymphatic: Reports as per HPI Past Medical History Past Medical History: Asthma, GERD/Reflux, Osteoarthritis (OA), Pneumonia Additional Past Medical History / Comment(s): Recurrent anemia, small stomach u lcer, negative stool for OBs, past gallstones-pt states he was very ill and had liver involvement, diverticular disease, arthritis in multiple joints, chronic pain, occasional headaches. History of Any Multi-Drug Resistant Organisms: None Reported Past Surgical History: Cholecystectomy Additional Past Surgical History / Comment(s): EGD, colonoscopy Past Anesthesia/Blood Transfusion Reactions: No Reported Reaction Past Psychological History: No Psychological Hx Reported Additional Psychological History / Comment(s): Pt and his spouse reside with pt's mother to assist her with things. He is independent. Smoking Status: Former smoker Past Alcohol Use History: None Reported Additional Past Alcohol Use History / Comment(s): Pt started smoking as a teen and quit in 2010 Past Drug Use History: None Reported - Past Family History Mother Family Medical History: Diabetes Mellitus Additional Family Medical History / Comment(s): diet controlled diabetic Father Family Medical History: Cancer, CVA/TIA, Myocardial Infarction ([place]) Additional Family Medical History / Comment(s): Multiple types of cancer, CVAs, MIs with first [place] in his late 40s or early 50s. Medications and Allergies Home Medications Medication Instructions Recorded Confirmed Type Acetaminophen Tab [Tylenol] 500 mg PO Q6HR PRN 03/27/19 04/24/19 History Ferrous Sulfate [Iron (65 MG 325 mg PO HS 04/24/19 04/24/19 History Elemental)] Multivitamins, Thera [Multivitamin 1 tab PO DAILY 04/24/19 04/24/19 History (formulary)] Pantoprazole [Protonix] 40 mg PO DAILY 04/24/19 04/24/19 History Allergies Allergy/AdvReac Type Severity Reaction Status Date / Time Penicillins Allergy Unknown Verified 04/24/19 18:03 Childhood prednisone Allergy Rash/Hives Verified 04/24/19 18:03 ibuprofen AdvReac Unknown Verified 04/24/19 18:03 shellfish derived [Shellfish] AdvReac "BPDY FELT Verified 04/24/19 18:03 LIKE IT FELL ASLEEP" Physical Exam Vitals: Vital Signs Temp Pulse Pulse Resp BP BP Pulse Ox 04/25/19 16:30 97.8 F 89 115/78 98 04/25/19 15:00 98.1 F 93 16 149/73 98 04/25/19 14:44 95 17 116/75 97 04/25/19 14:14 98 17 129/77 98 04/25/19 14:04 98.1 F 99 123/76 04/25/19 07:00 98.7 F 86 16 116/74 100 04/25/19 02:03 98.5 F 104 H 19 123/79 100 04/24/19 23:46 98.2 F 84 16 107/68 04/24/19 23:44 98.2 F 91 16 116/71 04/24/19 23:36 98.0 F 87 16 105/68 04/24/19 22:19 98.1 F 93 16 112/70 100 04/24/19 21:26 98.1 F 95 16 117/72 100 04/24/19 20:56 98.0 F 86 16 115/76 99 04/24/19 20:46 98.4 F 86 16 115/67 99 04/24/19 20:39 97.8 F 93 16 112/63 04/24/19 19:50 98.2 F 108 H 16 114/68 100 04/24/19 19:21 98.3 F 102 H 19 152/76 98 04/24/19 18:56 101 H 18 123/72 99 04/24/19 17:37 106 H 18 Intake and Output 04/25/19 04/25/19 04/25/19 06:59 14:59 22:59 Intake Total 310 0 310 Balance 310 0 310 Intake: Blood Product 310 0 310 Rc As-1 Unit 0 310 [id number] Rc Pheresis 2 As3 Unit 310 [id number] Other: # Voids 1 1 - Constitutional General appearance: no acute distress - EENT Eyes: EOMI, PERRLA ENT: hearing grossly normal, normal oropharynx - Neck Neck: no lymphadenopathy Thyroid: bilateral: normal size - Respiratory Respiratory: bilateral: CTA - Cardiovascular Rhythm: regular Heart sounds: normal: S1, S2 - Gastrointestinal General gastrointestinal: normal bowel sounds, soft - Integumentary Integumentary: normal - Neurologic Neurologic: CNII-XII intact - Musculoskeletal Musculoskeletal: generalized weakness, strength equal bilaterally - Psychiatric Psychiatric: A&O x's 3, appropriate affect Results CBC & Chem 7: 04/25/19 09:54 04/24/19 17:15 Labs: Abnormal Lab Results - Last 24 Hours (Table) 04/24/19 04/24/19 04/24/19 Range/Units 17:15 17:15 17:15 RBC 1.96 L (4.30-5.90) m/uL Hgb 6.1 L* D (13.0-17.5) gm/dL Hct 17.4 L* (39.0-53.0) % Lymphocytes # (Manual) 6.49 H (1.0-4.8) k/uL Glucose 127 H (74-99) mg/dL POC Glucose (mg/dL) (75-99) mg/dL Crossmatch See Detail 04/24/19 04/25/19 Range/Units 17:39 09:54 RBC 2.06 L (4.30-5.90) m/uL Hgb 6.2 L* (13.0-17.5) gm/dL Hct 18.6 L* (39.0-53.0) % Lymphocytes # (Manual) (1.0-4.8) k/uL Glucose (74-99) mg/dL POC Glucose (mg/dL) 126 H (75-99) mg/dL Crossmatch Assessment and Plan (1) Anemia Narrative/Plan: The etiology of this is not clear. Given the rapid change in hemoglobin from baseline, it was felt that blood loss was most likely, which is supported by the endoscopy findings. Hemolysis workup was negative. In addition the patient's WBC and platelets were normal , which would itzel a major bone marrow process less likely. - His iron studies did not fit the picture of blood loss, but were clouded by multiple transfusions, as well as the possibility of hereditary hemochromatosis. - The patient has not had any obvious bleeding since his prior admissions. His ferritin levels were reviewed and actually showed an increase. However hemoglobin has not increased and in fact has shown a decline, into the 5 range. - The above, and implications were discussed in detail with the patient. It was felt that at this time we should proceed with a bone marrow aspiration biopsy to rule out a primary marrow cause potentially affecting the red cell line only. The procedure was discussed in detail. The patient was agreeable to proceed. This will be scheduled by the office. - The patient feels much better after transfusion. If hemoglobin is greater than 7, he can be discharged home from our standpoint and have the bone marrow as an outpatient. Status: Acute Priority: High Code(s): D64.9 - ANEMIA, UNSPECIFIED SNOMED Code(s): 592874161 (2) Weakness Narrative/Plan: Appears to be related to anemia. As noted, the patient is symptomatically improved After transfusion and hydration Status: Acute Code(s): R53.1 - WEAKNESS SNOMED Code(s): 29432180
--- NOTE | 2019-04-25 20:51 | P.HPIM ---
History of Present Illness H&P Date: 04/25/19 Chief Complaint: Tired Chief Complaint: Symptomatic anemia History of presenting complaint: This is a pleasant 53-year-old patient of Dr. Espinal. Chronic stable medical conditions include GERD, arthralgias, diverticulosis. Patient is urine in the hospital from March 14 through March 16. He then presented feeling weak and tired. Hemoglobin was 7.1. He received a unit of blood. Hemoglobin before discharge was 8. Did undergo EGD by Dr. Cristhian Odom. Found to have 5 mm superficial antral ulcer in the prepyloric area and antral erosive gastritis. Patient having taking NSAIDs. Which she discontinued. Was discharged on PPIs. Patient was readmitted on March 27 and then discharged on March 28. Since hemoglobin have dropped again did receive 2 units of blood. Hemoglobin was 7.6. April 05 presents again feeling dizzy lightheaded tired. Rundown. Hemoglobin was down to 6.5. Unit of blood was ordered. GI was consulted. Patient underwent EGD and colonoscopic. Antral ulcer healing well. No other cause for bleeding found.. Had small bowel capsule camera study done. Unremarkable but incomplete. Repeat small bowel capsule endoscopy was done. No new abnormality was found. Hemolysis workup was negative by Dr. Kendall. Patient was discharged on April 10. Hemoglobin was 7.6. 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 Found to be hemoglobin of 5.5. Sent to the ER. Hemoglobin and found to be 6.1. One unit of blood was ordered. Feeling weak and tired. No chest pain no palpitation. Review of systems: GEN.: Tired with activity EYES: None HEENT: None NECK: None RESPIRATORY: None CARDIOVASCULAR: None GASTROINTESTINAL: None GENITOURINARY: None MUSCULOSKELETAL: Achiness in the joints LYMPHATICS: None HEMATOLOGICAL: None PSYCHIATRY: None NEUROLOGICAL: None Social history: , smoked off and on for about 28 years, stopped in 2010. 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 Family history: Diabetes Physical examination: VITAL SIGNS: 98.1, 95, 16, 11 7/72, 100% room air GENERAL: BMI 31.7, sitting up EYES: Pupils equal. Conjunctiva pale. HEENT: External appearance of nose and ears normal, oral cavity grossly normal. NECK: JVD not raised; masses not palpable. HEART: First and second heart sounds are normal; no edema. LUNGS: Respiratory rate normal; clear to auscultation. ABDOMEN: Soft, nontender, liver spleen not palpable, no masses palpable. PSYCH: Alert and oriented x3; mood and affect normal. NEUROLOGICAL: Cranial nerves grossly intact; no facial asymmetry, power and sensation grossly intact. LYMPHATICS: No lymph nodes palpable in the axilla and neck INVESTIGATIONS, reviewed in the clinical context: Hemoglobin 6.1 on presentation it was 7.6 on 04/10/2019 Assessment: -Patient admitted with recurrent symptomatic anemia found to have gastric ulcer and antral erosive gastritis. Initial workup including colonoscope small bowel ENDOSCOPY all been negative.. -Obesity BMI 30.7 -GERD -Chronic arthralgias -Colonic diverticulosis -Gastric ulcer and antral erosive gastritis from recent EGD Plan: Patient did get a unit of blood loss that. Hemoglobin this morning 6.2. Another unit of blood as been ordered. Patient is due for his bone marrow bio psy tomorrow. Care was discussed left with the patient his and his mother. Questions were answered. Past Medical History Past Medical History: Asthma, GERD/Reflux, Osteoarthritis (OA), Pneumonia Additional Past Medical History / Comment(s): Recurrent anemia, small stomach ulcer, negative stool for OBs, past gallstones-pt states he was very ill and had liver involvement, diverticular disease, arthritis in multiple joints, chronic pain, occasional headaches. History of Any Multi-Drug Resistant Organisms: None Reported Past Surgical History: Cholecystectomy Additional Past Surgical History / Comment(s): EGD, colonoscopy Past Anesthesia/Blood Transfusion Reactions: No Reported Reaction Past Psychological History: No Psychological Hx Reported Additional Psychological History / Comment(s): Pt and his spouse reside with pt's mother to assist her with things. He is independent. Smoking Status: Former smoker Past Alcohol Use History: None Reported Additional Past Alcohol Use History / Comment(s): Pt started smoking as a teen and quit in 2010 Past Drug Use History: None Reported - Past Family History Mother Family Medical History: Diabetes Mellitus Additional Family Medical History / Comment(s): diet controlled diabetic Father Family Medical History: Cancer, CVA/TIA, Myocardial Infarction ([place]) Additional Family Medical History / Comment(s): Multiple types of cancer, CVAs, MIs with first [place] in his late 40s or early 50s. Medications and Allergies Home Medications Medication Instructions Recorded Confirmed Type Acetaminophen Tab [Tylenol] 500 mg PO Q6HR PRN 03/27/19 04/24/19 History Ferrous Sulfate [Iron (65 MG 325 mg PO HS 04/24/19 04/24/19 History Elemental)] Multivitamins, Thera [Multivitamin 1 tab PO DAILY 04/24/19 04/24/19 History (formulary)] Pantoprazole [Protonix] 40 mg PO DAILY 04/24/19 04/24/19 History Allergies Allergy/AdvReac Type Severity Reaction Status Date / Time Penicillins Allergy Unknown Verified 04/24/19 18:03 Childhood prednisone Allergy Rash/Hives Verified 04/24/19 18:03 ibuprofen AdvReac Unknown Verified 04/24/19 18:03 shellfish derived [Shellfish] AdvReac "BPDY FELT Verified 04/24/19 18:03 LIKE IT FELL ASLEEP" Physical Exam Vitals: Vital Signs Temp Pulse Pulse Resp BP BP Pulse Ox 04/25/19 07:00 98.7 F 86 16 116/74 100 04/25/19 02:03 98.5 F 104 H 19 123/79 100 04/24/19 23:46 98.2 F 84 16 107/68 04/24/19 23:44 98.2 F 91 16 116/71 04/24/19 23:36 98.0 F 87 16 105/68 04/24/19 22:19 98.1 F 93 16 112/70 100 04/24/19 21:26 98.1 F 95 16 117/72 100 04/24/19 20:56 98.0 F 86 16 115/76 99 04/24/19 20:46 98.4 F 86 16 115/67 99 04/24/19 20:39 97.8 F 93 16 112/63 04/24/19 19:50 98.2 F 108 H 16 114/68 100 04/24/19 19:21 98.3 F 102 H 19 152/76 98 04/24/19 18:56 101 H 18 123/72 99 04/24/19 17:37 106 H 18 04/24/19 17:02 98.6 F 128 H 22 121/71 100 Intake and Output 04/24/19 04/25/19 04/25/19 22:59 06:59 14:59 Intake Total 0 310 Balance 0 310 Intake: Blood Product 0 310 Rc Pheresis 2 As3 Unit 0 310 [id number] Other: Voiding Method Toilet Urinal # Voids 1 1 Weight 102.965 kg Results CBC & Chem 7: 04/25/19 09:54 04/24/19 17:15 Labs: Abnormal Lab Results - Last 24 Hours (Table) 04/24/19 04/24/19 04/24/19 Range/Units 17:15 17:15 17:15 RBC 1.96 L (4.30-5.90) m/uL Hgb 6.1 L* D (13.0-17.5) gm/dL Hct 17.4 L* (39.0-53.0) % Lymphocytes # (Manual) 6.49 H (1.0-4.8) k/uL Glucose 127 H (74-99) mg/dL POC Glucose (mg/dL) (75-99) mg/dL Crossmatch See Detail 04/24/19 Range/Units 17:39 RBC (4.30-5.90) m/uL Hgb (13.0-17.5) gm/dL Hct (39.0-53.0) % Lymphocytes # (Manual) (1.0-4.8) k/uL Glucose (74-99) mg/dL POC Glucose (mg/dL) 126 H (75-99) mg/dL Crossmatch Thrombosis Risk Factor Assmnt - Choose All That Apply Each Factor Represents 1 point: Age 41-60 years Other Risk Factors: No Other congenital or acquired thrombophilia - If yes, enter type in comment: No Thrombosis Risk Factor Assessment Total Risk Factor Score: 1 Thrombosis Risk Factor Assessment Level: Low Risk
--- NOTE | 2019-04-25 20:54 | P.DS ---
Providers Date of admission: 04/24/19 19:00 Expected date of discharge: 04/25/19 Attending physician: Umer Perez Consults: 04/24/19 19:06 Consult Physician Routine Consulting Provider: Umer Kendall Consult Reason/Comments: anemia Do you want consulting provider notified?: Yes 04/25/19 10:12 Consult Physician Routine Consulting Provider: Stu Rosas Consult Reason/Comments: gi bleed Do you want consulting provider notified?: Yes Primary care physician: Waqas Espinal [facility] Course: Chief Complaint: Tired Chief Complaint: Symptomatic anemia Hospital course: This is a pleasant 53-year-old patient of Dr. Espinal. Chronic stable medical conditions include GERD, arthralgias, diverticulosis. Patient is urine in the hospital from March 14 through March 16. He then presented feeling weak and tired. Hemoglobin was 7.1. He received a unit of blood. Hemoglobin before discharge was 8. Did undergo EGD by Dr. Cristhian Odom. Found to have 5 mm superficial antral ulcer in the prepyloric area and antral erosive gastritis. Patient having taking NSAIDs. Which she discontinued. Was discharged on PPIs. Patient was readmitted on March 27 and then discharged on March 28. Since hemoglobin have dropped again did receive 2 units of blood. Hemoglobin was 7.6. April 05 presents again feeling dizzy lightheaded tired. Rundown. Hemoglobin was down to 6.5. Unit of blood was ordered. GI was consulted. Patient underwent EGD and colonoscopic. Antral ulcer healing well. No other cause for bleeding found.. Had small bowel capsule camera study done. Unremarkable but incomplete. Repeat small bowel capsule endoscopy was done. No new abnormality was found. Hemolysis workup was negative by Dr. Kendall. Patient was discharged on April 10. Hemoglobin was 7.6. 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 Found to be hemoglobin of 5.5. Sent to the ER. Hemoglobin and found to be 6.1. Patient was given 2 units of blood. Discharge after that. Patient due for a bone marrow biopsy tomorrow. Discussed with Dr. Kendall. No further evidence of GI bleed.. Consultation: Dr. Kendall from hematology Dr. Ortiz from GI Physical examination: VITAL SIGNS: 98.1, 93, 16, 149/73, 98% room air GENERAL: BMI 31.7, sitting up EYES: Pupils equal. Conjunctiva pale. HEENT: External appearance of nose and ears normal, oral cavity grossly normal. NECK: JVD not raised; masses not palpable. HEART: First and second heart sounds are normal; no edema. LUNGS: Respiratory rate normal; clear to auscultation. ABDOMEN: Soft, nontender, liver spleen not palpable, no masses palpable. PSYCH: Alert and oriented x3; mood and affect normal. INVESTIGATIONS, reviewed in the clinical context: Hemoglobin 6.1 on presentation it was 7.6 on 04/10/2019 Discharge diagnosis: -Patient admitted with recurrent symptomatic anemia found to have gastric ulcer and antral erosive gastritis. Initial workup including colonoscope small bowel ENDOSCOPY all been negative.. -Obesity BMI 30.7 -GERD -Chronic arthralgias -Colonic diverticulosis -Gastric ulcer and antral erosive gastritis from recent EGD Disposition: Home Patient Condition at Discharge: Fair Plan - Discharge Summary Discharge Rx Participant: Yes New Discharge Prescriptions: Continue Acetaminophen Tab [Tylenol] 500 mg PO Q6HR PRN PRN Reason: Pain Multivitamins, Thera [Multivitamin (formulary)] 1 tab PO DAILY Ferrous Sulfate [Iron (65 MG Elemental)] 325 mg PO HS Pantoprazole [Protonix] 40 mg PO DAILY Discharge Medication List Acetaminophen Tab [Tylenol] 500 mg PO Q6HR PRN 03/27/19 [History] Ferrous Sulfate [Iron (65 MG Elemental)] 325 mg PO HS 04/24/19 [History] Multivitamins, Thera [Multivitamin (formulary)] 1 tab PO DAILY 04/24/19 [History] Pantoprazole [Protonix] 40 mg PO DAILY 04/24/19 [History] Follow up Appointment(s)/Referral(s): Umer Kendall MD [STAFF PHYSICIAN] - 04/29/19 11:00 am Waqas Espinal DO [Primary Care Provider] - 05/07/19 1:20 pm Patient Instructions/Handouts: Anemia (DC) Activity/Diet/Wound Care/Special Instructions: Bone marrow test scheduled tomorrow, April 26 at 12pm at [facility]. Discharge Disposition: HOME SELF-CARE
== END 2019-04-25 17:01 | disposition home or self-care (01) | DRG 812 ==
LOC: EC 16:54 → 4SSUR 19:00
PROVIDERS: ADMIT Hospitalist; ATTEND Hospitalist
PROC: 30233N1 Transfusion of Nonautologous Red Blood Cells into Peripheral Vein, Percutaneous Approach (ICD-10-PCS; principal; 2019-04-24)
DX: D64.9 Anemia, unspecified (principal); E66.9 Obesity, unspecified; Z68.30 Body mass index [BMI] 30.0-30.9, adult; J45.909 Unspecified asthma, uncomplicated; K21.9 Gastro-esophageal reflux disease without esophagitis; K29.60 Other gastritis without bleeding; K57.30 Diverticulosis of large intestine without perforation or abscess without bleeding; K25.9 Gastric ulcer, unspecified as acute or chronic, without hemorrhage or perforation; Z79.899 Other long term (current) drug therapy; Z82.3 Family history of stroke; Z82.49 Family history of ischemic heart disease and other diseases of the circulatory system; Z83.3 Family history of diabetes mellitus; Z87.11 Personal history of peptic ulcer disease; Z87.891 Personal history of nicotine dependence; Z90.49 Acquired absence of other specified parts of digestive tract; Z88.0 Allergy status to penicillin; Z88.8 Allergy status to other drugs, medicaments and biological substances; Z88.6 Allergy status to analgesic agent; Z91.013 Allergy to seafood; M25.50 Pain in unspecified joint
CPT/HCPCS: 36415; 80048; 85025; 85610; 85730; 86850; 86870; 86880; 86900; 86901; 86920; 93005; 96374; 99284

== ENCOUNTER 2019-04-26 10:50 | Day surgery (SDC) | payer BC ==
[2019-04-26 11:23] VITALS: RESP 16; TEMP 97.8
[2019-04-26] MEDS ORDERED: LACTATED RINGERS 1,000 ML IV SCH (11:23)
[2019-04-26] MEDS ORDERED: LIDOCAINE 1% 20 ML VIAL (10MG/ML) FOR IV START INTRADERMA PRN (11:23)
[2019-04-26 11:30] VITALS: BMI 31.8
[2019-04-26] MEDS ORDERED: PROPOFOL 10 MG/ML 20 ML VIAL IV ONE (12:09)
[2019-04-26] MEDS ORDERED: LIDOCAINE 1% INJ 10MG/ML (20 ML MDV) ONE (12:09)
[2019-04-26] MEDS ORDERED: fentaNYL (PF) 50 MCG/ML 2 ML AMP ONE (12:09)
--- NOTE | 2019-04-26 12:39 | P.PCN ---
Date of Procedure: 04/26/19 Preoperative Diagnosis: Anemia. Small monoclonal gammopathy Postoperative Diagnosis: Same Procedure(s) Performed: Bone marrow aspiration and Biopsy Anesthesia: MAC Surgeon: Umer Kendall Asset Coordinator #1: Stated None Pathology: other Condition: stable Disposition: same day Indications for Procedure: Persistent anemia, transfusion requiring, with negative clinical workup. Very small monoclonal gammopathy Operative Findings: Adequate samples Description of Procedure: The procedure was explained in detail to the patient when he was inpatient a day ago. He presented to the outpatient endoscopy suite, where IV access and informed consent obtained. He was then placed in left lateral decubitus position. Area over both posterior iliac crest was cleaned and prepped with chlorhexidine and sterile draping. IV sedation was then initiated. Local anesthesia was administered with lidocaine to the right posterior iliac crest. A Jamshidi needle was then inserted and bone marrow aspirate and biopsy obtained. The initial aspirate sample seemed to be somewhat low in spicules due to which additional samples were obtained, with additional passes. On withdrawal of the needle hemostasis was easily achieved. Blood loss was minimal and recovery from sedation and satisfactory. He appeared to have tolerated the procedure well without any obvious immediate complications
[2019-04-26 13:00] LABS: HCT 21.4 % (39.0-53.0); HGB 7.1 gm/dL (13.0-17.5); MCH 29.5 pg (25.0-35.0); MCHC 33.2 g/dL (31.0-37.0); MCV 88.7 fL (80.0-100.0); Mean Platelet Volume 7.7; Platelet Count 271 k/uL (150-450); RBC 2.41 m/uL (4.30-5.90); RDW 13.1 % (11.5-15.5); WBC 10.8 k/uL (3.8-10.6)
[2019-04-26 13:18] VITALS: BP 123/78; PULSE 76
[2019-04-26 13:28] LABS: Reticulocyte % 0.2 % (0.5-2.0)
[2019-04-26 13:58] LABS: Eosinophils # (M) 0.32 k/uL (0-0.7); Lymphocytes # (M) 5.94 k/uL (1.0-4.8); Monocytes # (M) 0.43 k/uL (0-1.0); Neutrophils % (M) 39 %; Nucleated Red Blood Cells 0 /100 WBC (0-0); Total Cells Counted 200
[2019-04-26 13:59] LABS: Anisocytosis (M) Present; Poikilocytosis (M) Present
== END 2019-04-26 13:28 | disposition home or self-care (01) ==
LOC: OR 10:50
PROVIDERS: ATTEND Internal Medicine Hematology & Oncology
DX: D72.820 Lymphocytosis (symptomatic) (principal); D64.9 Anemia, unspecified; D47.2 Monoclonal gammopathy; J45.909 Unspecified asthma, uncomplicated; K21.9 Gastro-esophageal reflux disease without esophagitis; K29.70 Gastritis, unspecified, without bleeding; K57.90 Diverticulosis of intestine, part unspecified, without perforation or abscess without bleeding; Z88.0 Allergy status to penicillin; Z88.8 Allergy status to other drugs, medicaments and biological substances; Z88.6 Allergy status to analgesic agent; Z91.013 Allergy to seafood; Z79.899 Other long term (current) drug therapy; Z90.49 Acquired absence of other specified parts of digestive tract; Z98.890 Other specified postprocedural states; Z80.6 Family history of leukemia; Z80.7 Family history of other malignant neoplasms of lymphoid, hematopoietic and related tissues; Z87.01 Personal history of pneumonia (recurrent); Z87.891 Personal history of nicotine dependence; Z83.3 Family history of diabetes mellitus; Z82.0 Family history of epilepsy and other diseases of the nervous system; Z82.49 Family history of ischemic heart disease and other diseases of the circulatory system
CPT/HCPCS: 85025; 85045; 38222; J2001; J3010; J2704

== ENCOUNTER → 2019-04-30 | Outpatient (CLI) | payer BC ==
--- NOTE | 2019-04-30 13:45 | US ---
EXAMINATION TYPE: US venous doppler duplex LE BI DATE OF EXAM: 04/30/2019 12:53 PM COMPARISON: 03/12/2019 CLINICAL HISTORY: M79.662, R22.42, M79.661, M22.41 PAIN/SWELLING LE BILATERAL. Low hemoglobin, edema bilateral legs SIDE PERFORMED: bilateral TECHNIQUE: The lower extremity deep venous system is examined utilizing real time linear array sonog yoel with graded compression, doppler sonography and color-flow sonography. VESSELS IMAGED: External Iliac Vein (EIV) Common Femoral Vein Deep Femoral Vein Greater Saphenous Vein * Femoral Vein Popliteal Vein Small Saphenous Vein * Proximal Calf Veins (* superficial vessels) Right Leg: No evidence of DVT Left Leg: No evidence of DVT IMPRESSION: 1. No diagnostic evidence of DVT bilaterally.
== END | disposition home or self-care (01) ==
LOC: RADUSWWP 12:13
PROVIDERS: ATTEND Internal Medicine Hematology & Oncology
DX: M79.662 Pain in left lower leg (principal); M79.661 Pain in right lower leg; Z88.6 Allergy status to analgesic agent; Z88.0 Allergy status to penicillin
CPT/HCPCS: 93970

== ENCOUNTER → 2019-05-01 | Outpatient (CLI) | payer BC ==
--- NOTE | 2019-05-01 09:43 | US ---
EXAMINATION TYPE: US liver DATE OF EXAM: 05/01/2019 COMPARISON: Abdominal ultrasound 2011. CLINICAL HISTORY: K83.8 Other specified diseases of biliary tract. GB removed x 1 year ago. RUQ pain . EXAM MEASUREMENTS: Liver Length: 16.3 cm CBD: 0.8 cm Right Kidney: 11.1 x 5.0 x 4.6 cm Pancreas: Appears echogenic. Liver: Increased attenuation, decreased visualization of vessels suggestive of fatty infiltrate. Thi s limits evaluation for hepatic masses. Gallbladder: Surgically absent Evidence for sonographic Juarez's sign: neg CBD: wnl for postcholecystectomy status Right Kidney: No hydronephrosis or masses seen IMPRESSION: Sonographic findings most commonly related to hepatic steatosis appearing moderate in deg ree. Correlate with liver function tests.
== END | disposition home or self-care (01) ==
LOC: RADUSWWP 08:16
PROVIDERS: ATTEND Internal Medicine Hematology & Oncology
DX: K83.8 Other specified diseases of biliary tract (principal); Z88.0 Allergy status to penicillin; Z88.6 Allergy status to analgesic agent; Z88.8 Allergy status to other drugs, medicaments and biological substances
CPT/HCPCS: 76705

== ENCOUNTER → 2019-07-02 | Outpatient (CLI) | payer BC ==
[~2019-07-02] MED LIST: SODIUM CHLORIDE 0.9% 500 ML 500 ML in EMPTY BAG 1 BAG IV PRN
[2019-07-02 10:35] VITALS: BP 110/72; PULSE 73; RESP 18; TEMP 98
== END | disposition home or self-care (01) ==
LOC: PROCWHC3 08:25
PROVIDERS: ATTEND Internal Medicine Hematology & Oncology
DX: D64.89 Other specified anemias (principal)
CPT/HCPCS: 36430; 86850; 86870; 86880; 86900; 86901; 86902; 86920

== ENCOUNTER → 2019-07-09 | Outpatient (CLI) | payer BC ==
[2019-07-09 11:35] VITALS: BMI 31.2
[2019-07-09 14:23] VITALS: RESP 16; TEMP 98
[2019-07-09 15:06] VITALS: BP 116/73; PULSE 93
== END | disposition home or self-care (01) ==
LOC: PROCWHC3 08:47
PROVIDERS: ATTEND Internal Medicine Hematology & Oncology
DX: D64.89 Other specified anemias (principal)
CPT/HCPCS: 86900; 86901; 86902; 86850; 86920; 86870; 86880; 36430; P9016; J1642

== ENCOUNTER → 2019-07-17 | Outpatient (CLI) | payer BC ==
[2019-07-17 08:18] VITALS: RESP 16
[2019-07-17 10:04] VITALS: BP 117/75; PULSE 100; TEMP 98.3
== END | disposition home or self-care (01) ==
LOC: PROCWHC3 07:54
PROVIDERS: ATTEND Internal Medicine Hematology & Oncology
DX: D64.89 Other specified anemias (principal)
CPT/HCPCS: 86900; 86901; 86850; 86920; 36430; P9016; J1642

== ENCOUNTER 2021-11-03 17:52 | Emergency (ER) | payer BC, OTHER ==
[2021-11-03] MEDS ORDERED: MORPHINE SULFATE 4 MG/ML SYRINGE IV STA (19:04)
[2021-11-03] MEDS ORDERED: SODIUM CHLORIDE 0.9% 1,000 ML IV STA (19:04)
[2021-11-03] MEDS ORDERED: ONDANSETRON 4 MG/2 ML VIAL IVP STA (19:04)
--- NOTE | 2021-11-03 19:08 | ED ---
Abdominal Pain HPI - General Chief Complaint: Abdominal Pain Stated Complaint: abd pain Time Seen by Provider: 11/03/21 18:55 Source: patient, RN notes reviewed Mode of arrival: ambulatory Limitations: no limitations - History of Present Illness Initial Comments: This is a pleasant 56-year-old male with a history of CLL and diverticulosis. Patient presents to the emergency department stating that he has had lower abdominal pain which started about 1 PM. He states it seems to be in the lower abdomen, mostly suprapubic but also in the left and right lower quadrants. Seems to go down to the perineal area. He states that it spares the scrotal area. No hematuria. No diarrhea. Patient does have chronic constipation but states this is unchanged. No nausea or vomiting. No headache, no fever or chills, no changes in vision or hearing, no sore throat or difficulty with speech, no neck pain, no chest pain or shortness of breath, no nausea or vomiting, no changes in urination or bowel movements, no numbness or tingling, no extremity pain, no skin rashes or lesions. Note that the patient also has had a history of kidney stones, diverticulosis, and prostatitis. Patient is denying any testicular pain or penile discharge. No rashes or lesions - Related Data Home Medications Medication Instructions Recorded Confirmed Acetaminophen Tab [Tylenol] 500 mg PO Q6HR PRN 03/27/19 11/06/19 Allergies Allergy/AdvReac Type Severity Reaction Status Date / Time Penicillins Allergy Unknown Verified 11/03/21 17:59 Childhood prednisone Allergy Rash/Hives Verified 11/03/21 17:59 shellfish derived [Shellfish] AdvReac "BPDY FELT Verified 11/03/21 17:59 LIKE IT FELL ASLEEP" Review of Systems ROS Statement: Those systems with pertinent positive or pertinent negative responses have been documented in the HPI. ROS Other: All systems not noted in ROS Statement are negative. Past Medical History Past Medical History: Asthma, GERD/Reflux, Osteoarthritis (OA), Pneumonia Additional Past Medical History / Comment(s): Recurrent anemia, small stomach ulcer, negative stool for OBs, past gallstones-pt states he was very ill and had liver involvement, diverticular disease, arthritis in multiple joints, chronic pain, occasional headaches. History of Any Multi-Drug Resistant Organisms: None Reported Past Surgical History: Cholecystectomy Additional Past Surgical History / Comment(s): EGD, colonoscopy Past Anesthesia/Blood Transfusion Reactions: No Reported Reaction Past Psychological History: No Psychological Hx Reported Smoking Status: Former smoker Past Alcohol Use History: None Reported Past Drug Use History: None Reported - Past Family History Mother Family Medical History: Diabetes Mellitus Additional Family Medical History / Comment(s): diet controlled diabetic Father Family Medical History: Cancer, CVA/TIA, Myocardial Infarction ([place]) Additional Family Medical History / Comment(s): Multiple types of cancer, CVAs, MIs with first [place] in his late 40s or early 50s. General Exam Limitations: no limitations General appearance: alert, in distress (Mild distress) Head exam: Present: atraumatic, normocephalic, normal inspection Eye exam: Present: normal appearance, PERRL, EOMI. Absent: scleral icterus, conjunctival injection, periorbital swelling ENT exam: Present: normal exam, normal oropharynx, mucous membranes moist, normal external ear exam. Absent: mucous membranes dry Neck exam: Present: normal inspection, full ROM. Absent: tenderness, meningismus, lymphadenopathy Respiratory exam: Present: normal lung sounds bilaterally. Absent: respiratory distress, wheezes, rales, rhonchi, stridor, chest wall tenderness, accessory muscle use, decreased breath sounds, prolonged expiratory Cardiovascular Exam: Present: regular rate, normal rhythm, normal heart sounds. Absent: systolic murmur, diastolic murmur, rubs, gallop, clicks GI/Abdominal exam: Present: soft, tenderness (Tender across the lower abdomen with voluntary guarding.), guarding, normal bowel sounds. Absent: distended, rebound, rigid Rectal exam: Present: normal inspection, normal rectal tone, normal prostate. Absent: decreased rectal tone, hemorrhoids, mass, tenderness, prostate tenderness, prostate enlargement Extremities exam: Present: normal inspection, full ROM, normal capillary refill. Absent: tenderness, pedal edema, joint swelling, calf tenderness Back exam: Present: normal inspection, full ROM Neurological exam: Present: alert, oriented X3, CN II-XII intact Psychiatric exam: Present: normal affect, normal mood. Absent: anxious, flat affect Skin exam: Present: warm, dry, intact, normal color. Absent: rash Course Vital Signs 11/03/21 11/03/21 17:58 21:02 Temperature 97.9 F 98.8 F Pulse Rate 89 94 Respiratory 16 18 Rate Blood Pressure 150/87 124/88 O2 Sat by Pulse 96 98 Oximetry - Reevaluation(s) Reevaluation #1: 11/03/21 21:27 Medical record is reviewed Symptoms are improved here in the emergency department Patient is informed of results and questions answered Patient in no distress Medical Decision Making - Medical Decision Making Patient presents with lower abdominal pain. Differential is wide, given the patient's symptomology, appendicitis, diverticulitis, prostatitis, renal saw within the differential. This likely be cardiovascular in etiology based on the patient's presentation. CT findings consistent with sigmoid diverticulitis. Patient also has evidence of mesenteric adenitis. Patient has ALLERGY to penicillins. We'll treat with fluoroquinolones and metronidazole. Patient not vomiting. Patient hemodynamically are stable. Patient is a good candidate for outpatient treatment. Patient feels well enough to go home. The case was discussed in detail with ED attending physician. Presentation, findings, treatment plan discussed in detail. Dr. Burden. Patient was told to return to the ER for any signs or symptoms worsen. Told to return immediately if any other problems arise. All questions answered. Treatment plan discussed. Patient in agreement Every effort has been made to ensure accuracy of this dictation. However, due to the limitations of electronic medical records and dictation devices, errors in charting still occur. - Lab Data Result diagrams: 11/03/21 19:17 11/03/21 19:17 Lab Results 11/03/21 11/03/21 11/03/21 Range/Units 19:17 19:17 19:17 WBC 11.1 H (3.8-10.6) k/uL RBC 5.31 (4.30-5.90) m/uL Hgb 16.0 (13.0-17.5) gm/dL Hct 48.1 (39.0-53.0) % MCV 90.5 (80.0-100.0) fL MCH 30.1 (25.0-35.0) pg MCHC 33.3 (31.0-37.0) g/dL RDW 13.5 (11.5-15.5) % Plt Count 145 L (150-450) k/uL MPV 8.2 Neutrophils % (Manual) 83 % Band Neuts % (Manual) 2 % Lymphocytes % (Manual) 9 % Monocytes % (Manual) 4 % Eosinophils % (Manual) 2 % Neutrophils # (Manual) 9.40 H (1.3-7.7) k/uL Lymphocytes # (Manual) 1.00 (1.0-4.8) k/uL Monocytes # (Manual) 0.44 (0-1.0) k/uL Eosinophils # (Manual) 0.22 (0-0.7) k/uL Nucleated RBCs 0 (0-0) /100 WBC Manual Slide Review Performed RBC Morphology Normal ESR 2 (0-15) mm/hr Sodium 137 (137-145) mmol/L Potassium 4.1 (3.5-5.1) mmol/L Chloride 103 (98-107) mmol/L Carbon Dioxide 30 (22-30) mmol/L Anion Gap 4 mmol/L BUN 16 (9-20) mg/dL Creatinine 0.95 (0.66-1.25) mg/dL Est GFR (CKD-EPI)AfAm >90 (>60 ml/min/1.73 sqM) Est GFR (CKD-EPI)NonAf >90 (>60 ml/min/1.73 sqM) Glucose 121 H (74-99) mg/dL Plasma Lactic Acid Kirby (0.7-2.0) mmol/L Calcium 9.3 (8.4-10.2) mg/dL Total Bilirubin 0.4 (0.2-1.3) mg/dL AST 25 (17-59) U/L ALT 35 (4-49) U/L Alkaline Phosphatase 65 (38-126) U/L C-Reactive Protein 1.0 H (<1.0) mg/dL Total Protein 6.2 L (6.3-8.2) g/dL Albumin 4.1 (3.5-5.0) g/dL Lipase 39 (23-300) U/L Urine Color Yellow Urine Appearance Clear (Clear) Urine pH 5.0 (5.0-8.0) Ur Specific [place] 1.023 (1.001-1.035) Urine Protein Negative (Negative) Urine Glucose (UA) Negative (Negative) Urine Ketones Negative (Negative) Urine Blood Trace H (Negative) Urine Nitrite Negative (Negative) Urine Bilirubin Negative (Negative) Urine Urobilinogen <2.0 (<2.0) mg/dL Ur Leukocyte Esterase Negative (Negative) Urine RBC 2 (0-5) /hpf Urine WBC <1 (0-5) /hpf Ur Squamous Epith Cells <1 (0-4) /hpf Urine Mucus Rare H (None) /hpf Stool Occult Blood (Negative) 11/03/21 11/03/21 Range/Units 19:17 19:17 WBC (3.8-10.6) k/uL RBC (4.30-5.90) m/uL Hgb (13.0-17.5) gm/dL Hct (39.0-53.0) % MCV (80.0-100.0) fL MCH (25.0-35.0) pg MCHC (31.0-37.0) g/dL RDW (11.5-15.5) % Plt Count (150-450) k/uL MPV Neutrophils % (Manual) % Band Neuts % (Manual) % Lymphocytes % (Manual) % Monocytes % (Manual) % Eosinophils % (Manual) % Neutrophils # (Manual) (1.3-7.7) k/uL Lymphocytes # (Manual) (1.0-4.8) k/uL Monocytes # (Manual) (0-1.0) k/uL Eosinophils # (Manual) (0-0.7) k/uL Nucleated RBCs (0-0) /100 WBC Manual Slide Review RBC Morphology ESR (0-15) mm/hr Sodium (137-145) mmol/L Potassium (3.5-5.1) mmol/L Chloride (98-107) mmol/L Carbon Dioxide (22-30) mmol/L Anion Gap mmol/L BUN (9-20) mg/dL Creatinine (0.66-1.25) mg/dL Est GFR (CKD-EPI)AfAm (>60 ml/min/1.73 sqM) Est GFR (CKD-EPI)NonAf (>60 ml/min/1.73 sqM) Glucose (74-99) mg/dL Plasma Lactic Acid [place] 1.3 (0.7-2.0) mmol/L Calcium (8.4-10.2) mg/dL Total Bilirubin (0.2-1.3) mg/dL AST (17-59) U/L ALT (4-49) U/L Alkaline Phosphatase (38-126) U/L C-Reactive Protein (<1.0) mg/dL Total Protein (6.3-8.2) g/dL Albumin (3.5-5.0) g/dL Lipase (23-300) U/L Urine Color Urine Appearance (Clear) Urine pH (5.0-8.0) Ur Specific [place] (1.001-1.035) Urine Protein (Negative) Urine Glucose (UA) (Negative) Urine Ketones (Negative) Urine Blood (Negative) Urine Nitrite (Negative) Urine Bilirubin (Negative) Urine Urobilinogen (<2.0) mg/dL Ur Leukocyte Esterase (Negative) Urine RBC (0-5) /hpf Urine WBC (0-5) /hpf Ur Squamous Epith Cells (0-4) /hpf Urine Mucus (None) /hpf Stool Occult Blood Negative (Negative) - Radiology Data Radiology results: image reviewed Disposition Clinical Impression: Sigmoid diverticulitis, Mesenteric adenitis Disposition: HOME SELF-CARE Condition: Stable Instructions (If sedation given, give patient instructions): Diverticulitis (ED) Additional Instructions: Follow-up with your regular physician as directed. Return to the ER immediately if any symptoms worsen, new symptoms arise, or any other problems develop. Call and make a follow-up appointment at 8 AM tomorrow morning. Take all antibiotics as directed. Clear liquid diet for 24 hours. Is patient prescribed a controlled substance at d/c from ED?: No Referrals: Waqas Espinal DO [Primary Care Provider] - 1-2 days Time of Disposition: 21:29
[2021-11-03 19:44] LABS: HCT 48.1 % (39.0-53.0); MCH 30.1 pg (25.0-35.0); MCHC 33.3 g/dL (31.0-37.0); MCV 90.5 fL (80.0-100.0); Mean Platelet Volume 8.2; Platelet Count 145 k/uL (150-450); RBC 5.31 m/uL (4.30-5.90); RDW 13.5 % (11.5-15.5); WBC 11.1 k/uL (3.8-10.6)
[2021-11-03 19:46] LABS: Appearance,Urine Clear (Clear); Bilirubin,Urine Negative (Negative); Blood,Urine Trace (Negative); Color,Urine Yellow; Glucose,Urine (UA) Negative (Negative); Ketones,Urine Negative (Negative); Leukocyte Esterase,Urine Negative (Negative); Mucus,Urine Rare /hpf; Nitrite,Urine Negative (Negative); Protein,Urine Negative (Negative); RBC,Urine 2 /hpf (0-5); Specific Gravity,Urine 1.023 (1.001-1.035); Squamous Epithelial Cell,Urine <1 /hpf (0-4); Urobilinogen,Urine <2.0 mg/dL (<2.0); WBC,Urine <1 /hpf (0-5)
[2021-11-03 19:52] LABS: ALT 35 U/L (4-49); AST 25 U/L (17-59); African American GFR (CKD) >90 (>60 ml/min/1.73 sqM); Albumin 4.1 g/dL (3.5-5.0); Alkaline Phosphatase 65 U/L (38-126); Anion Gap 4 mmol/L; Blood Urea Nitrogen 16 mg/dL (9-20); Calcium 9.3 mg/dL (8.4-10.2); Carbon Dioxide 30 mmol/L (22-30); Chloride 103 mmol/L (98-107); Glucose 121 mg/dL (74-99); Lipase 39 U/L (23-300); Non-African American GFR(CKD) >90 (>60 ml/min/1.73 sqM); Potassium 4.1 mmol/L (3.5-5.1); Sodium 137 mmol/L (137-145); Total Bilirubin 0.4 mg/dL (0.2-1.3); Total Protein 6.2 g/dL (6.3-8.2)
--- NOTE | 2021-11-03 20:49 | CT ---
EXAMINATION TYPE: CT abdomen pelvis w con DATE OF EXAM: 11/03/2021 COMPARISON: 04/05/2012 INDICATION: epigastirc pain DLP: 1618.8 mGycm, Automated exposure control for dose reduction was used. CONTRAST: 100 mL of Isovue 300. Study performed without Oral Contrast TECHNIQUE: Axial images were obtained from above the diaphragm to the pubic rami in the axial plane a t 5 mm thick sections. Reconstructed images are reviewed on the computer in the coronal plane. FINDINGS: Limited CT sections are obtained the lung bases. The lung bases are clear. Small hiatal hernia is p resent. CT ABDOMEN: There is mild increased stranding within the mid mesentery multiple small lymph nodes are within the mesentery in the mid epigastric region. Correlate for mesenteric adenitis. Liver: There is mild fatty infiltration of liver. No discrete masses are identified. Spleen: Normal Pancreas: Normal Adrenal glands: The adrenal glands are normal. Gallbladder: Surgically absent Kidneys: No masses are evident. No hydronephrosis is present. No cysts are present. Delayed images were obtained through the kidneys, which remain unremarkable. Aorta: Vascular calcification is within the aorta. Inferior vena cava: Normal. CT PELVIS: Diverticular changes are seen in the sigmoid colon. The sigmoid colon appears somewhat prominent. Inf lammatory changes are adjacent. Correlate for mild acute diverticulitis. This should be followed, und erlying mass is not excluded. Loops of bowel within the abdomen and pelvis are otherwise normal. There are loops of bowel which are incompletely distended or lack oral contrast limiting their evaluation. Appendix: Normal as visualized. Urinary bladder: Normal. Genitourinary structures: Prostate is normal Osseous structures: No suspicious lytic or sclerotic lesions. IMPRESSIONS: 1. Clinical correlation recommended for acute diverticulitis sigmoid colon. Underlying mass is not e xcluded and this should be followed up. 2. Vague increased density within the mesentery with multiple small lymph nodes scattered through the mesentery in the epigastric region. Correlate for mesenteric adenitis.
[2021-11-03 20:51] LABS: Band Neutrophils % 2 %; Eosinophils # (M) 0.22 k/uL (0-0.7); Monocytes # (M) 0.44 k/uL (0-1.0); Neutrophils % (M) 83 %; Nucleated Red Blood Cells 0 /100 WBC (0-0); RBC Morphology Normal; Total Cells Counted 100
[2021-11-03 20:58] LABS: Erythrocyte Sedimentation Rate 2 mm/hr (0-15)
[2021-11-03 21:03] VITALS: BP 124/88; PULSE 94; RESP 18; TEMP 98.8
[2021-11-03] MEDS ORDERED: LEVOFLOXACIN 750 MG TAB PO STA (21:26)
[2021-11-03] MEDS ORDERED: metroNIDAZOLE 500 MG TAB PO STA (21:27)
[2021-11-04 15:22] LABS: C. trachomatis,PCR Negative (Neg,Equiv); Chlamydia trachomatis Source Urine; N. gonorrhoeae,PCR Negative (Neg,Equiv); Neisseria Source Urine
== END 2021-11-03 21:52 | disposition home or self-care (01) ==
LOC: EC 17:52
DX: I88.0 Nonspecific mesenteric lymphadenitis (principal); K57.32 Diverticulitis of large intestine without perforation or abscess without bleeding; J45.909 Unspecified asthma, uncomplicated; Z87.891 Personal history of nicotine dependence; Z88.0 Allergy status to penicillin; Z88.8 Allergy status to other drugs, medicaments and biological substances; Z91.013 Allergy to seafood
CPT/HCPCS: 99284; 96374; 96375; 96361; 36415; 80053; 85652; 83605; 83690; 85025; 86140; 82272; 81001; 87491; 87591; 74177; J2270; J2405; Q9967

== ENCOUNTER → 2022-06-07 | Outpatient (CLI) | payer OTHER | END | disposition home or self-care (01) | LOC: LABWHC1 08:57 | PROVIDERS: ATTEND Internal Medicine Hematology & Oncology | DX: D64.89 Other specified anemias (principal) ==

== ENCOUNTER → 2022-06-22 | Outpatient (CLI) | payer OTHER | END | disposition home or self-care (01) | LOC: LABWHC1 16:17 | PROVIDERS: ATTEND Internal Medicine Hematology & Oncology | DX: D64.89 Other specified anemias (principal) | CPT/HCPCS: 86850; 86900; 86901 ==

== ENCOUNTER 2022-07-15 15:43 | Emergency (ER) | payer OTHER ==
[2022-07-15 16:20] LABS: Basophils % (A) 1 %; Eosinophils % (A) 1 %; Lymphocytes # (A) 0.5 k/uL (1.0-4.8); Lymphocytes % (A) 21 %; MCH 30.8 pg (25.0-35.0); MCV 90.6 fL (80.0-100.0); Mean Platelet Volume 12.1; Monocytes # (A) 0.2 k/uL (0-1.0); Monocytes % (A) 8 %; Neutrophils # (A) 1.8 k/uL (1.3-7.7); Neutrophils % (A) 66 %; Platelet Count 130 k/uL (150-450); RBC 1.95 m/uL (4.30-5.90); RDW 13.1 % (11.5-15.5); WBC 2.7 k/uL (3.8-10.6)
[2022-07-15 16:24] LABS: HCT 17.7 % (39.0-53.0)
[2022-07-15 16:29] LABS: Partial Thromboplastin Time 22.8 sec (22.0-30.0); Prothrombin Time 10.5 sec (9.0-12.0)
[2022-07-15 16:34] LABS: ALT 21 U/L (4-49); African American GFR (CKD) >90 (>60 ml/min/1.73 sqM); Albumin 3.8 g/dL (3.5-5.0); Alkaline Phosphatase 52 U/L (38-126); Anion Gap 5 mmol/L; Calcium 8.4 mg/dL (8.4-10.2); Carbon Dioxide 26 mmol/L (22-30); Chloride 104 mmol/L (98-107); Glucose 114 mg/dL (74-99); Non-African American GFR(CKD) >90 (>60 ml/min/1.73 sqM); Potassium 3.8 mmol/L (3.5-5.1); Sodium 135 mmol/L (137-145)
[2022-07-15 16:37] LABS: AST 16 U/L (17-59); Blood Urea Nitrogen 13 mg/dL (9-20); Total Bilirubin 0.8 mg/dL (0.2-1.3); Total Protein 5.8 g/dL (6.3-8.2)
--- NOTE | 2022-07-15 18:38 | ED ---
General Adult HPI - General Source: patient Mode of arrival: ambulatory Limitations: no limitations <Ema Adams - Last Filed: 07/15/22 18:39> <Jim Burden - Last Filed: 07/15/22 20:21> - General Chief complaint: Recheck/Abnormal Lab/Rx Stated complaint: Low hemoglobin Time Seen by Provider: 07/15/22 15:54 - History of Present Illness Initial comments: Patient is a 56-year-old male who presents to the emergency department for low hemoglobin. 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 She states he has blood transfusions often. He was at [facility] this afternoon in his hemoglobin was found to be 6.0. Patient sent in for blood transfusion. He currently feels very fatigued. He denies fever, chills, upper respiratory symptoms, chest pain, shortness of breath, nausea, vomiting, diarrhea, blood in stool. (Ema Adams) - Related Data Home Medications Medication Instructions Recorded Confirmed Acetaminophen Tab [Tylenol] 500 mg PO Q6HR PRN 03/27/19 07/15/22 Cholecalciferol [Vitamin D3 (10 10 mcg PO DAILY 07/15/22 07/15/22 Mcg = 400 Iu)] Venetoclax [Venclexta] 200 mg PO DAILY 07/15/22 07/15/22 allopurinoL [Zyloprim] 300 mg PO DAILY 07/15/22 07/15/22 Allergies Allergy/AdvReac Type Severity Reaction Status Date / Time Penicillins Allergy Unknown Verified 07/15/22 18:40 Childhood prednisone Allergy Rash/Hives Verified 07/15/22 18:40 shellfish derived [Shellfish] AdvReac "BPDY FELT Verified 07/15/22 18:40 LIKE IT FELL ASLEEP" chloraprep AdvReac Rash/Hives Uncoded 07/15/22 15:48 Review of Systems ROS Other: All systems not noted in ROS Statement are negative. <Ema Adams - Last Filed: 07/15/22 18:39> ROS Other: All systems not noted in ROS Statement are negative. <Jim Burden - Last Filed: 07/15/22 20:21> ROS Statement: Those systems with pertinent positive or pertinent negative responses have been documented in the HPI. Past Medical History Past Medical History: Asthma, GERD/Reflux, Osteoarthritis (OA), Pneumonia Additional Past Medical History / Comment(s): Recurrent anemia, small stomach ulcer, negative stool for OBs, past gallstones-pt states he was very ill and had liver involvement, diverticular disease, arthritis in multiple joints, chronic pain, occasional headaches. History of Any Multi-Drug Resistant Organisms: None Reported Past Surgical History: Cholecystectomy, Hernia Repair Additional Past Surgical History / Comment(s): EGD, colonoscopy, hernia/ abdominal repair with mesh Past Anesthesia/Blood Transfusion Reactions: No Reported Reaction Past Psychological History: No Psychological Hx Reported Smoking Status: Former smoker Past Alcohol Use History: None Reported Past Drug Use History: None Reported - Past Family History Mother Family Medical History: Diabetes Mellitus Additional Family Medical History / Comment(s): diet controlled diabetic Father Family Medical History: Cancer, CVA/TIA, Myocardial Infarction (CO) Additional Family Medical History / Comment(s): Multiple types of cancer, CVAs, MIs with first CO in his late 40s or early 50s. <Ema Adams - Last Filed: 07/15/22 18:39> General Exam Limitations: no limitations General appearance: alert, in no apparent distress Head exam: Present: atraumatic, normocephalic, normal inspection Respiratory exam: Present: normal lung sounds bilaterally. Absent: respiratory distress, wheezes, rales, rhonchi, stridor Cardiovascular Exam: Present: normal rhythm, tachycardia, normal heart sounds. Absent: regular rate, systolic murmur, diastolic murmur, rubs, gallop, clicks GI/Abdominal exam: Present: soft, normal bowel sounds. Absent: distended, tenderness, guarding, rebound, rigid Neurological exam: Present: alert, oriented X3, CN II-XII intact Psychiatric exam: Present: normal affect, normal mood Skin exam: Present: warm, dry, intact, pallor. Absent: normal color, rash <AngieEma - Last Filed: 07/15/22 18:39> Course Vital Signs 07/15/22 07/15/22 07/15/22 15:44 19:03 19:34 Temperature 97.9 F 98.7 F Pulse Rate 115 H 104 H 101 H Respiratory 20 18 18 Rate Blood Pressure 117/68 114/73 O2 Sat by Pulse 100 97 99 Oximetry 07/15/22 07/15/22 19:44 20:04 Temperature 97.5 F L 98.3 F Pulse Rate 100 103 H Respiratory 18 18 Rate Blood Pressure 114/72 111/70 O2 Sat by Pulse 96 98 Oximetry Medical Decision Making - Lab Data Result diagrams: 07/15/22 16:07 07/15/22 16:07 <Angie,Ema - Last Filed: 07/15/22 18:39> - Lab Data Result diagrams: 07/15/22 16:07 07/15/22 16:07 <Jim Burden - Last Filed: 07/15/22 20:21> - Medical Decision Making Was pt. sent in by a medical professional or institution (, PA, ASSOCIATE PROFESSOR OF LITERATURE, urgent care, hospital, or fci...) When possible be specific @ -[No] Did you speak to anyone other than the patient for history (EMS, parent, family, police, friend...)? What history was obtained from this source @ -[No] Did you review nursing and triage notes (agree or disagree)? Why? @ -[I reviewed and agree with nursing and triage notes] Were old charts reviewed (outside hosp., previous admission, EMS record, old EKG, old radiological studies, urgent care reports/EKG's, fci records)? Report findings @ Yes, reviewed previous CBC. Patient has history of chronic anemia and recurrent leukopenia. Differential Diagnosis (chest pain, altered mental status, abdominal pain women, abdominal pain men, vaginal bleeding, weakness, fever, dyspnea, syncope, headache, dizziness, GI bleed, back pain, seizure, CVA, palpatations, mental health)? @ -hemorrhoid, diverticulosis, GUD, PUD, anemia of chronic disease, EKG interpreted by me (3pts min.). @ -[As above] X-rays interpreted by me (1pt min.). @ -[None done] CT interpreted by me (1pt min.). @ -[None done] U/S interpreted by me (1pt. min.). @ -[None done] What testing was considered but not performed or refused? (CT, X-rays, U/S, labs)? Why? @ -[None] What meds were considered but not given or refused? Why? @ -[None] Did you discuss the management of the patient with other professionals (professionals i.e. DrVero, PA, ASSOCIATE PROFESSOR OF LITERATURE, lab, RT, psych nurse, social service liaison, cementing bulk material operator, teacher, giving officer, case management social worker)? Give summary @ -Case discussed case with Dr. Pepe covering for Dr. Kendall who recommends transfusion. States patient is cleared for discharge if he febrile and is not experiencing symptoms outside symptomatic anemia. Was smoking cessation discussed for >3mins.? @ -[No] Was critical care preformed (if so, how long)? @ -[No] Were there social determinants of health that impacted care today? How? (Homelessness, low income, unemployed, alcoholism, drug addiction, transportatio n, low edu. Level, literacy, decrease access to med. care, senior living, rehab)? @ -[No] Was there de-escalation of care discussed even if they declined (Discuss DNR or withdrawal of care, Hospice)? DNR status @ -[No] What co-morbidities impacted this encounter? (DM, HTN, Smoking, COPD, CAD, Cancer, CVA, ARF, Chemo, Hep., AIDS, mental health diagnosis, sleep apnea, morbid obesity)? @ -[None] Was patient admitted / discharged? Hospital course, mention meds given and route, prescriptions, significant lab abnormalities, going to OR and other pertinent info. @ -This is 56-year-old with CLL presenting for low hemoglobin. Pallor is noted. There is pancytopenia. Acute on chronic anemia.Hemoglobin is 6.0. Patient was given 1 unit of packed red cells. Symptoms improving, patient feels well enough for discharge with follow-up in the office. Return parameters discussed. Undiagnosed new problem with uncertain prognosis? @ -[No] Drug Therapy requiring intensive monitoring for toxicity (Heparin, Nitro, Insulin, Cardizem)? @ -[No] Were any procedures done? @ -[No] Diagnosis/symptom? @ -symptomatic anemia Acute, or Chronic, or Acute on Chronic? @ -acute on chronic Uncomplicated (without systemic symptoms) or Complicated (systemic symptoms)? @ -uncomplicated Side effects of treatment? @ -[No] Exacerbation, Progression, or Severe Exacerbation? @ -[No] Poses a threat to life or bodily function? How? (Chest pain, USA, CO, pneumonia, PE, COPD, DKA, ARF, appy, cholecystitis, CVA, Diverticulitis, Homicidal, Suicidal, threat to staff... and all critical care pts) @ -[No] Dr. Burden is my attending. (Ema Adams) Patient signed out to me by previous shift physician corporate legal assistant, Ema Adams. Briefly, patient is a 56-year-old male with blood cancer. Patient regularly receives infusions for anemia. Patient was told that his hemoglobin was low. By the time he found out that he needed infusion the infusion center close. He is told to go to the ER to get the blood transfusion. Patient feels well. I bedside at 8:20 PM found to be stable medical condition. Patient given 1 unit tolerated well. Patient discharged. He does have an appointment with his oncologist on Monday. Return precautions discussed. (Jim Burden) - Lab Data Lab Results 07/15/22 07/15/22 07/15/22 Range/Units 16:07 16:07 16:07 WBC 2.7 L (3.8-10.6) k/uL RBC 1.95 L (4.30-5.90) m/uL Hgb 6.0 L* (13.0-17.5) gm/dL Hct 17.7 L* (39.0-53.0) % MCV 90.6 (80.0-100.0) fL MCH 30.8 (25.0-35.0) pg MCHC 34.0 (31.0-37.0) g/dL RDW 13.1 (11.5-15.5) % Plt Count 130 L (150-450) k/uL MPV 12.1 Neutrophils % 66 % Lymphocytes % 21 % Monocytes % 8 % Eosinophils % 1 % Basophils % 1 % Neutrophils # 1.8 (1.3-7.7) k/uL Lymphocytes # 0.5 L (1.0-4.8) k/uL Monocytes # 0.2 (0-1.0) k/uL Eosinophils # 0.0 (0-0.7) k/uL Basophils # 0.0 (0-0.2) k/uL PT (9.0-12.0) sec INR (<1.2) APTT (22.0-30.0) sec Sodium 135 L (137-145) mmol/L Potassium 3.8 (3.5-5.1) mmol/L Chloride 104 (98-107) mmol/L Carbon Dioxide 26 (22-30) mmol/L Anion Gap 5 mmol/L BUN 13 (9-20) mg/dL Creatinine 0.79 (0.66-1.25) mg/dL Est GFR (CKD-EPI)AfAm >90 (>60 ml/min/1.73 sqM) Est GFR (CKD-EPI)NonAf >90 (>60 ml/min/1.73 sqM) Glucose 114 H (74-99) mg/dL Calcium 8.4 (8.4-10.2) mg/dL Total Bilirubin 0.8 (0.2-1.3) mg/dL AST 16 L (17-59) U/L ALT 21 (4-49) U/L Alkaline Phosphatase 52 (38-126) U/L Total Protein 5.8 L (6.3-8.2) g/dL Albumin 3.8 (3.5-5.0) g/dL Blood Type O Positive Blood Type Recheck O Pos Bld Type Recheck Status No Antibody Screen NEGATIVE Crossmatch See Detail Spec Expiration Date 07/18/2022 - 230607/15/22 Range/Units 16:07 WBC (3.8-10.6) k/uL RBC (4.30-5.90) m/uL Hgb (13.0-17.5) gm/dL Hct (39.0-53.0) % MCV (80.0-100.0) fL MCH (25.0-35.0) pg MCHC (31.0-37.0) g/dL RDW (11.5-15.5) % Plt Count (150-450) k/uL MPV Neutrophils % % Lymphocytes % % Monocytes % % Eosinophils % % Basophils % % Neutrophils # (1.3-7.7) k/uL Lymphocytes # (1.0-4.8) k/uL Monocytes # (0-1.0) k/uL Eosinophils # (0-0.7) k/uL Basophils # (0-0.2) k/uL PT 10.5 (9.0-12.0) sec INR 1.0 (<1.2) APTT 22.8 (22.0-30.0) sec Sodium (137-145) mmol/L Potassium (3.5-5.1) mmol/L Chloride (98-107) mmol/L Carbon Dioxide (22-30) mmol/L Anion Gap mmol/L BUN (9-20) mg/dL Creatinine (0.66-1.25) mg/dL Est GFR (CKD-EPI)AfAm (>60 ml/min/1.73 sqM) Est GFR (CKD-EPI)NonAf (>60 ml/min/1.73 sqM) Glucose (74-99) mg/dL Calcium (8.4-10.2) mg/dL Total Bilirubin (0.2-1.3) mg/dL AST (17-59) U/L ALT (4-49) U/L Alkaline Phosphatase (38-126) U/L Total Protein (6.3-8.2) g/dL Albumin (3.5-5.0) g/dL Blood Type Blood Type Recheck Bld Type Recheck Status Antibody Screen Crossmatch Spec Expiration Date Disposition Is patient prescribed a controlled substance at d/c from ED?: No <Ema Adams - Last Filed: 07/15/22 18:39> <Jim Burden - Last Filed: 07/15/22 20:21> Clinical Impression: Symptomatic anemia, Pancytopenia Disposition: HOME SELF-CARE Condition: Good Instructions (If sedation given, give patient instructions): Pancytopenia (DC) Additional Instructions: Follow-up with Dr. Kendall in 1-2 days. Return to the ED if you experience new, concerning, or worsening symptoms. Referrals: Waqas Espinal DO [Primary Care Provider] - 1-2 days
[2022-07-15 19:04] VITALS: RESP 18
[2022-07-15 20:10] VITALS: TEMP 98.3
[2022-07-15 21:28] VITALS: BP 115/74; PULSE 95
== END 2022-07-15 21:31 | disposition home or self-care (01) ==
LOC: EC 15:43
DX: D64.9 Anemia, unspecified (principal); D61.818 Other pancytopenia; J45.909 Unspecified asthma, uncomplicated; Z87.891 Personal history of nicotine dependence; Z88.0 Allergy status to penicillin; Z91.013 Allergy to seafood; Z88.8 Allergy status to other drugs, medicaments and biological substances
CPT/HCPCS: 36415; 86900; 86901; 80053; 85025; 85610; 85730; 86850; 86920; 99284; 36430; P9040